=== PATIENT | female | born 1980 | race Caucasian/White ===

== ENCOUNTER 2018-06-01 12:08 | Inpatient (IN) ==
[2018-06-01] MEDS ORDERED: ZOFRAN IV ONE (12:15)
[2018-06-01] MEDS ORDERED: NS 1,000 ML IV ONE ×3 (12:15→14:08)
[2018-06-01 12:38] LABS: ALLEN TEST YES; BE -26.1 mmoll (-3.0-3.0); BLOOD TYPE ARTERIAL; HCO3-(ACT) 4.6 mmoll (20.0-26.0); METHB 1.3 % (0.0-1.5); O2(CT) 13.2 mL/dL (15.0-23.0); O2HB 95.5 % (95.0-99.0); PO2(98.6) 102 mmHg (60-100); SAMPLE BLOOD; SAO2 99.3 % (95.0-100.0); THB 9.7 g/dL (11.5-17.4)
[2018-06-01 12:39] LABS: MODALITY ROOM AIR; PCO2(98.6) 14 mmHg (35-45); pH(98.6) 6.99 (7.35-7.45)
[2018-06-01 13:20] LABS: BASO# 0.15 X1000 (0.0-0.2); BASO% 0.6 % (0.0-0.8); EOS# 0.04 X1000 (0.0-0.7); EOS% 0.2 % (0.0-10.0); HEMATOCRIT 33.9 % (37.0-47.0); HEMOGLOBIN 10.4 g/dL (12.0-16.0); IMM GRAN# 0.84 X1000 (0.0-0.04); IMM GRAN% 3.5 % (0.0-0.5); LYMPH# 2.41 X1000 (1.2-3.4); LYMPH% 10.1 % (20.5-51.1); MCH 25.2 PG (27-31); MCHC 30.7 g/dL (33-37); MCV 82.3 FL (81-99); MONO# 2.65 X1000 (0.11-0.59); MONO% 11.1 % (1.7-9.3); MPV 9.9 FL (7.4-10.4); NEUT# 17.72 X1000 (1.4-6.5); NEUT% 74.5 % (42.2-75.2); PLT 397 X1000 (130-400); RBC 4.12 XMIL (4.2-5.4); RDW 14.6 % (11.5-14.5); WBC 23.81 X1000 (4.8-10.8)
[2018-06-01 13:34] LABS: ACETONE SERUM MODERATE (NEGATIVE)
[2018-06-01] MEDS ORDERED: D50W SYRINGE IV PRN (13:34)
[2018-06-01] MEDS: NS 1,000 ML IV SCH ×5 (13:34→23:39)
[2018-06-01 13:41] LABS: BANDS 2 % (0-1); LYMPHS 18 % (21-51); MONO 9 % (1-9); SEGS 70 % (42-75)
[2018-06-01] MEDS: HUMULIN R 100 UNIT in NS 100 ML IV SCH (13:45)
--- NOTE | 2018-06-01 13:53 | Diag Imaging Result Doc PS360 ---
EXAM: CHEST-1 VIEW 06/01/2018 HISTORY: SOB TECHNIQUE: AP upright portable at 1343 COMMENT: There is a somewhat ill-defined small nodular opacity present in the lateral lower mid left lung. There are no previous studies. IMPRESSION: Left lower lobe bronchopneumonia. Advise follow-up until clear. Electronically signed by Michel Vogel 06/01/2018 1:51 PM
[2018-06-01 14:00] LABS: AGAP 26; ALB/GLOB RATIO 0.8; ALBUMIN 3.8 g/dL (3.5-5.0); ALKALINE PHOSPHATASE 213 U/L (32-104); BUN 18 mg/dL (8-22); CALCIUM 9.3 mg/dL (8.8-10.2); CHLORIDE 96 mmol/L (98-107); COSMO 281; CREATININE 0.9 mg/dL (0.5-0.9); ESTIMATED GFR > 60; GOT 60 U/L (10-30); GPT 91 U/L (10-36); MAGNESIUM 2.3 mg/dL (1.5-2.7); PHOSPHORUS 2.9 mg/dL (2.7-4.5); POTASSIUM 4.3 mmol/L (3.5-5.1); SODIUM 127 mmol/L (136-145); TCO2 5 mmol/L (25-35); TOTAL BILIRUBIN 0.27 mg/dL (0.20-1.00); TOTAL PROTEIN 8.5 g/dL (6.3-8.3)
[2018-06-01 14:01] LABS: URINE SOURCE CLEAN CATCH
[2018-06-01 14:03] LABS: GLUCOSE 539 mg/dL (70-104)
[2018-06-01] MEDS ORDERED: LEVAQUIN 750 MG in NS 150 ML IV ONE (14:07)
[2018-06-01 14:09] LABS: BILIRUBIN URINE NEGATIVE (NEGATIVE); BLOOD URINE LARGE (NEGATIVE); COLOR ORANGE; GLUCOSE URINE >1000 mg/dL (NEGATIVE); KETONE URINE >150 mg/dL (NEGATIVE); LEUKOCYTES URINE NEGATIVE (NEGATIVE); NITRITE URINE NEGATIVE (NEGATIVE); PH URINE 5.5; PROTEIN URINE 70 mg/dL (NEGATIVE); SP GRAVITY URINE 1.017; TURBIDITY URINE HAZY (CLEAR); UROBILINOGEN URINE NORMAL (NORMAL)
[2018-06-01 14:10] LABS: UR EPITHELIAL CELLS <10 /HPF (<10); URINE BACTERIA NEGATIVE /HPF; URINE RBC TNTC /HPF (<10); URINE WBC <10 /HPF (<10)
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
[2018-06-01 14:21] LABS: UR AMPHETAMINES QUAL NONE DETECTED (NONE DETECT); UR BARBITUATES QUAL NONE DETECTED (NONE DETECT); UR BENZODIAZEPIN QUAL NONE DETECTED (NONE DETECT); UR CANNABINOIDS QUAL NONE DETECTED (NONE DETECT); UR COCAINE QUAL NONE DETECTED (NONE DETECT); UR METHADONE QUAL NONE DETECTED (NONE DETECT); UR OPIATES QUAL NONE DETECTED (NONE DETECT); UR OXYCODONE QUAL NONE DETECTED (NONE DETECT); UR PCP QUAL NONE DETECTED (NONE DETECT)
--- NOTE | 2018-06-01 14:32 | EKG Report ---
Test Performed on : 06/01/2018 2:08:08 PM Test Reason : SOB Blood Pressure : / mmHG Vent. Rate : 110 BPM Atrial Rate : 110 BPM P-R Int : 184 ms QRS Dur : 100 ms QT Int : 310 ms P-R-T Axes : 068 006 048 degrees QTc Int : 419 ms Sinus tachycardia. Nonspecific T wave abnormality Abnormal ECG No previous ECGs available Unconfirmed Result
[2018-06-01 14:34] LABS: ALLEN TEST YES; BE -26.7 mmoll (-3.0-3.0); BLOOD TYPE ARTERIAL; HCO3-(ACT) 4.1 mmoll (20.0-26.0); METHB 0.7 % (0.0-1.5); O2HB 95.2 % (95.0-99.0); PO2(98.6) 86 mmHg (60-100); SAMPLE BLOOD; SAO2 99.9 % (95.0-100.0); THB 8.9 g/dL (11.5-17.4)
[2018-06-01 14:37] LABS: MODALITY ROOM AIR; PCO2(98.6) 16 mmHg (35-45); pH(98.6) 6.95 (7.35-7.45)
--- NOTE | 2018-06-01 14:44 | ED EKG INTERP ---
EKG Interpretation - EKG Time of EKG reading by physician:: 14:08 EKG Read and Signed by:: Jimmy Antunez EKG Interpretation (*Must complete 3 of following elements*): Abnormal Rate: 110 Rhythm: SINUS TACH [place]: normal QRS: normal SC Interval: normal ST Wave: non-specific ST changes Attestation - Physician/ THEODORE Attestation The physician spent face to face time with patient:: Yes Advanced Practice Provider documentation review:: Supervising physician onsite and consulted in the evaluation and care of this patient. The physician did have a face to face encounter with the patient.
--- NOTE | 2018-06-01 16:14 | Diag Imaging Result Doc PS360 ---
US ABDOMEN-COMPLETE - 06/01/2018 INDICATION: n/v, elevated lfts COMPARISON: None FINDINGS: The liver is moderately fatty. There is a moderately large stone at the gallbladder neck that measures about 2 cm. No gallbladder distention or surrounding free fluid. Common bile duct measures 5 mm. The pancreas, spleen, and both kidneys are normal. Aorta, IVC, and main portal vein are patent. IMPRESSION: 1. Moderately fatty liver. 2. Small gallstone in the gallbladder. Electronically signed by Yosi Rosas 06/01/2018 4:12 PM
[2018-06-01 16:16] LABS: ALLEN TEST YES; BE -26.3 mmoll (-3.0-3.0); BLOOD TYPE ARTERIAL; HCO3-(ACT) 4.4 mmoll (20.0-26.0); METHB 0.9 % (0.0-1.5); O2HB 93.6 % (95.0-99.0); PO2(98.6) 78 mmHg (60-100); SAMPLE BLOOD; SAO2 96.6 % (95.0-100.0); THB 9.8 g/dL (11.5-17.4)
[2018-06-01 16:18] LABS: PCO2(98.6) 16 mmHg (35-45); pH(98.6) 6.97 (7.35-7.45)
[2018-06-01 16:19] LABS: MODALITY ROOM AIR
--- NOTE | 2018-06-01 16:19 | HISTORY AND PHYSICAL ---
CHIEF COMPLAINT: Nausea, vomiting, and fever. HISTORY OF PRESENT ILLNESS: Mrs. Cedeno is a 37-year-old female with a history of apparent uncontrolled diabetes mellitus, who presents to the ER with nausea and vomiting since last . She denies any abdominal pain. No diarrhea, but does report a fever, maximum of 104.3. She has been a little more short of breath but denies any lower extremity edema, orthopnea, or chest pain. She is really unable to keep anything down. She came to the ER today for evaluation and was noted to have a white count of 23,000. Her chemistry was consistent with diabetic ketoacidosis. Blood gas confirmed the severe metabolic acidosis, consistent with diabetic ketoacidosis. Chest x-ray shows left lower lobe pneumonia. She is going to be admitted for further treatment and evaluation. PAST MEDICAL HISTORY: Diabetes mellitus type 2 diagnosed in 2017, poorly controlled. She does not check her blood sugars. She reports having lost her machine, otherwise she denies any other medical problems. SURGICAL HISTORY: C section x3. SOCIAL HISTORY: No tobacco, alcohol, or drug use. 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 She is , has three children. REVIEW OF SYSTEMS: A 14-point review of systems was obtained and found to be negative with the exception of the HPI. HOME MEDICATIONS: Metformin once daily. ALLERGIES: Penicillin, morphine, Bactrim. PHYSICAL EXAM: VITAL SIGNS: Blood pressure is 164/89, heart rate 113, respiratory rate 23 and O2 saturation is 97% on room air. Temperature not recorded. GENERAL: This is an obese and disheveled appearing 37-year-old female lying in a hospital bed in no acute distress. NEUROLOGICAL: She is oriented without focal deficits. HEENT: Normocephalic, atraumatic. Pupils are equal, round and reactive to light. Oral mucosa is dry. Trachea is midline. There is no JVD. CHEST: Essentially clear to auscultation bilaterally. CV: Tachy but regular. S1, S2 is noted. No murmurs. GI: Slightly distended but no overt pain to palpation. Bowel sounds are hypoactive. EXTREMITIES: Without edema. Pulses are 2+ bilaterally. DIAGNOSTIC DATA: Chest x-ray shows left lower lobe pneumonia. EKG shows sinus tachycardia. No acute ST or T abnormalities. WBC 23.81, hemoglobin 10.4, hematocrit 33.9, platelet count 397,000. Most recent ABG on room air - pH 6.95, CO2 16, O2 86, bicarbonate 4.1. Potassium 4.3, chloride 96, CO2 is 5, anion gap 26, BUN 18, creatinine 0.9, glucose is 539. Corrected sodium for glucose 134. Calcium 9.3. Phosphorus 2.9. Magnesium 2.3. Total bilirubin 0.27. AST 60 and ALT 91. Alkaline phosphatase 213. Protein 8.5. Albumin 3.8. Urine shows too numerous to count blood, greater than 1000 glucose. Toxicology shows moderate acetone. Drug screen is negative. ASSESSMENT AND PLAN: 1. Diabetic ketoacidosis: Likely a combination of sepsis, pneumonia, and medical noncompliance. She will be started on a diabetic ketoacidosis protocol. We will monitor her electrolytes and fluid volume balance closely and adjust as needed. We will switch to subcutaneous insulin once appropriate. 2. Sepsis: Secondary to pneumonia. She is hemodynamically stable. Her arterial blood gas lactate is within normal limits. Will continue fluid resuscitation and broad spectrum antibiotics. 3. Community acquired pneumonia: As above. Will be sure to add breathing treatments, aggressive pulmonary toilet, and oxygen if necessary. 4. Elevated liver function tests: The patient denies any history of alcohol use. No drug use and no history of hepatitis. Will check a hepatitis panel as well as acetaminophen and salicylates. Will check an abdominal ultrasound as well. 5. Anemia: Iron studies pending. Will treat accordingly. She denies melena. 6. Medical noncompliance: The patient is clearly noncompliant with medications. She does not check her blood sugar and it is unclear exactly how often she is taking metformin. We have consulted Social Work as well as nutrition. Will monitor her education daily. 7. Deep venous thrombosis prophylaxis with sequential compression devices. Further recommendations to follow. Dictated by PATRICIA Summers for Lewis Clark MD Addendum: Patient seen and examined by myself. Agree with PATRICIA note. It reflects my assessment and plan. Patient is being admitted to hospital for DKA so will start insulin drip and check BMP every four hours. Will start also broad spectrum antibiotics. Will monitor patient closely. cc: PATRICIA Summers MD [facility]
[2018-06-01 19:25] LABS: ACETAMINOPHEN < 1.2 ug/mL (10-30); IRON SATURATION 7 %; SALICYLATES < 3.00 mg/dL (3-10); TIBC 305 ug/dL; TOTAL IRON 22 ug/dL (49-151); UNBOUND IRON 283 ug/dL (112-346)
[2018-06-01 19:51] LABS: TSH 0.55 uIUmL (0.27-4.20)
[2018-06-01 19:54] LABS: FREE T4 0.66 ng/dL (0.93-1.70)
[2018-06-01 19:59] LABS: FERRITIN 225 ng/mL (13-150)
[2018-06-01] MEDS: ZYVOX 600 MG/D5W 600 MG/300 ML IVPB IV SCH (20:26)
[2018-06-01] MEDS: MAXIPIME 1 GM in NS 50 ML IV SCH (20:26)
[2018-06-01 20:57] LABS: ALLEN TEST YES; BE -24.5 mmoll (-3.0-3.0); BLOOD TYPE ARTERIAL; HCO3-(ACT) 5.7 mmoll (20.0-26.0); METHB 1.7 % (0.0-1.5); O2(CT) 11.5 mL/dL (15.0-23.0); PO2(98.6) 58 mmHg (60-100); SAMPLE BLOOD; SAO2 91.3 % (95.0-100.0); THB 9.3 g/dL (11.5-17.4)
[2018-06-01 20:58] LABS: MODALITY CANNULA
[2018-06-01 20:59] LABS: PCO2(98.6) 19 mmHg (35-45); pH(98.6) 7.01 (7.35-7.45)
[2018-06-01 21:00] LABS: O2HB 87.8 % (95.0-99.0)
[2018-06-01 22:36] LABS: AGAP 22; BUN 19 mg/dL (8-22); CALCIUM 8.3 mg/dL (8.8-10.2); CHLORIDE 108 mmol/L (98-107); COSMO 284; CREATININE 0.8 mg/dL (0.5-0.9); ESTIMATED GFR > 60; GLUCOSE 248 mg/dL (70-104); PHOSPHORUS 1.6 mg/dL (2.7-4.5); POTASSIUM 3.4 mmol/L (3.5-5.1); SODIUM 137 mmol/L (136-145); TCO2 7 mmol/L (25-35)
[2018-06-01 23:42] LABS: INR 1.16; PROTIME 15.8 Seconds (11.0-16.0); PTT 22.8 Seconds (22.3-41.8)
[2018-06-02] MEDS ORDERED: SODIUM BICARBONATE 8.4% IV PUSH ONE ×2 (00:21→11:05)
[2018-06-02 00:32] LABS: ALLEN TEST YES; BE -24.2 mmoll (-3.0-3.0); BLOOD TYPE ARTERIAL; METHB 1.1 % (0.0-1.5); O2(CT) 11.9 mL/dL (15.0-23.0); O2HB 93.9 % (95.0-99.0); PCO2(98.6) 38 mmHg (35-45); PO2(98.6) 83 mmHg (60-100); SAMPLE BLOOD; SAO2 97.3 % (95.0-100.0); THB 8.9 g/dL (11.5-17.4)
[2018-06-02 00:33] LABS: MODALITY NRB
[2018-06-02] MEDS: OFIRMEV 1000 MG/ISOTONIC SOLN 1,000 MG/100 ML BOTTLE IV PRN ×2 (01:53→11:37)
[2018-06-02 02:22] LABS: ALLEN TEST YES; BLOOD TYPE ARTERIAL; HCO3-(ACT) 10.1 mmoll (20.0-26.0); METHB 1.4 % (0.0-1.5); O2(CT) 12.8 mL/dL (15.0-23.0); O2HB 93.4 % (95.0-99.0); PCO2(98.6) 27 mmHg (35-45); PO2(98.6) 69 mmHg (60-100); SAMPLE BLOOD; SAO2 96.8 % (95.0-100.0); THB 9.7 g/dL (11.5-17.4)
[2018-06-02 02:24] LABS: MODALITY BI PAP; pH(98.6) 7.12 (7.35-7.45)
[2018-06-02] MEDS: NS 1,000 ML IV SCH ×5 (02:31→13:35)
[2018-06-02] MEDS: D5 NS 1,000 ML IV SCH ×3 (03:12→09:45)
[2018-06-02 05:23] LABS: BE -19.9 mmoll (-3.0-3.0); BLOOD TYPE ARTERIAL; HCO3-(ACT) 9.4 mmoll (20.0-26.0); METHB 1.4 % (0.0-1.5); O2(CT) 15.4 mL/dL (15.0-23.0); O2HB 96.1 % (95.0-99.0); PCO2(98.6) 28 mmHg (35-45); PO2(98.6) 111 mmHg (60-100); SAMPLE BLOOD; SAO2 99.3 % (95.0-100.0); THB 11.3 g/dL (11.5-17.4)
[2018-06-02 05:27] LABS: MODALITY BI PAP; pH(98.6) 7.09 (7.35-7.45)
[2018-06-02 05:34] LABS: BASO# 0.09 X1000 (0.0-0.2); EOS# 0.56 X1000 (0.0-0.7); HEMATOCRIT 27.6 % (37.0-47.0); HEMOGLOBIN 8.9 g/dL (12.0-16.0); IMM GRAN# 0.14 X1000 (0.0-0.04); IMM GRAN% 1.5 % (0.0-0.5); LYMPH# 1.59 X1000 (1.2-3.4); MCH 25.6 PG (27-31); MCHC 32.2 g/dL (33-37); MCV 79.5 FL (81-99); MONO# 0.74 X1000 (0.11-0.59); MONO% 7.9 % (1.7-9.3); MPV 10.1 FL (7.4-10.4); NEUT# 6.21 X1000 (1.4-6.5); NEUT% 66.6 % (42.2-75.2); PLT 209 X1000 (130-400); RBC 3.47 XMIL (4.2-5.4); RDW 14.4 % (11.5-14.5); WBC 9.33 X1000 (4.8-10.8)
--- NOTE | 2018-06-02 06:00 | Diag Imaging Result Doc PS360 ---
EXAM: CHEST-PORTABLE HISTORY: decline in patient status TECHNIQUE: Portable chest single view COMPARISON: 06/01/2017 FINDINGS: Interval development of dense bilateral infiltrates. Cardiac megaly remains. Poor inspiratory effort. No pleural effusions identified. IMPRESSION: Dense bilateral infiltrates more pronounced than on the prior study.. Electronically signed by Castillo Quiroz 06/02/2018 5:57 AM
--- NOTE | 2018-06-02 07:24 | EKG Report ---
Test Performed on : 06/02/2018 00:31:28 AM Test Reason : TACHYCARDIA Blood Pressure : / mmHG Vent. Rate : 121 BPM Atrial Rate : 121 BPM P-R Int : 190 ms QRS Dur : 094 ms QT Int : 288 ms P-R-T Axes : 053 019 -03 degrees QTc Int : 408 ms Sinus tachycardia. with occasional premature ventricular complexes. Nonspecific T wave abnormality Abnormal ECG When compared with ECG of 01-JUN-2018 14:08, (Unconfirmed) premature ventricular complexes. are now present Nonspecific T wave abnormality, worse in Inferior leads Confirmed by Zoe RANDHAWA, Nicko Villanueva ([id number]) on 06/02/2018 5:55:27 PM
[2018-06-02 07:55] LABS: BANDS 24 % (0-1); LYMPHS 14 % (21-51); MONO 6 % (1-9); NRBC 1 % (0-0); SEGS 50 % (42-75)
[2018-06-02] MEDS: ZYVOX 600 MG/D5W 600 MG/300 ML IVPB IV SCH (08:09)
[2018-06-02] MEDS: MAXIPIME 1 GM in NS 50 ML IV SCH (08:09)
[2018-06-02] MEDS ORDERED: MAGNESIUM SULFATE 2 GM/S.W.I. 2 GM/50 ML IVPB IV PRN (08:28)
[2018-06-02] MEDS ORDERED: LASIX IV ONE (08:43)
[2018-06-02 08:55] LABS: ALLEN TEST YES; BE -16.4 mmoll (-3.0-3.0); BLOOD TYPE ARTERIAL; HCO3-(ACT) 12.1 mmoll (20.0-26.0); METHB 1.3 % (0.0-1.5); O2(CT) 14.5 mL/dL (15.0-23.0); O2HB 93.2 % (95.0-99.0); PCO2(98.6) 27 mmHg (35-45); PO2(98.6) 66 mmHg (60-100); SAMPLE BLOOD; SAO2 96.5 % (95.0-100.0); SRATE 10 BPM
[2018-06-02 08:56] LABS: MODALITY BI PAP
[2018-06-02 08:57] LABS: pH(98.6) 7.19 (7.35-7.45)
--- NOTE | 2018-06-02 09:05 | PROGRESS NOTE ---
DATE: 06/02/2018 SUBJECTIVE: This patient is tachypneic, and apparently she is feeling a little bit better compared with yesterday, but she is tired. She is on the BiPAP machine at this moment. I do not have a BMP at this moment. She is still on the insulin drip, pending also magnesium and phosphorus. OBJECTIVE: Vital Signs: Temperature 97.9, pulse 119, respiratory rate on the monitor 38, blood pressure 127/70. Oxygen saturation 99 on the BiPAP machine. HEENT: Head normocephalic. No trauma. PERRLA. Neck: Supple. No JVD. Central trachea. Chest: Coarse breath sounds bilaterally. Abdomen: Soft, nontender, nondistended. No hepatosplenomegaly. Extremities: No edema. No clubbing. No cyanosis. Neurological examination: This patient is sleepy, but arousable. Oriented x3. She is following commands. LABORATORY: WBC 9.3, hemoglobin 8.9, hematocrit 27.6, platelets 209. The pH at. 5:16 a.m. was 7.09 with pCO2 27, PO2 69 and bicarbonate 10.1 pending BMP. ASSESSMENT AND PLAN: 1. Diabetic ketoacidosis. She has been started on the diabetic ketoacidosis protocol, but I am missing the lab work today. I already asked the nurse to call the laboratory. I will hold for now the fluids because her x-ray showed dense bilateral infiltrates more pronounced than the prior study done yesterday. She is hypoxemic as well with possible pneumonia. Her diabetic ketoacidosis could be a combination of sepsis, pneumonia and medical noncompliance. 2. Sepsis, likely secondary to pneumonia. She has been placed on cefepime and Zyvox. For now, we will continue with the same management. 3. Community-acquired pneumonia. I do believe she has some infiltrates at the bases. She came in with leukocytosis at 23,000; today it is better at 9.3. 4. Acute hypoxemic respiratory failure. She has dense infiltrates bilaterally. She is in the BiPAP machine, and I will request an evaluation by Pulmonary Department. I will stop the fluids for now, but I will continue with the insulin drip, and I will give her a dose of Lasix. 5. Elevated liver function tests. She denies any history of alcohol. I think we already asked for hepatitis panel. Will monitor. 6. Anemia. Continue to monitor. 7. Medical noncompliance. This patient's hemoglobin A1c is 13. So, she has not been taking care of her medications at home. I will make sure that she understands the importance of taking her medications as prescribed. 8. Hypophosphatemia. We will monitor and replace. 9. Hypokalemia. We will replace as well, but pending new lab work. This patient feels a little bit better compared with yesterday, but she seems to be remarkably sick. I have requested an evaluation by Pulmonary Department, and I will ask again Infectious Disease Department to see this patient to treat her pneumonia. CRITICAL CARE TIME: 45 minutes. cc: Ivan Lopez MD
[2018-06-02 10:04] LABS: PHOSPHORUS 0.5 mg/dL (2.7-4.5)
[2018-06-02 10:05] LABS: POTASSIUM 2.4 mmol/L (3.5-5.1)
[2018-06-02 10:06] LABS: CALCIUM 8.9 mg/dL (8.8-10.2); CREATININE 1.2 mg/dL (0.5-0.9); MAGNESIUM 1.8 mg/dL (1.5-2.7)
[2018-06-02] MEDS: POTASSIUM CHLORIDE 20 MEQ/SWI 20 MEQ/100 ML IVPB IV SCH ×4 (10:26→18:01)
[2018-06-02] MEDS: SODIUM BICARBONATE 8.4% IV PUSH ONE ×2 (10:30→11:31)
[2018-06-02] MEDS: SODIUM PHOSPHATE 30 MMOL in D5W 250 ML IV PRN ×2 (10:33→22:31)
[2018-06-02] MEDS ORDERED: ATIVAN ONE (10:52)
[2018-06-02 11:07] LABS: ALLEN TEST YES; BE -16.9 mmoll (-3.0-3.0); BLOOD TYPE ARTERIAL; HCO3-(ACT) 11.7 mmoll (20.0-26.0); METHB 1.3 % (0.0-1.5); O2(CT) 11.4 mL/dL (15.0-23.0); O2HB 92.6 % (95.0-99.0); PO2(98.6) 71 mmHg (60-100); SAMPLE BLOOD; SAO2 96.1 % (95.0-100.0); SRATE 14 BPM; THB 8.7 g/dL (11.5-17.4); TVOL 500 mL
[2018-06-02 11:08] LABS: MODALITY VENTILATOR; PCO2(98.6) 51 mmHg (35-45); pH(98.6) 7.02 (7.35-7.45)
--- NOTE | 2018-06-02 11:14 | PROGRESS NOTE ---
DATE: 06/02/2018 SUBJECTIVE: The patient seen and evaluated by me again. A code blue was called because this patient had a cardiac arrest. The code blue started at 10:35 and ended up at 10 :40. This patient now has sinus tachycardia. I will get an EKG just to corroborate these. We just received also a preliminary blood culture that showed gram-negative rods. She has been placed already on cefepime and linezolid. I will continue with that for now. Infectious Disease Department has been consulted. Like I mentioned before, the code Blue started at 10:35. No pulse activity on the monitor or physical exam. This patient's oxygen saturation also dropped really fast. Apparently, she removed her BiPAP machine a little bit before this episode. She received 2 doses of bicarbonate, epinephrin and she is currently receiving potassium through her vein. Also, we started to replace her phosphorus, which is really low. spontaneous circulation at 10:40 am, I have stopped momentarily her IV fluids because her chest x-ray showed a dense bilateral infiltrates that are more pronounced than the one done before. She has been intubated during the code. Oxygen saturation seems to be more stable, around 93%. Pulmonary department will be on board. They have they have been already consulted. cc: Ivan Lopez MD MTDD
--- NOTE | 2018-06-02 11:28 | Diag Imaging Result Doc PS360 ---
EXAM: CHEST-PORTABLE 06/02/2018 HISTORY: intubation TECHNIQUE: AP portable at 1115 COMMENT: There is an endotracheal tube with its tip approximately 3 cm above the kaitlyn. There is patchy alveolar opacity bilaterally particularly in the left upper lobe. Compared to the previous study of 06/02/2018 at 0037, there has been some slight improvement in aeration of the left lower lobe and right lower lobe. IMPRESSION: Improved pneumonia. Electronically signed by Michel Vogel 06/02/2018 11:26 AM
[2018-06-02 11:38] LABS: BASO# 0.29 X1000 (0.0-0.2); BASO% 1.5 % (0.0-0.8); EOS# 0.09 X1000 (0.0-0.7); EOS% 0.5 % (0.0-10.0); HEMATOCRIT 25.9 % (37.0-47.0); HEMOGLOBIN 8.2 g/dL (12.0-16.0); IMM GRAN# 0.59 X1000 (0.0-0.04); IMM GRAN% 3.1 % (0.0-0.5); LYMPH# 3.62 X1000 (1.2-3.4); LYMPH% 19.3 % (20.5-51.1); MCH 25.7 PG (27-31); MCHC 31.7 g/dL (33-37); MCV 81.2 FL (81-99); MONO# 1.48 X1000 (0.11-0.59); MONO% 7.9 % (1.7-9.3); MPV 9.5 FL (7.4-10.4); NEUT# 12.73 X1000 (1.4-6.5); NEUT% 67.7 % (42.2-75.2); PLT 351 X1000 (130-400); RBC 3.19 XMIL (4.2-5.4); RDW 14.6 % (11.5-14.5)
[2018-06-02 12:11] LABS: BANDS 34 % (0-1); LARGE PLATELETS 1+; LYMPHS 24 % (21-51); MONO 4 % (1-9); SEGS 36 % (42-75)
[2018-06-02 12:27] LABS: HEPATITIS PROFILE ACUTE SEE COMMENTS
[2018-06-02] MEDS: DIPRIVAN 1% 1,000 MG/100 ML BOTTLE IV SCH ×4 (12:50→22:12)
[2018-06-02] MEDS ORDERED: POTASSIUM CHLORIDE 20% LIQUID PO ONE (12:59)
[2018-06-02] MEDS ORDERED: EPINEPHRINE SYRINGE ONE (13:30)
[2018-06-02] MEDS ORDERED: SODIUM BICARBONATE 8.4% ONE (13:30)
[2018-06-02 13:42] LABS: POTASSIUM 1.7 mmol/L (3.5-5.1)
[2018-06-02 13:43] LABS: ALBUMIN 2.8 g/dL (3.5-5.0); CALCIUM 8.6 mg/dL (8.8-10.2); CREATININE 1.3 mg/dL (0.5-0.9)
--- NOTE | 2018-06-02 13:55 | Diag Imaging Result Doc PS360 ---
EXAM: CHEST-PORTABLE HISTORY: NGT placement TECHNIQUE: Chest single view COMPARISON: 11:15 AM FINDINGS: Endotracheal tube in good position. Interval placement of a nasogastric tube. This overlies the esophagus. Although there is motion on the exam, the nasogastric tube doesn't enter the stomach. No other interval change. IMPRESSION: Nasogastric tube enters the stomach. Electronically signed by Castillo Quiroz 06/02/2018 1:52 PM
--- NOTE | 2018-06-02 14:25 | INFECTIOUS DISEASE CONSULT REP ---
DATE: 06/02/2018 CONCLUSION: The patient has bilateral pneumonia and a positive blood culture for gram-negative rods. I suspect she has a pneumonia which could be due to aspiration and she has developed a bacteremia from the pneumonia. The patient also has an area in her right axilla that is reddish to pinkish color. 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 The patient had a cardiac arrest this morning and was resuscitated from it. The patient may have an immunoglobulin deficiency. The patient also has a pinkish to red rash in the right axilla. I think this could be due to an infection such as that caused by Anum. RECOMMENDATIONS: I agree with treating the patient with cefepime. I have increased the dose to 2 g IV every 12 hours and I have discontinued Zyvox. I have also ordered immunoglobulin levels. I have taken a culture from the patient's axilla. Also, I have ordered immunoglobulin levels. DISCUSSION: The patient is unable to provide a history and no family member was present. The information I have is from data in the computer and also from the history and physical that was done. The patient had nausea and vomiting and fever at home. She then came to the emergency room and there it was found she was in diabetic ketoacidosis. Her CBC shows a white count of 18,800, hemoglobin 8.2 and platelet count 351,000. Blood cultures are growing a gram- negative gerry. Chest x-ray has bilateral opacities. The patient's blood gases show a pH of 7.02, a PO2 of 71, a pCO2 of 51. Creatinine is 1.4. GFR is 42. Urinalysis showed no white cells or bacteria. Hepatitis panel is nonreactive. PAST MEDICAL HISTORY: Positive for diabetes mellitus which is poorly controlled. PAST SURGICAL HISTORY: Patient's surgical history is positive for 3 C-sections. SOCIAL HISTORY: The patient does not smoke cigarettes, drink alcoholic beverages or abuse drugs. 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 She is and has 3 children. REVIEW OF SYSTEMS: Unable to be obtained. HOME MEDICATIONS: Include metformin once a day. ALLERGIES: The patient has allergies to penicillin, morphine and Bactrim. The patient has received cefepime already intravenously and she appears to have tolerated it well. PHYSICAL EXAMINATION: Vital Signs: Temperature is 100.7, pulse is 122, respirations 22, blood pressure 105/62. General: This is an ill-appearing young female. She is intubated. Head, Eyes, Ears, Nose and Throat: The patient has an orotracheal tube in place. There is no drainage from the nose or ears. Neck: No meningismus. Lungs: Scattered rhonchi bilaterally. Cardiovascular: Heart rate is rapid and regular. Abdomen: Soft and apparently not tender. Integument: In the right axilla there is a pinkish area that has a small fistula in it. I stuck the swab in for a culture into the fistula and there was a little bit of bleeding that occurred, but stopped once a dressing was put on over it. Neurologic: Patient is obtunded. She did not respond to verbal stimuli. There was no tremor. Thank you for the consult. cc: Juan Engle MD MTDD
[2018-06-02 15:47] LABS: ALLEN TEST YES
[2018-06-02 16:18] LABS: ALLEN TEST YES; BE -11.1 mmoll (-3.0-3.0); BLOOD TYPE ARTERIAL; HCO3-(ACT) 16.3 mmoll (20.0-26.0); METHB 1.4 % (0.0-1.5); O2(CT) 18.6 mL/dL (15.0-23.0); O2HB 96.6 % (95.0-99.0); PCO2(98.6) 39 mmHg (35-45); PO2(98.6) 207 mmHg (60-100); SAMPLE BLOOD; SAO2 99.7 % (95.0-100.0); SRATE 18 BPM; THB 13.4 g/dL (11.5-17.4); TVOL 500 mL; pH(98.6) 7.22 (7.35-7.45)
[2018-06-02 16:19] LABS: MODALITY VENTILATOR
[2018-06-02 16:32] LABS: CALCIUM 8.8 mg/dL (8.8-10.2); CREATININE 1.4 mg/dL (0.5-0.9); MAGNESIUM 2.1 mg/dL (1.5-2.7); PHOSPHORUS 1.6 mg/dL (2.7-4.5); POTASSIUM 2.8 mmol/L (3.5-5.1)
[2018-06-02] MEDS: HUMULIN R 100 UNIT in NS 100 ML IV SCH (18:00)
[2018-06-02] MEDS ORDERED: MAXIPIME 2 GM in NS 50 ML IV SCH ×2 (20:00)
[2018-06-02 20:20] LABS: ALLEN TEST YES; BE -11.8 mmoll (-3.0-3.0); BLOOD TYPE ARTERIAL; HCO3-(ACT) 15.7 mmoll (20.0-26.0); METHB 1.4 % (0.0-1.5); O2(CT) 19.6 mL/dL (15.0-23.0); O2HB 96.4 % (95.0-99.0); PCO2(98.6) 37 mmHg (35-45); PO2(98.6) 167 mmHg (60-100); SAMPLE BLOOD; SAO2 99.4 % (95.0-100.0); SRATE 18 BPM; THB 14.2 g/dL (11.5-17.4); TVOL 500 mL; pH(98.6) 7.22 (7.35-7.45)
[2018-06-02 20:21] LABS: MODALITY VENTILATOR
--- NOTE | 2018-06-02 20:52 | CONSULTATION ---
DATE OF CONSULTATION: 06/02/2018 REQUESTING PROVIDER: Dr. Ivan Jones. REASON FOR CONSULTATION: Hypoxemic respiratory failure. HISTORY OF PRESENT ILLNESS: This is a 37-year-old female with a medical history of uncontrolled diabetes mellitus and morbid obesity. She presented to the ER on 06/01/2018 with nausea and vomiting for 4 days. Chest x-ray revealed left lower lobe pneumonia with lab revealed diabetic ketoacidosis and sepsis. The patient has been admitted to the ICU for further evaluation and management. At the time of my examination patient has been intubated. The nurse at the bedside reported patient's potassium was 2.4 this morning and IV potassium was initiated. After about 10 minutes of potassium infusion, patient was in code and CPR lasted about 5 mins. There is no family at bedside. PAST MEDICAL HISTORY: Diabetes mellitus type 2 diagnosed in 2017 poorly controlled and morbid obesity SURGICAL HISTORY: Per e-chart, x3. SOCIAL HISTORY: Per E-chart, No tobacco, alcohol, illicit drug use. The patient is , has 3 kids. 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 Patient's parent and siblings are . FAMILY HISTORY: Unable to be obtained. REVIEW OF SYSTEMS: Unable to be obtained. ALLERGIES: Penicillin, morphine, Bactrim. PHYSICAL EXAMINATION: Vital Signs: Temperature 97.9, blood pressure 120/61, pulse 170, respiratory rate 14, oxygen saturation 95 percent on AC mechanical ventilator with 100% FiO2, 500 tidal volume and PEEP of 8. General: Morbid obesity female; face pale; intubated. HEENT: Atraumatic, trachea midline. ET tube in place. Respiratory: Clear to auscultation bilaterally. Cardiovascular: Sinus tachycardia with regular rate and rhythm, no murmur noted. Gastrointestinal: Normoactive bowel sounds in all 4 quadrants. Soft, obese. Extremities: No pedal edema, no cyanosis, no clubbing. There is a small wound-appearing hole with surrounding erythema and foul odor under the patient's right armpit. Neurologic: Patient is sedated and unresponsive at this time. IMAGING DATA: Chest x-ray revealed dense bilateral infiltrates more pronounced than on the previous study. LAB DATA: White blood cell 9.33, hemoglobin 8.9, hematocrit 27.6, platelet 209, 000. Sodium 139, potassium 2.4, chloride 112, carbon dioxide 11, BUN 18, creatinine 1.2, glucose 208. ABG, pH 7.19, pCO2 27, PO2 66, HCO3 12.1, base excess -16.4 and oxyhemoglobin 93.2. This ABG was obtained when the patient was on BiPAP 16/6 with FiO2 60%. ASSESSMENT AND PLAN: This is a 37-year-old female with medical history of uncontrolled diabetes mellitus type 2 and morbid obesity. She has been admitted for diabetic ketoacidosis, community-acquired pneumonia and sepsis. 1. Diabetic ketoacidosis. on a diabetic ketoacidosis protocol 2. Sepsis. Agree to continue fluid resuscitation and broad spectrum antibiotics. 3. Acute hypoxemic hypercapnic respiratory failure. Continue AC and will start weaning trials when appropriate; Daily ABG, CXR, CBC and CMP; 4. Community-acquired pneumonia. Agree to continue broad spectrum antibiotics as prescribed. Dr. Engle on board. 5. Continue GI and DVT prophylaxis. 6. S/P cardiac arrest with reported asystole. Likely secondary to electrolyte and metabolic derangements. Now stable on AC. Case discussed with admitting MD and staff toxicologist and pulmonary TRACK LINER OPERATOR. Thank you for the courtesy of this consult. Dictated by PATRICIA Glynn for Jagdeep Lomax MD cc: PATRICIA Glynn MD [facility]
[2018-06-02 21:01] LABS: CALCIUM 8.8 mg/dL (8.8-10.2); MAGNESIUM 2.1 mg/dL (1.5-2.7); PHOSPHORUS 1.1 mg/dL (2.7-4.5); POTASSIUM 2.9 mmol/L (3.5-5.1)
--- NOTE | 2018-06-03 00:43 | NEPHROLOGY CONSULTATION ---
DATE: 06/02/2018 REASON FOR ADMISSION: Nausea and vomiting associated with fever. REASON FOR CONSULT: Acute kidney injury with hypokalemia. CONSULTING PHYSICIAN: Dr. Jones. HISTORY OF PRESENT ILLNESS: Ms Cdeeno is a 37-year-old white female who has a history of uncontrolled diabetes mellitus type 2. She presented to the emergency room with nausea and vomiting for 3 to 4 days. She also had complaints of abdominal pain, no diarrhea. Her temperature in the ER was 104.3. She was short of breath. In the ER it was found that her white count was 23,000. Her chemistry indicated that she was in diabetic ketoacidosis. Blood gas confirms severe metabolic acidosis consistent with her diabetic ketoacidosis. Chest x-ray did show left lower lobe pneumonia suspected to be aspiration pneumonia. Due to these findings, patient was admitted to the ICU for further workup and evaluation. The patient coded this a.m. respiratory arrest. She was given a fluid bolus resuscitation for possible sepsis. She is currently intubated. Blood pressure was low initially prior to her code now has returned to her normal baseline in the 120s over 60s. She is unresponsive. Her family had just left from her room when I had gotten there. She is not on any pressor support at this time. During this period of time she was started on normal saline protocol per DKA. She was given insulin per protocol. Her potassium yesterday on admission was 4.3, now down to 1.8 status post code. She is currently receiving potassium supplement IV. She has ordered potassium chloride liquid to be given per her NG tube after placement. She has received 2 amps of sodium bicarbonate and continues with her potassium supplement replacement IV. She has also been ordered on sodium phosphate for a phosphorus of 1. The patient is currently on Diprivan. Unable to get a review of systems except from her admission in the emergency room and H and P. It is noted that her creatinine was 1.2 on admission, now up to 1.4, hypotensive episode is over. PAST MEDICAL HISTORY: As mentioned diabetes mellitus type 2, poorly controlled. SURGICAL HISTORY: section x3. SOCIAL HISTORY: She is . She has 3 children, 2 children had just left the bedside 17- year-old daughter and a 15-year-old son. Her ex-spouse has brought these children with him to see their mother. Unable to determine whether she has alcohol, tobacco or independent drug use. HOME MEDICATIONS: Listed as metformin daily. ALLERGIES: Listed as penicillin, morphine and Bactrim. FAMILY HISTORY: Unobtainable. REVIEW OF SYSTEMS: Unobtainable. Most information obtained from chart. VITAL SIGNS: Temperature 100.7 degrees, blood pressure 129/66, heart rate 119, respirations are 29, she is currently on 100% FiO2. Last recorded saturation is 99%. LAB: Sodium 144, potassium 1.8, chloride 112, CO2 of 11, BUN 19, creatinine 1.3 , glucose 373, calcium is 8.6, phosphorus is 1. White count 18.8, hemoglobin 8.2, hematocrit 25.9 with a platelet count of 351,000. ABGs status post code pH 7.02, CO2 51, PO2 71, bicarb 11.7, lactate is now up to 4.5 from 1.3 from her admission. PHYSICAL EXAMINATION: This is a 37-year-old white female. She is currently resting quietly in bed. She is ventilator dependent. She has sedation in place.HEENT: Normocephalic, atraumatic. Conjunctiva is pale pink. She has sluggish pupils. Mucous membranes dry. Oral ET tube is in place. Neck: Supple, trachea midline. Unable to determine JVD due to dressing for ET tube. Cardiovascular: Regular rate and rhythm, she is tachycardic on the monitor. No appreciable murmur or gallop. Lungs: Clear to auscultation bilaterally. Equal excursion. Ventilatory support. Abdomen: Large, round, nontender, positive bowel sounds, hypoactive bowel sounds present. NG tube is currently being placed. Extremities: Have no edema. No clubbing or cyanosis. Neurological: As mentioned above. ASSESSMENT AND PLAN: 1. Acute kidney injury, multifactorial. The patient is in diabetic ketoacidosis. Creatinine is minimally changed to 1.3 from 1.2. Adequate urine out has been recorded of 2825. She has approximately 2 L of urine in her bag at this time. We will continue to monitor. 2. Electrolytes. Patient has a potassium of 1.8. She has received magnesium IV. She is currently receiving sodium phosphorus IV. She is receiving potassium both intravenous and p.o. per nasogastric, at this time we will order repeat labs at 1600. 3. Acidosis. The patient is in metabolic acidosis with diabetic ketoacidosis. She has received 2 amps of sodium bicarbonate. She is currently on ventilatory support. 4. Sepsis. This is more likely secondary to aspiration pneumonia. Dr. Engle has been consulted. She is to be started on cefepime. 5. Anemia. This is low but fairly stable. The iron studies have been ordered. 6. Status post cardiac arrest. Patient remains intubated. She has her own blood pressure without pressor support. Adequate urine output so far today. Will reevaluate patient's status in the a.m. Labs are currently ordered. Like to thank you for allowing us to follow with this patient. Dictated by PATRICIA Griffin for Alejandro Corona MD Face to face encounter, data reviewed, discussed with Bhavna Garcia on 06/02/18. I agree with the above assessment and plan of care. cc: PATRICIA Griffin MD [facility]
[2018-06-03 00:47] LABS: CALCIUM 8.6 mg/dL (8.8-10.2); CREATININE 2.7 mg/dL (0.5-0.9); MAGNESIUM 2.1 mg/dL (1.5-2.7); POTASSIUM 3.7 mmol/L (3.5-5.1)
[2018-06-03] MEDS: OFIRMEV 1000 MG/ISOTONIC SOLN 1,000 MG/100 ML BOTTLE IV PRN (01:13)
[2018-06-03] MEDS: DIPRIVAN 1% 1,000 MG/100 ML BOTTLE IV SCH ×11 (01:14→22:55)
--- NOTE | 2018-06-03 01:14 | GENERAL SURGERY CONSULTATION ---
DATE: 06/02/2018 HISTORY OF PRESENT ILLNESS: This is a 37-year-old female with type 1 diabetes. She has been treated for this. She has had a severe DKA exacerbation. She apparently was transferred for some pulmonary status from the floor of the unit and had a bradycardic code event earlier today. During this evaluation, she was noted to have a draining sinus from the right axilla. The details of this are unclear. Currently, she is intubated, nonresponsive, on vasopressors. MEDICAL HISTORY: Diabetes type 1, poorly controlled. SURGICAL HISTORY: C-sections. SOCIAL HISTORY: No tobacco. Occasional alcohol. Has 3 children. REVIEW OF SYSTEMS: Not obtainable. FAMILY HISTORY: Reviewed and noncontributory. PHYSICAL EXAMINATION: Temperature is 100.7 degrees, pulse has been in the 110s to 120s, systolic blood pressure currently low 100s, oxygen saturation low 90s. General: She is sedated. HEENT: There is an endotracheal tube. Cardiovascular: Sinus tachycardia. Pulmonary: Mechanically ventilated. Abdomen: Soft. Integument: Warm and dry. Lymphatic: I do not feel any cervical adenopathy. She has chronic scarring and a sinus in the right axilla, consistent with hidradenitis. I do not see any erythema or purulence. Peripheral vascular: She does have some lower extremity edema. Otherwise well perfused. LABORATORIES: White count is 18, hematocrit is 25. The pH is 7.02, CO2 of 51, O2 of 71. Creatinine is 1.3, potassium is low at 1.7, phosphorus is 1.0, magnesium is 2.0. ASSESSMENT AND PLAN: This is a very ill, 37-year-old female with diabetic ketoacidosis. She has changes consistent with hidradenitis of the right axilla. I would strongly advise against doing anything about this as it is not a source of infection currently, and we will defer antibiotics to her other systemic issues. cc: Kira De La Torre MD
[2018-06-03] MEDS: POTASSIUM CHLORIDE 20 MEQ/SWI 20 MEQ/100 ML IVPB IV PRN ×4 (01:23→21:25)
[2018-06-03] MEDS ORDERED: LEVOPHED 8 MG in D5 1/2 NS 250 ML IV SCH (01:30)
[2018-06-03 02:19] LABS: ALLEN TEST YES; BE -11.4 mmoll (-3.0-3.0); BLOOD TYPE ARTERIAL; METHB 1.4 % (0.0-1.5); O2(CT) 12.6 mL/dL (15.0-23.0); O2HB 96.2 % (95.0-99.0); PCO2(98.6) 34 mmHg (35-45); PO2(98.6) 102 mmHg (60-100); SAMPLE BLOOD; SAO2 99.8 % (95.0-100.0); SRATE 18 BPM; THB 9.2 g/dL (11.5-17.4); TVOL 500 mL; pH(98.6) 7.25 (7.35-7.45)
[2018-06-03 02:20] LABS: MODALITY VENTILATOR
[2018-06-03 02:39] LABS: HEMATOCRIT 24.6 % (37.0-47.0); HEMOGLOBIN 8.1 g/dL (12.0-16.0)
[2018-06-03] MEDS: PROTONIX IV SCH ×2 (03:52→15:10)
[2018-06-03] MEDS: SODIUM CHLORIDE 0.9% INJ SCH (03:53)
[2018-06-03 05:26] LABS: ALLEN TEST YES; BE -16.8 mmoll (-3.0-3.0); BLOOD TYPE ARTERIAL; HCO3-(ACT) 11.8 mmoll (20.0-26.0); METHB 1.3 % (0.0-1.5); O2(CT) 11.5 mL/dL (15.0-23.0); O2HB 96.5 % (95.0-99.0); PCO2(98.6) 32 mmHg (35-45); PO2(98.6) 117 mmHg (60-100); SAMPLE BLOOD; SAO2 99.5 % (95.0-100.0); SRATE 18 BPM; THB 8.3 g/dL (11.5-17.4); TVOL 500 mL
[2018-06-03 05:28] LABS: pH(98.6) 7.14 (7.35-7.45)
[2018-06-03 05:29] LABS: MODALITY VENTILATOR
[2018-06-03] MEDS ORDERED: SODIUM BICARBONATE 8.4% IV PUSH ONE ×2 (05:37→08:41)
[2018-06-03 05:48] LABS: EOS# 0.22 X1000 (0.0-0.7); HEMATOCRIT 25.8 % (37.0-47.0); HEMOGLOBIN 8.3 g/dL (12.0-16.0); LYMPH# 5.21 X1000 (1.2-3.4); LYMPH% 23.3 % (20.5-51.1); MCH 25.8 PG (27-31); MCHC 32.2 g/dL (33-37); MCV 80.1 FL (81-99); MONO% 9.4 % (1.7-9.3); MPV 9.9 FL (7.4-10.4); PLT 351 X1000 (130-400); RBC 3.22 XMIL (4.2-5.4)
[2018-06-03 06:49] LABS: ALB/GLOB RATIO 0.7; ALBUMIN 2.6 g/dL (3.5-5.0); CALCIUM 8.2 mg/dL (8.8-10.2); CREATININE 3.1 mg/dL (0.5-0.9); MAGNESIUM 2.2 mg/dL (1.5-2.7); PHOSPHORUS 3.5 mg/dL (2.7-4.5); POTASSIUM 2.6 mmol/L (3.5-5.1); TOTAL BILIRUBIN 0.25 mg/dL (0.20-1.00); TOTAL PROTEIN 6.2 g/dL (6.3-8.3)
[2018-06-03 07:25] LABS: LYMPHS 26 % (21-51); SEGS 68 % (42-75)
--- NOTE | 2018-06-03 07:32 | Diag Imaging Result Doc PS360 ---
EXAM: CHEST-1 VIEW INDICATION: SOB TECHNIQUE: One view COMPARISON: 06/02/2018 FINDINGS: Support tubes and lines are in stable positions. There are persistent bilateral diffuse infiltrates, worse on the left. The left infiltrate may be slightly less dense than previously. This may be due to differences in positioning and exposure, however. No new consolidation is identified. Cardiac silhouette is stable. IMPRESSION: Bilateral diffuse infiltrates with slight decrease in density on the left as compared to previous studies. Electronically signed by Cody Green 06/03/2018 7:29 AM
[2018-06-03] MEDS ORDERED: NS 1,000 ML IV ONE (07:33)
[2018-06-03] MEDS: 1/2 NS 1,000 ML IV SCH ×2 (07:48→18:35)
[2018-06-03] MEDS: D5 1/2 NS 1,000 ML IV SCH ×2 (07:49→18:34)
[2018-06-03] MEDS: MAXIPIME 2 GM in NS 100 ML IV SCH ×2 (07:51→19:17)
--- NOTE | 2018-06-03 08:14 | PROGRESS NOTE ---
DATE: 06/03/2018 SUBJECTIVE: The patient is on mechanical ventilation and sedated since yesterday. This patient is status cardiac arrest, with pain around 5 minutes during CPR on this patient. She is not on hypothermia protocol because of her bacteremia. She is in septic shock. She is on pressors. She is still on the insulin drip. She has acute kidney injury. She seems to be remarkably sick. OBJECTIVE: Vital Signs: Temperature 98, but as per the nurse, she had a high-grade temperature at 106 degrees, and now is 98, pulse 98, respiratory rate 30, blood pressure 132/73, oxygen saturation 100% on mechanical ventilation. HEENT: Head normocephalic. No trauma. PERRLA. Neck: Supple. No JVD. No masses. Central trachea. Chest: Coarse breath sounds bilaterally with decreased breath sounds at the bases. Some crackles, mostly on the left side. Abdomen: Soft, nontender, nondistended. No hepatosplenomegaly. Extremities: No edema. No clubbing. No cyanosis. Neurological: This patient is on mechanical ventilation and sedated. LABORATORY DATA: WBC 22.4, hemoglobin 8.3, hematocrit 25.8, platelets 351,000. Sodium 144, potassium 2.6, chloride 109, bicarbonate 10, BUN 37, creatinine 3.1, glucose 283, calcium 8.2. AST 93, ALT 60, alkaline phosphatase 145, albumin 2.6. ASSESSMENT AND PLAN: 1. Septic shock. This patient has been placed on pressors. She has bilateral pneumonia with a positive blood culture that showed gram-negative rods. Will continue with antibiotics, but I will adjust the dose because of her kidney injury. We will continue with intravenous fluids. 2. Status post cardiac arrest. Yesterday, this patient had a cardiac arrest, and she lasted around 5 minutes during the code. We regained spontaneous circulation, and since then, she has been on mechanical ventilation. She is requiring pressors as well. We did not start this patient on the hypothermia protocol because of her septicemia and septic shock. 3. Bilateral pneumonia, likely secondary to gram-negative infection. She has been placed on antibiotics. Infectious Disease Department on board. 4. Right axilla hidradenitis. Will monitor for now. 5. Acute hypoxemic respiratory failure. She has dense infiltrates bilaterally, mostly on the left side. She was placed on the bilevel positive airway pressure machine, but after the code, she has been placed on mechanical ventilation. Pulmonary Department following this patient. 6. Diabetic ketoacidosis. Will continue following the protocol. 7. Acute kidney injury. BUN and creatinine are trending up, and the urine output is going down. Nephrology Department has been consulted, and they already evaluated this patient. 8. Elevated liver function tests since admission, probably secondary to dehydration, and now shock liver. AST increased a little bit compared with admission, ALT decreased, and alkaline phosphatase is about the same. For now, I just will continue to monitor. 9. Hypophosphatemia, resolved. 10. Hypokalemia. We will replace. Will follow the diabetic ketoacidosis protocol. 11. Medical noncompliance. This patient's hemoglobin A1c is 13. It looks like she is not taking care of her medications at home. 12. Bacteremia secondary to gram-negative rods, likely the source of infection, or the lungs/pneumonia. 13. Anemia with borderline MCV 80.1. For now, will monitor and we will transfuse as needed. CRITICAL CARE TIME: 40 minutes. cc: Ivan Lopez MD
[2018-06-03 08:30] LABS: ALLEN TEST YES; BE -15.3 mmoll (-3.0-3.0); BLOOD TYPE ARTERIAL; METHB 1.4 % (0.0-1.5); O2(CT) 14.5 mL/dL (15.0-23.0); O2HB 95.5 % (95.0-99.0); PCO2(98.6) 32 mmHg (35-45); PO2(98.6) 90 mmHg (60-100); SAMPLE BLOOD; SAO2 98.8 % (95.0-100.0); SRATE 18 BPM; THB 10.7 g/dL (11.5-17.4); TVOL 500 mL
[2018-06-03 08:34] LABS: MODALITY VENTILATOR; pH(98.6) 7.18 (7.35-7.45)
[2018-06-03] MEDS ORDERED: VANCOMYCIN 1 GM/NS 1 GM/250 ML IVPB IV ONE (08:57)
[2018-06-03] MEDS ORDERED: VANCOMYCIN IV PER PHARMACY MISC SCH (09:00)
--- NOTE | 2018-06-03 09:36 | INFECTIOUS DISEASE PROGRESS NO ---
DATE: 06/03/2018 PRESENT ILLNESS: The patient has a bilateral pneumonia and a gram-negative gerry bacteremia. I believe that the patient's bacteremia originated from the patient's pneumonia. MEDICATIONS: Currently, the patient is on cefepime. OBJECTIVE: Vital Signs: Temperature is 98, pulse 98, respirations 30, blood pressure 132/73. General: This is an obese, young female. She is intubated and sedated. Neck: No meningismus. Lungs: Clear to auscultation. Cardiovascular: Heart rate is regular. Abdomen: Soft and nontender. Integument: The patient's right axilla color is fading, even more than it did yesterday. There is a small little fistulous area, but it is not draining anything at this time. Neurologic: Patient is obtunded. There is no tremor. LAB AND X-RAY: The patient's CBC shows a white count of 22,400, hemoglobin 8.1, and platelet count 351,000. Blood gases show a pH of 7.14, pO2 of 117 and a pCO2 of 32. The creatinine is 3.1. The GFR is 17. The patient's AST is 93. The patient's immunoglobulin levels are normal. The patient's blood is growing a gram-negative gerry. Chest x-ray shows improvement in the patient's bilateral infiltrates. ASSESSMENT AND PLAN: The patient has a gram-negative gerry bacteremia originated from the patient's pneumonia. My plan is to continue cefepime pending final results of the culture. COMORBIDITIES: The patient is diabetic and apparently is poorly controlled diabetic. She also is morbidly obese. cc: Juan Engle MD
[2018-06-03 09:45] LABS: CALCIUM 7.5 mg/dL (8.8-10.2); CREATININE 3.2 mg/dL (0.5-0.9); MAGNESIUM 2.1 mg/dL (1.5-2.7); PHOSPHORUS 3.4 mg/dL (2.7-4.5); POTASSIUM 2.9 mmol/L (3.5-5.1)
[2018-06-03] MEDS ORDERED: VANCOMYCIN 2,000 MG in NS 500 ML IV ONE (10:00)
[2018-06-03 13:16] LABS: CALCIUM 7.4 mg/dL (8.8-10.2); CREATININE 3.2 mg/dL (0.5-0.9); PHOSPHORUS 3.2 mg/dL (2.7-4.5); POTASSIUM 2.7 mmol/L (3.5-5.1)
[2018-06-03 13:24] LABS: ALLEN TEST YES; BE -14.2 mmoll (-3.0-3.0); BLOOD TYPE ARTERIAL; HCO3-(ACT) 13.9 mmoll (20.0-26.0); METHB 1.6 % (0.0-1.5); O2(CT) 9.6 mL/dL (15.0-23.0); O2HB 95.6 % (95.0-99.0); PCO2(98.6) 29 mmHg (35-45); PO2(98.6) 90 mmHg (60-100); SAMPLE BLOOD; SRATE 18 BPM; TVOL 500 mL; pH(98.6) 7.23 (7.35-7.45)
[2018-06-03 13:26] LABS: MODALITY VENTILATOR
[2018-06-03] MEDS: POTASSIUM CHLORIDE 20 MEQ/SWI 20 MEQ/100 ML IVPB IV SCH ×2 (13:39→15:09)
[2018-06-03 16:48] LABS: CALCIUM 7.3 mg/dL (8.8-10.2); CREATININE 3.4 mg/dL (0.5-0.9); POTASSIUM 3.1 mmol/L (3.5-5.1)
[2018-06-03] MEDS ORDERED: POTASSIUM CHLORIDE 20% LIQUID PO ONE (17:24)
[2018-06-03 17:28] LABS: ALLEN TEST YES; BE -14.2 mmoll (-3.0-3.0); BLOOD TYPE ARTERIAL; HCO3-(ACT) 13.9 mmoll (20.0-26.0); METHB 2.1 % (0.0-1.5); O2(CT) 11.7 mL/dL (15.0-23.0); O2HB 96.3 % (95.0-99.0); PCO2(98.6) 31 mmHg (35-45); PO2(98.6) 265 mmHg (60-100); SAMPLE BLOOD; SAO2 100.3 % (95.0-100.0); SRATE 18 BPM; THB 8.1 g/dL (11.5-17.4); TVOL 500 mL; pH(98.6) 7.21 (7.35-7.45)
[2018-06-03 17:29] LABS: MODALITY VENTILATOR
--- NOTE | 2018-06-03 19:54 | NEPHROLOGY PROGRESS NOTE ---
DATE: 06/03/2018 SUBJECTIVE: Unchanged. OBJECTIVE: Vital Signs: Blood pressure 154/66, heart rate 102, respirations, 35 afebrile. Intake 2.4 liters and output 2.4 liters. General: On physical exam, she is unresponsive on the ventilator, sedated. Skin: Warm and dry. HEENT and Neck: Conjunctivae are pink. The neck veins are not distended. Lungs: Equal. No crackles. Heart: Regular but tachycardic. Abdomen: Soft and nontender. Diminished bowel sounds. Extremities: Have no edema, clubbing, or cyanosis. IMPRESSION AND PLAN: Acute kidney injury secondary to cardiac arrest and shock. Her creatinine is rising daily, but she does not meet criteria for dialysis. She does have worsening anion gap acidosis that is related to diabetic ketoacidosis, and I have discussed this directly with Dr. Jones, who will manage it. She also still has hypokalemia, which is being managed by protocol. She has had intravenous sodium phosphate, as well as potassium chloride. Volume status is acceptable. No changes. cc: Alejandro Corona MD
[2018-06-03 21:13] LABS: CALCIUM 7.4 mg/dL (8.8-10.2); CREATININE 3.7 mg/dL (0.5-0.9); MAGNESIUM 1.9 mg/dL (1.5-2.7); PHOSPHORUS 3.1 mg/dL (2.7-4.5); POTASSIUM 3.5 mmol/L (3.5-5.1)
[2018-06-03 21:45] LABS: ALLEN TEST YES; BE -14.1 mmoll (-3.0-3.0); BLOOD TYPE ARTERIAL; HCO3-(ACT) 13.9 mmoll (20.0-26.0); METHB 1.5 % (0.0-1.5); MODALITY VENTILATOR; O2(CT) 9.5 mL/dL (15.0-23.0); PCO2(98.6) 27 mmHg (35-45); PO2(98.6) 73 mmHg (60-100); SAMPLE BLOOD; SAO2 97.5 % (95.0-100.0); SRATE 18 BPM; THB 7.1 g/dL (11.5-17.4); TVOL 500 mL; pH(98.6) 7.25 (7.35-7.45)
[2018-06-04] MEDS: D5 1/2 NS 1,000 ML IV SCH ×4 (00:05→23:33)
[2018-06-04] MEDS: DIPRIVAN 1% 1,000 MG/100 ML BOTTLE IV SCH ×13 (00:06→23:19)
[2018-06-04] MEDS: 1/2 NS 1,000 ML IV SCH ×4 (00:06→23:21)
[2018-06-04 01:32] LABS: ALLEN TEST YES; BE -15.2 mmoll (-3.0-3.0); BLOOD TYPE ARTERIAL; HCO3-(ACT) 13.1 mmoll (20.0-26.0); METHB 1.1 % (0.0-1.5); MODALITY VENTILATOR; O2(CT) 9.7 mL/dL (15.0-23.0); O2HB 94.9 % (95.0-99.0); PCO2(98.6) 26 mmHg (35-45); PO2(98.6) 75 mmHg (60-100); SAMPLE BLOOD; SRATE 18 BPM; THB 7.2 g/dL (11.5-17.4); TVOL 500 mL; pH(98.6) 7.23 (7.35-7.45)
[2018-06-04 01:53] LABS: CREATININE 3.8 mg/dL (0.5-0.9); MAGNESIUM 1.9 mg/dL (1.5-2.7); PHOSPHORUS 3.3 mg/dL (2.7-4.5); POTASSIUM 3.6 mmol/L (3.5-5.1)
[2018-06-04] MEDS: POTASSIUM CHLORIDE 20 MEQ/SWI 20 MEQ/100 ML IVPB IV PRN ×4 (01:59→15:38)
[2018-06-04] MEDS: SODIUM CHLORIDE 0.9% INJ SCH ×2 (02:04→13:36)
[2018-06-04] MEDS: PROTONIX IV SCH ×2 (02:04→13:36)
[2018-06-04] MEDS ORDERED: CALCIUM GLUCONATE 1 GM in NS 50 ML IV ONE (02:22)
--- NOTE | 2018-06-04 05:00 | GENERAL SURGERY PROGRESS NOTE ---
DATE: 06/03/2018 SUBJECTIVE: Remains critically ill. She is intubated. She is being treated for DKA. No significant drainage or redness from her axillas. I do not see any fevers documented since midnight. Her heart rate is down trending. Blood pressure remains in the low 100s systolic. OBJECTIVE: General: She is sedated. She is intubated. Cardiovascular: Sinus tachycardia intermittently. Pulmonary: No increased work of breathing. Bilateral axillas showed chronic scarring and sizes consistent with hidradenitis, but no fluctuance or erythema. Abdomen: Soft. LABORATORY DATA: White count is up to 22 this morning, hematocrit 24. PH is up to 7.23. Creatinine is 3.4. This is up from her baseline glucose in the low 200s. ASSESSMENT AND PLAN: This is a 37-year-old female with diabetic ketoacidosis, a respiratory code event, and bilateral hidradenitis. I do not see any signs of infection. I suspect that this is an incidental finding. We will continue local wound care. Keep the areas clean and dry. We will follow along, defer antibiotics to her other systemic issues. cc: Kira De La Torre MD
[2018-06-04 05:20] LABS: ALLEN TEST YES; BE -16.1 mmoll (-3.0-3.0); BLOOD TYPE ARTERIAL; HCO3-(ACT) 12.3 mmoll (20.0-26.0); METHB 1.6 % (0.0-1.5); O2(CT) 9.3 mL/dL (15.0-23.0); O2HB 92.5 % (95.0-99.0); PCO2(98.6) 28 mmHg (35-45); PO2(98.6) 68 mmHg (60-100); SAMPLE BLOOD; SAO2 96.4 % (95.0-100.0); SRATE 30 BPM; THB 7.1 g/dL (11.5-17.4); TVOL 500 mL
[2018-06-04 05:22] LABS: MODALITY VENTILATOR; pH(98.6) 7.19 (7.35-7.45)
--- NOTE | 2018-06-04 05:40 | CONSULTATION ---
DATE OF CONSULTATION: 06/03/2018 INDICATION FOR CONSULTATION: 1. Nausea with vomiting. 2. Hematemesis. HISTORY OF PRESENT ILLNESS: The patient is a 37-year-old white female with a history of diabetes mellitus and GERD, who presented to the emergency room on 06/01/2018 with 4 days of nausea with vomiting and fever to 104.3. [place] [address] in the emergency room. She was also in diabetic ketoacidosis. It is thought secondary to the left lower lobe pneumonia that was found on her chest x-ray. Her hospital course has been remarkable for acute respiratory failure requiring intubation after resuscitation and CAT call. She was also noted to have an elevated liver function test and anemia. Because of the hematemesis of coffee- ground colored material, we are asked to participate in her care. PAST MEDICAL HISTORY: 1. Diabetes mellitus type 2. 2. Bipolar disorder with psychotic features. 3. Left lower lobe pneumonia. PAST SURGICAL HISTORY: x3. SOCIAL HISTORY: Negative for alcohol, tobacco or recreational drug use. She is with 3 children. 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 REVIEW OF SYSTEMS: Unobtainable. MEDICATION ALLERGIES: 1. Penicillin. 2. Morphine. 3. Sulfamethoxazole. 4. Trimethoprim. HOME MEDICATIONS: 1. Howells carbonate. 2. Zyprexa. 3. Topamax. 4. Desyrel. 5. According to the computer, the patient is also supposed to be taking metformin once daily, but is not documented in EMR. PHYSICAL EXAMINATION: General: On exam, she is in no acute distress. She has a nasogastric tube in her left naris and is orally intubated. She is sedated with propofol sedation. Vital Signs: Her vital signs are remarkable for blood pressure of 132/73, pulse 98, respirations 30, and temperature of 98 degrees. She has an oxygen saturation on 40% FiO2. HEENT: Negative for jaundice. Her oropharyngeal mucosal membranes are dry. Pulmonary: Lungs are clear to auscultation with normal respiratory effort. Cardiovascular: Reveals a resting tachycardia with irregular rhythm. Abdomen: Soft and nondistended. Extremities: Negative for cyanosis, clubbing, or edema. OBJECTIVE DATA: Reveals a hemoglobin of 8.1 with hematocrit of 24.6 and a white count of 22.40. She has 351,000 platelets. Her blood gas reveals a pH of 7.21 with a pCO2 of 31, and PO2 of 265. Her arterial lactate is 1.10. Sodium is 144, potassium 3.5, chloride 111, CO2 12, BUN 42, creatinine 3.7, with a glucose of 215. Her calcium is 7.4. Total bilirubin 0.25, AST 93, ALT 60, alkaline phosphatase 145, phosphorus 3.1, magnesium 1.9, total bilirubin 6.2 and albumin 2.6. IMPRESSION: 1. Hematemesis. 2. Elevated liver function tests. RECOMMENDATIONS: 1. Given that the patient is significantly septic secondary to her pneumonia and recent cardiac arrest followed by successful resuscitation, I recommend conservative management. Her hemoglobin has been stable in the last 24 hours. There does not appear to be active bleeding at this time. In the event that she develops active bleeding, it would be reasonable to pursue endoscopic intervention at that time. 2. The patient has elevated liver function tests, which were likely due to shock liver secondary to her cardiac arrest and subsequent CPR with successful resuscitation. I recommend clinical monitoring. I anticipate that with hydration and fluids, the patient's liver function tests will improve with time and treatment of her underlying sepsis. She has a hepatitis panel which is pending. We await those results. 3. The patient is anemic. I recommend again careful clinical monitoring. If her hemoglobin drops substantially, it is reasonable to pursue endoscopic evaluation at that time. 4. Additional recommendations to follow based on her clinical course. cc: MD Ivan Bro MD
[2018-06-04 06:20] LABS: BASO# 0.17 X1000 (0.0-0.2); EOS# 0.07 X1000 (0.0-0.7); EOS% 0.4 % (0.0-10.0); HEMATOCRIT 23.6 % (37.0-47.0); HEMOGLOBIN 7.9 g/dL (12.0-16.0); IMM GRAN% 4.3 % (0.0-0.5); LYMPH# 3.21 X1000 (1.2-3.4); LYMPH% 19.6 % (20.5-51.1); MCH 26.9 PG (27-31); MCHC 33.5 g/dL (33-37); MCV 80.3 FL (81-99); MONO# 0.97 X1000 (0.11-0.59); MONO% 5.9 % (1.7-9.3); NEUT# 11.24 X1000 (1.4-6.5); NEUT% 68.8 % (42.2-75.2); PLT 288 X1000 (130-400); RBC 2.94 XMIL (4.2-5.4); RDW 15.8 % (11.5-14.5); WBC 16.36 X1000 (4.8-10.8)
[2018-06-04 06:38] LABS: BANDS 2 % (0-1); LYMPHS 8 % (21-51); SEGS 72 % (42-75)
[2018-06-04 06:42] LABS: CALCIUM 7.4 mg/dL (8.8-10.2); CREATININE 4.1 mg/dL (0.5-0.9); MAGNESIUM 1.8 mg/dL (1.5-2.7); PHOSPHORUS 3.4 mg/dL (2.7-4.5); POTASSIUM 3.6 mmol/L (3.5-5.1)
[2018-06-04 07:03] LABS: ALB/GLOB RATIO 0.6; ALBUMIN 2.4 g/dL (3.5-5.0); CALCIUM 7.7 mg/dL (8.8-10.2); CREATININE 3.7 mg/dL (0.5-0.9); POTASSIUM 3.7 mmol/L (3.5-5.1); TOTAL BILIRUBIN 0.21 mg/dL (0.20-1.00); TOTAL PROTEIN 6.3 g/dL (6.3-8.3)
[2018-06-04] MEDS: HUMULIN R 100 UNIT in NS 100 ML IV SCH (07:04)
--- NOTE | 2018-06-04 07:33 | Diag Imaging Result Doc PS360 ---
EXAM: CHEST-1 VIEW 06/04/2018 HISTORY: SOB TECHNIQUE: AP portable at 0500 COMMENT: There is patchy alveolar opacity bilaterally particularly in the left lung. The endotracheal tube remains with its tip at the thoracic inlet and the NG tube passes below the diaphragm. Compared to 06/03/2018 there has been or expansion of the left lung and the hemidiaphragm is better defined. IMPRESSION: Improved pulmonary edema versus pneumonia. Electronically signed by Michel Vogel 06/04/2018 7:30 AM
[2018-06-04] MEDS: MAXIPIME 2 GM in NS 100 ML IV SCH ×2 (07:42→20:21)
[2018-06-04] MEDS ORDERED: SODIUM BICARBONATE 8.4% IV PUSH ONE (07:50)
[2018-06-04 08:52] LABS: CALCIUM 7.3 mg/dL (8.8-10.2); MAGNESIUM 1.8 mg/dL (1.5-2.7); PHOSPHORUS 3.5 mg/dL (2.7-4.5); POTASSIUM 3.7 mmol/L (3.5-5.1)
--- NOTE | 2018-06-04 08:52 | PROGRESS NOTE ---
DATE: 06/04/2018 SUBJECTIVE: Patient is still intubated and sedated. Her pH was gradually getting better, but dropped again today in the morning. She is still getting the same treatment. Nephrology Department on board. She received fluid yesterday and the urine output is minimal. Probably this patient will need dialysis at some point if she does not recover. OBJECTIVE: Vital Signs: Temperature 97.7 degrees, pulse 96, respiratory rate 28, blood pressure 131/61, oxygen saturation 94 on mechanical ventilation. HEENT: Head normocephalic. No trauma. PERRLA. Neck: Supple. No JVD. No masses. Central trachea. Chest: Coarse breath sounds bilaterally. Decreased breath sounds at the bases with some rales. Abdomen: Soft, protuberant, and nondistended. Positive bowel sounds. Extremities: No edema. No clubbing. No cyanosis. Neurological: The patient is on mechanical ventilation and sedated. LABORATORY: WBC 16.3, hemoglobin 7.9, hematocrit 23.6, platelets 298,000. pH 7.19, bicarb 10, sodium 140, potassium 3.7, chloride 110, bicarbonate 10, BUN 46, creatinine 3.7 , glucose 252. Calcium 7.7, phosphorus 3.4, magnesium 1.8. ASSESSMENT AND PLAN: 1. Septic shock. For now, we will continue with the same management. She has bilateral pneumonia with positive blood culture that showed gram-negative rods, Klebsiella pneumonia. Infectious disease department following this patient closely. We will continue with antibiotics as well. 2. Status post cardiac arrest, 2 days ago. This patient had a cardiac arrest, and we resuscitated this patient for about 5 minutes. She regained spontaneous circulation, and since then, she has been on mechanical ventilation. She has been requiring pressors. 3. Hypothermia protocol has not being started because the patient is bacteremic and has septic shock. 4. Bacteremia. We have a positive culture that showed Klebsiella pneumoniae. Infectious Disease Department on board. 5. Bilateral pneumonia likely secondary to gram-negative infection. She has been placed on antibiotics. 6. Right axilla hidradenitis. Will monitor for now. 7. Acute hypoxemic respiratory failure. She has dense infiltrates bilaterally, mostly on the left side. At the beginning, she was placed on the BiPAP machine, but after the code, she was placed on mechanical ventilation. Pulmonary on board. 8. Diabetic ketoacidosis. We will continue following the protocol. The pH is still low even though was getting better during the day. 9. Acute kidney injury. She has a positive balance today of 4.5 L. The urine is really low. Nephrology Department on board, probably. If she does not recover, she will be dialyzed. 10. Elevated liver function tests. Those are getting better slowly. Will continue with the same management. 11. Hypophosphatemia, resolved. 12. Hypokalemia. Will continue replacing the potassium. 13. Medical noncompliance. Apparently, this patient has not been taking care of her blood sugar at home. Her hemoglobin A1c is 13. 14. Anemia with borderline MCV at 80.1. Iron is low, but ferritin is 225. For now, we will continue to monitor, and we will transfuse as needed. CRITICAL CARE TIME: 40 minutes. cc: Ivan Lopez MD MTDD
[2018-06-04 10:17] LABS: ALLEN TEST YES; BE -14.9 mmoll (-3.0-3.0); BLOOD TYPE ARTERIAL; HCO3-(ACT) 13.3 mmoll (20.0-26.0); METHB 1.4 % (0.0-1.5); O2(CT) 9.5 mL/dL (15.0-23.0); O2HB 92.1 % (95.0-99.0); PCO2(98.6) 28 mmHg (35-45); PO2(98.6) 65 mmHg (60-100); SAMPLE BLOOD; SAO2 95.4 % (95.0-100.0); SRATE 18 BPM; THB 7.3 g/dL (11.5-17.4); TVOL 500 mL; pH(98.6) 7.22 (7.35-7.45)
[2018-06-04 10:20] LABS: MODALITY VENTILATOR
[2018-06-04 13:13] LABS: ALLEN TEST YES; BE -14.3 mmoll (-3.0-3.0); BLOOD TYPE ARTERIAL; HCO3-(ACT) 13.8 mmoll (20.0-26.0); METHB 2.4 % (0.0-1.5); O2(CT) 6.1 mL/dL (15.0-23.0); O2HB 94.6 % (95.0-99.0); PCO2(98.6) 23 mmHg (35-45); PO2(98.6) 89 mmHg (60-100); SAMPLE BLOOD; SAO2 98.9 % (95.0-100.0); SRATE 18 BPM; THB 4.4 g/dL (11.5-17.4); TVOL 500 mL; pH(98.6) 7.29 (7.35-7.45)
[2018-06-04 13:14] LABS: MODALITY VENTILATOR
[2018-06-04 13:59] LABS: CALCIUM 7.9 mg/dL (8.8-10.2); CREATININE 3.9 mg/dL (0.5-0.9); MAGNESIUM 1.9 mg/dL (1.5-2.7); PHOSPHORUS 3.6 mg/dL (2.7-4.5); POTASSIUM 4.1 mmol/L (3.5-5.1)
--- NOTE | 2018-06-04 14:11 | NEPHROLOGY PROGRESS NOTE ---
DATE: 06/04/2018 TIME SEEN: 0735 hours. SUBJECTIVE: Ms. Cedeno is resting quietly in bed. She is ventilator dependent. Head of the bed is slightly elevated. She appears chronically ill. No distress. OBJECTIVE: Vital Signs: Temperature 97.7 degrees, blood pressure 150/67, heart rate 94 respirations 30. She is on 30% FiO2. Her last recorded saturation is 93%. She has had 6475 in; she has had 865 mL out per Morse catheter. LABS: Sodium 140, potassium 3.7, chloride 110, CO2 10. BUN 46, creatinine 3.7 , glucose 252, anion gap is 20, calcium 7.4, albumin is 2.4. White count 16.36, hemoglobin 7.9 , hematocrit 23.6 with a platelet count of 288. The patient's acetone level this a.m. is negative after being large yesterday. ABGs: A pH of 7.19, CO2 28, PO2 68, bicarbonate 12.3 on 30%. PHYSICAL EXAM: General: This is a 37-year-old white female resting quietly in bed ventilator dependent. Skin: Warm and dry. HEENT: Normocephalic, atraumatic. Conjunctiva is pale. She has ISIAH. Mucous membranes are dry. Neck: Supple. Trachea midline. Unable to determine JVD due to body habitus. Cardiovascular: She is regular rate and rhythm, but tachycardic. No murmur or gallop appreciated. Lungs: Diminished breath sounds bilaterally. Equal excursion. Extremities: No edema, no clubbing or cyanosis. Neurological: Patient again is sedated on ventilatory support. ASSESSMENT AND PLAN: 1. Acute kidney injury secondary to cardiac arrest in shock. Her creatinine has been slowly rising. It is at 4.3 today. BUN is fairly stable. She has good urine output. There is no indications for intervention for dialysis today. 2. Electrolytes. This is stable. 3. Acid-base balance. Patient has continued anion gap acidosis related to diabetic ketoacidosis and metabolic acidosis. The patient remains in diabetic ketoacidosis. We will continue to manage her per protocol per primary care. 4. Anemia. This remains low. Hemoglobin is 7.9. This has dropped slightly from yesterday. We will continue to monitor. Defer to the primary care team for intervention. 5. Cardiogenic shock with sepsis. The patient has pneumonia. She is on renal- dosed antibiotics. I would like to thank you for allowing us to follow with this patient. Dictated by PATRICIA Griffin for Alejandro Corona MD Face to face encounter, data reviewed, discussed with Kendra Garcia on 06/04/18. I agree with the above assessment and plan of care. cc: PATRICIA Griffin MD [facility]
[2018-06-04 18:07] LABS: CALCIUM 7.7 mg/dL (8.8-10.2); CREATININE 3.9 mg/dL (0.5-0.9); MAGNESIUM 1.9 mg/dL (1.5-2.7); PHOSPHORUS 3.7 mg/dL (2.7-4.5)
[2018-06-04 20:31] LABS: CALCIUM 7.4 mg/dL (8.8-10.2); CREATININE 4.2 mg/dL (0.5-0.9); MAGNESIUM 1.8 mg/dL (1.5-2.7); PHOSPHORUS 4.2 mg/dL (2.7-4.5); POTASSIUM 4.1 mmol/L (3.5-5.1)
[2018-06-04 21:31] LABS: ALLEN TEST YES; BE -16.6 mmoll (-3.0-3.0); BLOOD TYPE ARTERIAL; METHB 1.7 % (0.0-1.5); O2(CT) 9.8 mL/dL (15.0-23.0); O2HB 94.2 % (95.0-99.0); PCO2(98.6) 31 mmHg (35-45); PO2(98.6) 80 mmHg (60-100); SAMPLE BLOOD; SAO2 97.6 % (95.0-100.0); SRATE 18 BPM; THB 7.3 g/dL (11.5-17.4); TVOL 500 mL
[2018-06-04 21:32] LABS: MODALITY VENTILATOR
--- NOTE | 2018-06-04 21:32 | PROGRESS NOTE ---
DATE: 06/04/2018 DATE OF ROUNDS: 06/04/2018. SUBJECTIVE: Overnight, the patient's hematemesis has resolved with a Protonix drip. She remains intubated and sedated. PHYSICAL EXAMINATION: Vital Signs: Her blood pressure is 150/70, pulse 97, respiration 30 and temp of 97.0. Pulmonary: Her breath sounds are coarse. Cardiovascular: She has a resting tachycardia, with a regular rhythm. Abdomen: Soft, nondistended. Has normoactive bowel sounds. There is no rebound or guarding. OBJECTIVE DATA: Reveals a hemoglobin of 7.9, with hematocrit of 23.6 and a white count of 16.36. She has 288,000 platelets. Her arterial lactate is 1.20. Her sodium is 140, potassium 3.7, chloride 110, CO2 10, BUN 46, creatinine 3.7, with a glucose of 252. Calcium is 7.7, phosphorus 3.7, magnesium 1.9, total bilirubin 0.21, AST 57, ALT 51, alkaline phosphatase 129, total protein 6.3, albumin 2.4. RECOMMENDATION: 1. The patient's hematemesis is resolved with a Protonix drip. I would continue the Protonix drip for 72 hours and then transition to Protonix 40 mg IV q.12 hours. 2. As long she remains hemodynamically stable from a GI perspective, I recommend that we schedule an elective procedure when the patient is clinically improved and no longer intubated. 3. If she has active GI bleeding, we can perform an EGD on a more urgent basis. 4. Continue to monitor serial hemoglobin and hematocrit and transfuse as indicated. cc: MD Ivan Bro MD
[2018-06-04 21:33] LABS: pH(98.6) 7.15 (7.35-7.45)
[2018-06-04] MEDS ORDERED: SODIUM BICARBONATE 8.4% IV ONE (22:52)
[2018-06-04] MEDS: SODIUM BICARBONATE 8.4% 150 MEQ in D5W 1,000 ML IV SCH (23:33)
--- NOTE | 2018-06-05 01:04 | INFECTIOUS DISEASE PROGRESS NO ---
DATE: 06/04/2018 PRESENT ILLNESS: Ms. Cedeno has a bilateral pneumonia, and a Klebsiella pneumoniae bacteremia. She is in septic shock, and is status post cardiac arrest two days ago. MEDICATIONS: Today is day 1 of cefepime 2 g IV every 12 hours. PHYSICAL EXAMINATION: Vital Signs: Temperature is 97 degrees, pulse rate 96, respiratory rate 30, blood pressure 153/68. O2 saturation is 96% on a 40% FiO2 on the mechanical ventilator. General: This is a critically ill-appearing, obese young female. She is lying in the bed, sedated on the mechanical ventilator. HEENT: Atraumatic, normocephalic. Oral mucous membrane are pink and moist. Conjunctivae are pale. Oral ET tube is in place, as well as an NG tube to low intermittent wall suction. Abdomen: Soft, obese. Bowel sounds are hypoactive. Respiratory: Lung sounds are generally clear and diminished. She is tachypneic, breathing above the set rate on the ventilator. Cardiovascular: Heart rate and rhythm are regular. Normal sinus rhythm in the 90s on the monitor. Neurological: The patient is sedated on ventilatory support. On sedation vacation today, the nurse states she coughs frequently, and is unable to follow commands. Integumentary: There is a small pink lesion about the size of a Q- tip to the right axilla. The site has a small amount of mild pink drainage. LABORATORY AND X-RAY: Today, her white count is 16.36, hemoglobin 7.9, platelet count 288,000. This morning on a 40% FiO2 on the mechanical ventilator, her pH was 7.29, pCO2 23, PO2 89, HCO3 13.8. Her creatinine is 3.9, GFR 13. AST 57, ALT 51, alkaline phosphatase 129. Her urine culture has shown no growth on the final report. The right axillary lesion has shown no growth on the preliminary report. The preliminary sputum culture is showing normal emmanuelle. Her blood cultures have grown a Klebsiella pneumoniae. Chest x-ray today shows improved pulmonary edema versus pneumonia. ASSESSMENT AND PLAN: Ms. Cedeno has bilateral pneumonia, as well as a Klebsiella bacteremia. She has been receiving cefepime for the last 48 hours. We will recheck her blood cultures in the morning to try to get a sterile set. For now, we will continue the cefepime as ordered for the Klebsiella bacteremia and pneumonia. These plans have been discussed with and recommended by Dr. Engle. COMORBIDITIES: She is status post cardiac arrest, with diabetes mellitus, morbid obesity, and acute kidney injury. Dictated by PATRICIA Ward for Juan Engle MD This chart was documented by, PATRICIA Ward and accurately reflects the services performed, treatment plan and medical decisions as attested by the providers signature Juan Engle MD. cc: Juan Engle MD [facility]
[2018-06-05] MEDS: DIPRIVAN 1% 1,000 MG/100 ML BOTTLE IV SCH ×11 (01:15→23:34)
[2018-06-05 01:17] LABS: ALLEN TEST YES; BE -15.3 mmoll (-3.0-3.0); BLOOD TYPE ARTERIAL; METHB 1.3 % (0.0-1.5); O2(CT) 9.6 mL/dL (15.0-23.0); O2HB 93.5 % (95.0-99.0); PCO2(98.6) 34 mmHg (35-45); PO2(98.6) 72 mmHg (60-100); SAMPLE BLOOD; SAO2 96.8 % (95.0-100.0); SRATE 18 BPM; THB 7.2 g/dL (11.5-17.4); TVOL 500 mL
[2018-06-05 01:18] LABS: MODALITY VENTILATOR; pH(98.6) 7.16 (7.35-7.45)
[2018-06-05 01:39] LABS: CALCIUM 7.5 mg/dL (8.8-10.2); CREATININE 4.4 mg/dL (0.5-0.9); MAGNESIUM 1.8 mg/dL (1.5-2.7); PHOSPHORUS 4.9 mg/dL (2.7-4.5); POTASSIUM 3.9 mmol/L (3.5-5.1)
[2018-06-05] MEDS: PROTONIX IV SCH ×2 (03:17→13:21)
[2018-06-05 05:12] LABS: ALLEN TEST YES; BE -14.9 mmoll (-3.0-3.0); BLOOD TYPE ARTERIAL; HCO3-(ACT) 13.3 mmoll (20.0-26.0); METHB 1.4 % (0.0-1.5); O2HB 96.1 % (95.0-99.0); PCO2(98.6) 35 mmHg (35-45); PO2(98.6) 99 mmHg (60-100); SAMPLE BLOOD; SAO2 99.1 % (95.0-100.0); SRATE 18 BPM; THB 6.5 g/dL (11.5-17.4); TVOL 500 mL
[2018-06-05 05:14] LABS: MODALITY VENTILATOR; pH(98.6) 7.16 (7.35-7.45)
[2018-06-05 05:15] LABS: MAGNESIUM 1.9 mg/dL (1.5-2.7); PHOSPHORUS 5.8 mg/dL (2.7-4.5)
[2018-06-05 05:52] LABS: ACETONE SERUM NEGATIVE (NEGATIVE)
[2018-06-05] MEDS ORDERED: SODIUM BICARBONATE 8.4% IV ONE (06:33)
[2018-06-05 06:41] LABS: AGAP 21; ALB/GLOB RATIO 0.6; ALBUMIN 2.1 g/dL (3.5-5.0); ALKALINE PHOSPHATASE 147 U/L (32-104); BUN 46 mg/dL (8-22); CALCIUM 7.4 mg/dL (8.8-10.2); CHLORIDE 108 mmol/L (98-107); COSMO 297; CREATININE 4.3 mg/dL (0.5-0.9); ESTIMATED GFR 11; GLUCOSE 200 mg/dL (70-104); GOT 56 U/L (10-30); GPT 42 U/L (10-36); POTASSIUM 4.2 mmol/L (3.5-5.1); SODIUM 140 mmol/L (136-145); TCO2 11 mmol/L (25-35); TOTAL BILIRUBIN 0.21 mg/dL (0.20-1.00); TOTAL PROTEIN 5.7 g/dL (6.3-8.3)
--- NOTE | 2018-06-05 07:46 | Diag Imaging Result Doc PS360 ---
EXAM: CHEST-1 VIEW INDICATION: SOB TECHNIQUE: One view COMPARISON: 06/04/2018 FINDINGS: Support tubes and lines are in stable positions. The patient is rotated toward the right. Bilateral patchy infiltrates persist. There appears to be overall slight improvement on the right but worsening on the left. This may be due to positioning, however. Cardiac silhouette is stable. IMPRESSION: Mixed changes as described above. Electronically signed by Cody Green 06/05/2018 7:44 AM
--- NOTE | 2018-06-05 07:50 | PROGRESS NOTE ---
DATE: 06/05/2018 SUBJECTIVE: This patient is still intubated and sedated. pH is still low. She has been placed on bicarbonate drip. It looks like she had around 600 mL of urine in the past 12 hours. Positive acetone level. OBJECTIVE: Vital Signs: Temperature 97, pulse 95, respiratory rate 24. Blood pressure 153/66, oxygen saturation 93% on mechanical ventilation. HEENT: Head normocephalic. No trauma. PERRLA. Neck supple. No JVD. No masses. Central trachea. Chest: Coarse breath sounds bilaterally. Decreased breath sounds at the bases with some rales. Abdomen is soft, protuberant, nondistended. Positive bowel sounds. Extremities: No edema. No clubbing. No cyanosis. Neurologic: The patient is on mechanical ventilation and sedated. LABORATORY: Pending CBC. pH 7.16, lactate level is normal. Sodium 140, potassium 4.2, chloride 108, bicarbonate 11. BUN 46, creatinine 4.3, glucose 200. Calcium 7.4. AST 56. ALT 42. Alkaline phosphatase 147. Albumin 2.1. ASSESSMENT AND PLAN: 1. Septic shock. She is no longer on pressors. She has bilateral pneumonia and a positive blood culture that showed Klebsiella pneumonia, extended spectrum beta-lactamase negative, so she is bacteremic. We will continue with antibiotics. We will continue with management. Infectious Disease Department on board. 2. Status post cardiac arrest 3 days ago that lasted about 5 minutes. She regained spontaneous circulation and, since then, she has been on mechanical ventilation. She required pressors at the beginning but now she is off pressors. The hypothermia protocol was not started because the patient is bacteremic and septic. 3. Bacteremia. Positive culture that showed Klebsiella pneumonia. Infectious Disease Department on board. Continue with antibiotics. 4. Bilateral pneumonia likely secondary to gram-negative infection. Continue with antibiotics. 5. Right axilla hidradenitis. We will monitor for now. Surgery already evaluated this patient. 6. Gastrointestinal bleed. Her hemoglobin has been stable pending CBC today. Will monitor for now. Continue with Protonix. 7. Acute hypoxemic respiratory failure. She has dense infiltrates bilaterally, mostly on the left side and, for me, that looks about the same in the x-ray done today. 8. Diabetic ketoacidosis. Continue with the diabetic ketoacidosis protocol. Her pH is still low, and she has been placed on bicarbonate drip now. 9. Acute kidney injury. We have a positive balance of 7.8 L, and it looks like she voided around 606 mL in the past 12 hours. Hopefully, the kidney function will recover. Creatinine has been about the same since last night. 10. Hypophosphatemia. We will continue to monitor but basically resolved. 11. Hypokalemia, stable. 12. Medical noncompliance. Apparently, this patient has not been taking care of her blood sugar at home. Her hemoglobin A1c is 13. 13. Anemia with a borderline MCV at 80.1. Iron level is low but ferritin is 225. For now, we will monitor and we will transfuse as needed. CRITICAL CARE TIME: 40 minutes. cc: Ivan Lopez MD
[2018-06-05] MEDS: D5 1/2 NS 1,000 ML IV SCH (08:06)
[2018-06-05] MEDS: MAXIPIME 2 GM in NS 100 ML IV SCH (08:19)
[2018-06-05] MEDS: 1/2 NS 1,000 ML IV SCH (08:24)
[2018-06-05 08:59] LABS: BASO# 0.11 X1000 (0.0-0.2); BASO% 0.7 % (0.0-0.8); EOS# 0.09 X1000 (0.0-0.7); EOS% 0.6 % (0.0-10.0); HEMATOCRIT 23.5 % (37.0-47.0); HEMOGLOBIN 8.1 g/dL (12.0-16.0); IMM GRAN# 0.94 X1000 (0.0-0.04); IMM GRAN% 6.3 % (0.0-0.5); LYMPH# 2.31 X1000 (1.2-3.4); LYMPH% 15.6 % (20.5-51.1); MCH 27.4 PG (27-31); MCHC 34.5 g/dL (33-37); MCV 79.4 FL (81-99); MONO# 0.76 X1000 (0.11-0.59); MONO% 5.1 % (1.7-9.3); MPV 9.9 FL (7.4-10.4); NEUT# 10.61 X1000 (1.4-6.5); NEUT% 71.7 % (42.2-75.2); PLT 362 X1000 (130-400); RBC 2.96 XMIL (4.2-5.4); WBC 14.82 X1000 (4.8-10.8)
[2018-06-05 09:04] LABS: BANDS 6 % (0-1); LYMPHS 6 % (21-51); MONO 2 % (1-9); NRBC 1 % (0-0); SEGS 82 % (42-75)
[2018-06-05 09:13] LABS: ALLEN TEST YES; BE -14.2 mmoll (-3.0-3.0); BLOOD TYPE ARTERIAL; HCO3-(ACT) 13.8 mmoll (20.0-26.0); METHB 1.5 % (0.0-1.5); O2(CT) 11.2 mL/dL (15.0-23.0); O2HB 90.9 % (95.0-99.0); PCO2(98.6) 35 mmHg (35-45); PO2(98.6) 65 mmHg (60-100); SAMPLE BLOOD; SAO2 94.5 % (95.0-100.0); SRATE 18 BPM; THB 8.7 g/dL (11.5-17.4); TVOL 500 mL
[2018-06-05 09:15] LABS: MODALITY VENTILATOR; pH(98.6) 7.18 (7.35-7.45)
[2018-06-05 09:17] LABS: CALCIUM 7.4 mg/dL (8.8-10.2); CREATININE 4.3 mg/dL (0.5-0.9); MAGNESIUM 1.8 mg/dL (1.5-2.7); PHOSPHORUS 5.8 mg/dL (2.7-4.5); POTASSIUM 3.9 mmol/L (3.5-5.1)
--- NOTE | 2018-06-05 09:42 | INFECTIOUS DISEASE PROGRESS NO ---
DATE: 06/05/2018 SUBJECTIVE: Patient has a Klebsiella bacteremia. The patient also has a bilateral pneumonia, and I assume that it is due to Klebsiella as well. MEDICATIONS: This is day 2 on cefepime. OBJECTIVE: Vital Signs: Temperature is 97.5 degrees, pulse 97, respirations 24, blood pressure 141/61. General: This is an ill-appearing, obese, young female. She is intubated. She does not seem to be in any acute distress. Head/eyes/ears/nose/throat: She has no drainage from the nose or the ears. The patient did not respond to verbal stimuli. Neck: No meningismus. Lungs: Clear to auscultation. Cardiovascular: Heart rate is regular. Abdomen: Soft and nontender. Neurologic: The patient is obtunded. There is no tremor. Integument: No rashes. The IV sites are not erythematous. LAB AND X-RAY: Chest x-ray shows bilateral infiltrates. CK is 68. Immunoglobulin levels are normal. Hepatitis panel is nonreactive. Repeat blood cultures are pending. ASSESSMENT AND PLAN: The patient has a pneumonia, which I think is most likely due to Klebsiella and given the fact that the patient has a Klebsiella bacteremia. I have switched the patient from cefepime to Rocephin. COMORBIDITIES: The patient had a cardiac arrest, and she also is a diabetic, and she has morbid obesity, and acute kidney injury. cc: Juan Engle MD
[2018-06-05] MEDS ORDERED: VANCOMYCIN 1,750 MG in NS 250 ML IV SCH (10:00)
--- NOTE | 2018-06-05 10:59 | NEPHROLOGY PROGRESS NOTE ---
DATE: 06/05/2018 SUBJECTIVE: Patient currently mechanically ventilated. No sedation on board. OBJECTIVE: Vital Signs: Temperature 99.4, pulse 116, respiratory rate 20, blood pressure 111/66. Intake 732 mL. Output 1.5 L. PHYSICAL EXAMINATION: General: This is a young adult female, currently mechanically ventilated. Her eyes are open but she does not make any purposeful movement. Does not track. No response. HEENT: Normocephalic, atraumatic. She is orally intubated. Neck is supple without JVD. Cardiovascular: Regular rhythm with a tachy rate. Pulmonary: She continues with rhonchi bilaterally. Remains mechanically ventilated. Abdomen is soft with hypoactive bowel sounds. : Not inspected. Extremities: No clubbing, cyanosis. Integumentary: Skin is warm and dry. LABORATORY DATA: WBC of 13.3, hemoglobin 9. Sodium 134, potassium 4.3, CO2 21 , creatinine 4.3. ASSESSMENT AND PLAN: 1. Chronic kidney disease, stage 5D. We dialyzed yesterday. We were able to remove a liter and a half of fluid. She has had no significant fluid intake overnight. Her renal function and other labs are fairly stable. We will run her on sustained low-efficiency dialysis on Friday. 2. Electrolytes, acid-base balance, anemia. See above for plan. 3. Pneumonia; continues to require ventilatory support. 4. Status post cardiac arrest with likely anoxic brain injury, followed by Primary and Neurology. Dictated by PATRICIA Kohler for Alejandro Corona MD Data reviewed, discussed with Greyson Hung on 06/05/28. I agree with the above assessment and plan of care. cc: Alejandro Corona MD [facility]
--- NOTE | 2018-06-05 11:11 | NEPHROLOGY PROGRESS NOTE ---
DATE: 06/05/2018 SUBJECTIVE: The patient remains mechanically ventilated, sedated. OBJECTIVE: Vital Signs: Temperature 97.5 degrees, pulse 97, respiratory rate 24, blood pressure 141/61. Intake 4.4 L, output 1.1 L. General: This is a middle-aged female, resting in bed, mechanically ventilated. HEENT: Normocephalic, atraumatic. Conjunctivae are pale. Oral mucosa dry. Orally intubated. Neck: Thick. Supple. Unable to determine JVD. Cardiovascular: Regular rate and rhythm. Pulmonary: Rhonchi bilaterally. Decreased breath sounds. Mechanically ventilated. Abdomen: Obese. Hypoactive bowel sounds. : Morse catheter. Moderate urine. Extremities: 1+ edema. No clubbing or cyanosis. Integumentary: Skin is warm and dry. LAB DATA: Sodium 140, potassium 4.2, CO2 11, BUN 46, creatinine 4.3. ASSESSMENT AND PLAN: 1. Acute kidney injury secondary to cardiac arrest and shock. Her renal function really is unchanged although her acidosis is worsening. Her fluid volume, she is now approximately 8 L positive. We will plan to have Surgery place dialysis access today, and we need to initiate SLED thereafter. Once access is placed we will dialyze on a 4 K bath, 3 to 4 L fluid volume removal for an 8 hour treatment. 2. Bacteremia. She is followed by primary and Infectious Disease. She is on appropriately dosed antibiotics. We will make no changes. Dictated by PATRICIA Kohler for Alejandro Corona MD Data reviewed, discussed with Greyson Hung on 06/05/28. I agree with the above assessment and plan of care. cc: Aleajndro Corona MD [facility]
[2018-06-05 12:44] LABS: CALCIUM 7.4 mg/dL (8.8-10.2); CREATININE 4.2 mg/dL (0.5-0.9); MAGNESIUM 1.8 mg/dL (1.5-2.7); PHOSPHORUS 6.6 mg/dL (2.7-4.5); POTASSIUM 3.8 mmol/L (3.5-5.1)
[2018-06-05] MEDS: SODIUM CHLORIDE 0.9% INJ SCH (13:21)
[2018-06-05 13:54] LABS: ALLEN TEST YES; BE -14.3 mmoll (-3.0-3.0); BLOOD TYPE ARTERIAL; HCO3-(ACT) 13.8 mmoll (20.0-26.0); METHB 1.5 % (0.0-1.5); O2(CT) 11.4 mL/dL (15.0-23.0); O2HB 96.8 % (95.0-99.0); PCO2(98.6) 32 mmHg (35-45); PO2(98.6) 154 mmHg (60-100); SAMPLE BLOOD; SAO2 99.7 % (95.0-100.0); SRATE 18 BPM; THB 8.1 g/dL (11.5-17.4); TVOL 700 mL
[2018-06-05 13:56] LABS: MODALITY VENTILATOR
[2018-06-05] MEDS: SODIUM BICARBONATE 8.4% 150 MEQ in D5W 1,000 ML IV SCH (15:02)
--- NOTE | 2018-06-05 15:43 | PULMONOLOGY PROGRESS NOTE ---
DATE: 06/05/2018 SUBJECTIVE: The patient does not respond to voice or painful stimuli. OBJECTIVE: Vital Signs: Patient has a head roll with each respiratory effort. Blood pressure 122/66, heart rate 95, respiratory rate 22, oxygen saturation 96%. HEENT: Pupils are equal, but sluggish. There may be a slight dysconjugate gaze. Oropharynx is dry. Neck: Supple. Chest: Reveals coarse rhonchi bilaterally. Cardiac exam: Regular rate. Regular rhythm. Abdomen: Obese and soft with excellent bowel sounds. Extremities: Reveal 1+ peripheral edema. LABORATORIES/X-RAYS: Chest x-ray reveals patchy bilateral infiltrates. Arterial blood gas reveals pH of 7.23 pCO2 of 26, PO2 of 75. White blood count 14.82, hemoglobin 8.1, platelet count 362,000. Sodium 141, potassium 3.8, chloride 106, bicarbonate 13. BUN 52, creatinine 4.2. IMPRESSION: A 37 year old with poorly-controlled diabetes, who presented with bacterial pneumonia, who has sustained a cardiopulmonary arrest. The patient has acute hypoxemic respiratory failure, acute renal failure, and a neurologic examination consistent with anoxic encephalopathy. She currently is receiving sodium bicarbonate, but no nutrition support. RECOMMENDATION: 1. Initiate NG feeding unless contraindicated. 2. Initiate DVT prophylaxis unless other team members indicate contraindication. 3. Plans for hemodialysis noted. 4. Consider CT scan of the brain this weekend if mental status does improve. 5. Overall prognosis appears to be guarded. cc: John Madison MD
--- NOTE | 2018-06-05 16:07 | GENERAL SURGERY PROGRESS NOTE ---
DATE: 06/05/2018 SUBJECTIVE: She remains critically ill. She is on the ventilator. She has worsening renal dysfunction, electrolyte abnormalities. Dr. Corona plans to start continuous dialysis at the bedside. OBJECTIVE: Vital Signs: On exam, she is afebrile. Heart rate in the 90s. Blood pressure 126/68. Oxygen saturation is in the high 90s. She is on a ventilator. General: She is sedated, not really responsive. Occasionally moves spontaneously. Cardiovascular: Normal rate. Pulmonary: Endotracheal tube in place with equal chest rise. Abdomen: Obese. It is distended and soft. Right groin is without signs of infection. LABS: White count 14, hematocrit 23, creatinine is 4.3, potassium 4.2. ASSESSMENT/PLAN: A 37-year-old female status post code event related to respiratory failure and bradycardia. Dr. Corona plans to start her on dialysis. Vas-Cath and dialysis has been discussed with the ex- and 17-year-old daughter, both of which understand and consent. We also have consent from Dr. Jones and Dr. Corona to start this. We will place a Vas-Cath operative note to follow. cc: Kira De La Torre MD
--- NOTE | 2018-06-05 16:14 | OPERATIVE NOTE ---
PROCEDURE DATE: 06/05/2018 PREOP DIAGNOSIS: 1. Diabetic ketoacidosis. 2. Acute renal failure. POSTOP: 1. Diabetic ketoacidosis. 2. Acute renal failure. PROCEDURE PERFORMED: Right femoral Vas-Cath. ESTIMATED BLOOD LOSS: Less than 5 mL. ANESTHESIA: ICU sedation protocol. INDICATION: 37-year-old female admitted with DKA. She has had a code event related to this and now has worsening renal dysfunction, needs dialysis. FINDINGS: Normal vascular anatomy in the right groin. OPERATIVE NOTE: Risks, benefits, alternatives discussed with the and daughter and they both consented to the procedure. Her right groin prepped chlorhexidine solution draped usual fashion. After time-out, the femoral pulse was palpated and the femoral vein was accessed on the first pass. Dark nonpulsatile venous blood was noted on return, the wire threaded easily. Skin shraddha was made and tract was dilated. Triple-lumen Trialysis catheter was advanced. All ports withdrew blood and flushed without resistance, secured and a dressing was applied as well as sterile caps. She tolerated without any issues. cc: Kira De La Torre MD
[2018-06-05 16:41] LABS: CALCIUM 7.3 mg/dL (8.8-10.2); CREATININE 4.1 mg/dL (0.5-0.9); MAGNESIUM 1.7 mg/dL (1.5-2.7); PHOSPHORUS 5.9 mg/dL (2.7-4.5); POTASSIUM 3.5 mmol/L (3.5-5.1)
[2018-06-05 17:40] LABS: ALLEN TEST YES; BE -4.4 mmoll (-3.0-3.0); BLOOD TYPE ARTERIAL; HCO3-(ACT) 21.5 mmoll (20.0-26.0); METHB 1.4 % (0.0-1.5); O2(CT) 11.2 mL/dL (15.0-23.0); O2HB 96.6 % (95.0-99.0); PCO2(98.6) 32 mmHg (35-45); PO2(98.6) 158 mmHg (60-100); SAMPLE BLOOD; SAO2 99.6 % (95.0-100.0); SRATE 18 BPM; TVOL 700 mL
[2018-06-05 17:42] LABS: MODALITY VENTILATOR
[2018-06-05] MEDS: LOVENOX SUBQ SCH (18:00)
[2018-06-05] MEDS ORDERED: TIGHT: 0.2 ML/HR FOR DIALYSIS MISC PRN (18:32)
[2018-06-05] MEDS ORDERED: NS 2,000 ML MISC PRN (18:32)
[2018-06-05 20:43] LABS: CALCIUM 7.3 mg/dL (8.8-10.2); CREATININE 3.2 mg/dL (0.5-0.9); MAGNESIUM 1.6 mg/dL (1.5-2.7); PHOSPHORUS 4.5 mg/dL (2.7-4.5); POTASSIUM 3.1 mmol/L (3.5-5.1)
[2018-06-05 20:47] LABS: ALLEN TEST NO; BE -6.7 mmoll (-3.0-3.0); BLOOD TYPE ARTERIAL; HCO3-(ACT) 19.7 mmoll (20.0-26.0); METHB 1.2 % (0.0-1.5); O2HB 97.4 % (95.0-99.0); PCO2(98.6) 32 mmHg (35-45); PO2(98.6) 175 mmHg (60-100); SAMPLE BLOOD; SAO2 100.7 % (95.0-100.0); SRATE 18 BPM; TVOL 700 mL; pH(98.6) 7.36 (7.35-7.45)
[2018-06-05 20:48] LABS: MODALITY VENTILATOR
[2018-06-05] MEDS: ROCEPHIN 2 GM in NS 50 ML IV SCH (20:49)
[2018-06-05] MEDS: HUMULIN R 100 UNIT in NS 100 ML IV SCH (23:32)
[2018-06-06 01:28] LABS: CALCIUM 7.4 mg/dL (8.8-10.2); CREATININE 3.2 mg/dL (0.5-0.9); MAGNESIUM 1.6 mg/dL (1.5-2.7); PHOSPHORUS 4.9 mg/dL (2.7-4.5); POTASSIUM 3.2 mmol/L (3.5-5.1)
[2018-06-06 01:37] LABS: ALLEN TEST NO; BE -6.8 mmoll (-3.0-3.0); BLOOD TYPE ARTERIAL; HCO3-(ACT) 19.6 mmoll (20.0-26.0); METHB 1.4 % (0.0-1.5); MODALITY VENTILATOR; O2(CT) 11.7 mL/dL (15.0-23.0); O2HB 97.1 % (95.0-99.0); PCO2(98.6) 34 mmHg (35-45); PO2(98.6) 197 mmHg (60-100); SAMPLE BLOOD; SAO2 100.3 % (95.0-100.0); SRATE 18 BPM; THB 8.2 g/dL (11.5-17.4); TVOL 700 mL; pH(98.6) 7.34 (7.35-7.45)
[2018-06-06] MEDS: PROTONIX IV SCH ×2 (01:44→13:59)
[2018-06-06] MEDS: DIPRIVAN 1% 1,000 MG/100 ML BOTTLE IV SCH ×10 (01:45→23:22)
[2018-06-06] MEDS: 1/2 NS 1,000 ML IV SCH ×2 (04:34→20:16)
[2018-06-06] MEDS: SODIUM BICARBONATE 8.4% 150 MEQ in D5W 1,000 ML IV SCH ×2 (04:34→06:56)
[2018-06-06] MEDS: D5 1/2 NS 1,000 ML IV SCH (04:40)
[2018-06-06 05:10] LABS: ALLEN TEST YES; BE -6.8 mmoll (-3.0-3.0); BLOOD TYPE ARTERIAL; HCO3-(ACT) 19.7 mmoll (20.0-26.0); METHB 1.4 % (0.0-1.5); O2(CT) 10.2 mL/dL (15.0-23.0); PCO2(98.6) 34 mmHg (35-45); PO2(98.6) 156 mmHg (60-100); SAMPLE BLOOD; SAO2 99.9 % (95.0-100.0); SRATE 18 BPM; THB 7.2 g/dL (11.5-17.4); TVOL 700 mL; pH(98.6) 7.34 (7.35-7.45)
[2018-06-06 05:18] LABS: MODALITY VENTILATOR
[2018-06-06 06:17] LABS: BASO# 0.16 X1000 (0.0-0.2); BASO% 0.9 % (0.0-0.8); EOS# 0.19 X1000 (0.0-0.7); HEMATOCRIT 21.7 % (37.0-47.0); HEMOGLOBIN 7.9 g/dL (12.0-16.0); IMM GRAN# 1.26 X1000 (0.0-0.04); IMM GRAN% 6.7 % (0.0-0.5); LYMPH# 2.82 X1000 (1.2-3.4); MCH 28.4 PG (27-31); MCHC 36.4 g/dL (33-37); MCV 78.1 FL (81-99); MONO# 0.91 X1000 (0.11-0.59); MONO% 4.9 % (1.7-9.3); MPV 10.3 FL (7.4-10.4); NEUT# 13.42 X1000 (1.4-6.5); NEUT% 71.5 % (42.2-75.2); PLT 389 X1000 (130-400); RBC 2.78 XMIL (4.2-5.4); RDW 15.6 % (11.5-14.5); WBC 18.76 X1000 (4.8-10.8)
[2018-06-06 06:36] LABS: CALCIUM 7.3 mg/dL (8.8-10.2); CREATININE 3.4 mg/dL (0.5-0.9); MAGNESIUM 2.3 mg/dL (1.5-2.7); POTASSIUM 3.2 mmol/L (3.5-5.1)
--- NOTE | 2018-06-06 07:22 | Diag Imaging Result Doc PS360 ---
EXAM: CHEST-1 VIEW HISTORY: SOB TECHNIQUE: Chest single view COMPARISON: 06/05/2018 FINDINGS: There are dense bilateral nodular infiltrates. Heart remains mildly enlarged. No pleural effusions identified. No change in the endotracheal tube, or nasogastric tube. IMPRESSION: No interval improvement. Electronically signed by Castillo Quiroz 06/06/2018 7:19 AM
[2018-06-06] MEDS ORDERED: DILANTIN IV ONE (07:27)
[2018-06-06] MEDS ORDERED: DILANTIN 1,000 MG in NS 100 ML IV ONE (08:00)
[2018-06-06] MEDS ORDERED: NS 2,000 ML MISC PRN (08:12)
[2018-06-06] MEDS: ROCEPHIN 2 GM in NS 50 ML IV SCH ×2 (08:56→20:16)
[2018-06-06] MEDS: BASAGLAR SUBQ SCH (08:57)
--- NOTE | 2018-06-06 09:17 | PROGRESS NOTE ---
DATE: 06/06/2018 SUBJECTIVE: This patient is still on mechanical ventilation and sedated. We started dialysis yesterday and 1.5 L of fluid has been removed. Her urine output, though, still low. This patient is still remarkably sick. Her acetone level is negative, so I will stop the insulin drip, and I will start this patient on insulin Lantus and sliding scale insulin I will check the laboratory every 8 hours as well. OBJECTIVE: Vital Signs: Temperature 98.3 degrees, pulse 88, respiratory rate 18, blood pressure 108/60, oxygen saturation 100% on mechanical ventilation. HEENT: Head normocephalic. No trauma. PERRLA. Neck: Supple. No JVD. No masses. Central trachea. Chest: Coarse breath sounds bilaterally. Decreased breath sounds at the bases with some rales. Abdomen: Soft, protuberant, mildly distended. Positive bowel sounds. Extremities: No edema. No clubbing. No cyanosis. Neurological examination: The patient is on mechanical ventilation and sedated. LABORATORY: WBC 18.7, hemoglobin 7.9, hematocrit 21.7, platelets 389. Sodium 139, potassium 3.2, chloride 100, bicarbonate 17. BUN 42, creatinine 3.4, glucose 214, calcium 7.3, albumin 2.3. ASSESSMENT AND PLAN: 1. Septic shock. She has bilateral pneumonia and positive blood culture that showed Klebsiella pneumonia. Extended spectrum beta lactamase negative. She is bacteremic. We will continue antibiotics. Infectious Disease Department on board. No pressors. 2. Status post cardiac arrest 3 days ago. This episode lasted about 5 minutes. She received bicarbonate and epinephrine. She regained spontaneous circulation, and since then she has been on mechanical ventilation. She required pressors at the beginning, but now she is off pressors. The hypothermia protocol was not started because this patient is bacteremic and septic. 3. Bacteremia. We have a positive blood culture that showed Klebsiella pneumonia. We will repeat the blood culture yesterday and so far has been negative. 4. Bilateral pneumonia, continue antibiotics. 5. Right axilla hidradenitis. Will monitor for now. Surgery Department already evaluated this patient. We cultured this secretion and it is negative. 6. Gastrointestinal bleed. Her hemoglobin has been dropping a little bit, but this has been stable for the past 3 days. Will monitor for now. 7. Acute kidney injury, so far with no recovery. She is getting dialysis; yesterday was the first day. We removed around 1.5 liters of fluid. 8. Hypophosphatemia resolved. 9. Hypokalemia, stable, slightly decreased, but since she is not on diabetic ketoacidosis and she has end-stage renal disease, I will hold any kind of potassium treatment at this moment. 10. Medical noncompliance. Aware. Hemoglobin A1c was 13 upon admission. 11. Anemia with borderline MCV at 80.1. Iron level is low, but ferritin is 225. For now, we will monitor and transfuse as needed. 12. Diabetic ketoacidosis, resolved. I have placed this patient on 40 of Lantus and sliding scale insulin. We will monitor. She is still on bicarbonate drip now, which probably will be stopped in the near future. cc: Ivan Lopez MD
[2018-06-06] MEDS ORDERED: [UNRECOGNIZED DRUG - OTHER] MISC ONE (09:30)
[2018-06-06] MEDS: HUMULIN R SUBQ SCH ×3 (11:01→20:16)
--- NOTE | 2018-06-06 13:55 | NEPHROLOGY PROGRESS NOTE ---
DATE: 06/06/2018 SUBJECTIVE: Patient remains sedated and mechanically ventilated. OBJECTIVE: Vital Signs: Temperature 98.4, pulse 99, respiratory rate 23, blood pressure 114/61. Intake 4.2 L. Output 2.0 L. General: A middle-aged female, resting in bed. Mechanically ventilated and sedated. Remains on pressor support. HEENT: Normocephalic, atraumatic. ISIAH. Oral mucosa dry. Neck: Supple, thick. Unable to discern JVD. Cardiovascular: Regular rate and rhythm. Pulmonary: She has rhonchi bilaterally. Abdomen: Soft, obese. Positive bowel sounds. : Not inspected. Extremities: Positive 1 to 2+ edema. Integumentary: Skin is warm and dry. LAB DATA: WBC of 18.7, hemoglobin 7.9. Sodium 139, potassium 3.2. CO2 of 17, BUN 42, creatinine 3.7. ASSESSMENT AND PLAN: 1. Acute kidney injury secondary to cardiac arrest and shock. Renal function unchanged with continued acidosis. We initiated a dialysis access last night. We were unable to SLED her yesterday secondary to time constraints, but was able to dialyze her for a short treatment. We will plan to SLED her today with a goal of 4 L removal as tolerated. 2. Bacteremia, followed by primary. 3. Hypotension. Continue pressor support as needed. Dictated by PATRICIA Kohler for Alejandro Corona MD cc: Alejandro Corona MD
[2018-06-06] MEDS: SODIUM CHLORIDE 0.9% INJ SCH (13:59)
[2018-06-06 14:49] LABS: CALCIUM 7.4 mg/dL (8.8-10.2); CREATININE 1.9 mg/dL (0.5-0.9); MAGNESIUM 1.7 mg/dL (1.5-2.7); PHOSPHORUS 2.3 mg/dL (2.7-4.5); POTASSIUM 3.4 mmol/L (3.5-5.1)
--- NOTE | 2018-06-06 14:54 | PULMONOLOGY PROGRESS NOTE ---
DATE: 06/06/2018 INTERIM HISTORY: Sedation vacation was performed earlier this morning. No purposeful movement. The patient did bite on the endotracheal tube. She is currently being initiated on hemodialysis. OBJECTIVE: The patient has been afebrile for the last 24 hours. Blood pressure 89/59, heart rate 103, respiratory rate 24, oxygen saturation 94%. HEENT: Mild dysconjugate gaze. Pupils are equal and reactive. Oropharynx is dry but clear. Neck is supple. Chest reveals occasional rhonchi bilaterally. Cardiac Exam: S1-S2. Abdomen is obese and soft with positive bowel sounds. Extremities reveal trace edema. LABORATORIES: Chest x-ray reveals bilateral pulmonary infiltrates without change. White blood count 18.8, hemoglobin 7.9, platelet count 389,000. Sodium 139, potassium 3.2, chloride 100, bicarbonate 17. BUN 42, creatinine 3.4. Arterial blood gas: pH 7.34, pCO2 of 34, PO2 of 156. IMPRESSION: A 37-year-old with 1. Poorly controlled diabetes mellitus. 2. Bacterial pneumonia. 3. Cardiopulmonary arrest with acute hypoxemic respiratory failure. 4. Acute renal failure. 5. Anoxic encephalopathy. She appears to be tolerating her tube feeds. RECOMMENDATIONS: 1. Continue tube feeds as tolerated. 2. Continue DVT prophylaxis. 3. Continue hemodialysis. 4. Consider CT scan tomorrow if her mental status remains poor. 5. Significant anoxic encephalopathy is suspected. Prognosis appears to be very guarded. cc: John Madison MD
[2018-06-06 17:52] LABS: ALLEN TEST YES; BLOOD TYPE ARTERIAL; SAMPLE BLOOD
[2018-06-06 17:53] LABS: BE 7.6 mmoll (-3.0-3.0); HCO3-(ACT) 30.9 mmoll (20.0-26.0); METHB 1.9 % (0.0-1.5); O2(CT) 10.3 mL/dL (15.0-23.0); O2HB 95.9 % (95.0-99.0); PCO2(98.6) 33 mmHg (35-45); PO2(98.6) 124 mmHg (60-100); SAO2 99.9 % (95.0-100.0); SRATE 18 BPM; THB 7.4 g/dL (11.5-17.4); TVOL 700 mL; pH(98.6) 7.57 (7.35-7.45)
[2018-06-06 17:54] LABS: MODALITY VENTILATOR
[2018-06-06] MEDS: LOVENOX SUBQ SCH (18:06)
[2018-06-06 22:01] LABS: CALCIUM 7.6 mg/dL (8.8-10.2); CREATININE 1.4 mg/dL (0.5-0.9); MAGNESIUM 1.8 mg/dL (1.5-2.7); PHOSPHORUS 2.1 mg/dL (2.7-4.5); POTASSIUM 3.4 mmol/L (3.5-5.1)
[2018-06-07] MEDS: DIPRIVAN 1% 1,000 MG/100 ML BOTTLE IV SCH ×8 (01:32→23:59)
[2018-06-07] MEDS: PROTONIX IV SCH ×2 (01:37→13:21)
[2018-06-07 04:32] LABS: ALLEN TEST YES; BE 2.4 mmoll (-3.0-3.0); BLOOD TYPE ARTERIAL; HCO3-(ACT) 26.8 mmoll (20.0-26.0); O2HB 96.2 % (95.0-99.0); PCO2(98.6) 31 mmHg (35-45); PO2(98.6) 163 mmHg (60-100); SAMPLE BLOOD; SAO2 99.6 % (95.0-100.0); SRATE 18 BPM; THB 7.1 g/dL (11.5-17.4); TVOL 700 mL; pH(98.6) 7.52 (7.35-7.45)
[2018-06-07 04:33] LABS: MODALITY VENTILATOR
[2018-06-07] MEDS: HUMULIN R SUBQ SCH ×4 (06:10→21:09)
--- NOTE | 2018-06-07 07:33 | Diag Imaging Result Doc PS360 ---
EXAM: CHEST-1 VIEW - 06/07/2018 HISTORY: SOB TECHNIQUE: Portable chest COMPARISON: 06/06/2018 FINDINGS: Endotracheal tube and nasogastric tube remain in place. Heart size is within normal limits. Inspiration is mildly shallow. There are bilateral infiltrates with nodularity, most prominent on the left, which appear overall similar to the prior exam. There is no substantial pleural effusion or pneumothorax identified. IMPRESSION: Mildly shallow inspiration. Bilateral infiltrates with nodularity, most prominent on the left, similar to prior. Electronically signed by Masoud Solano 06/07/2018 7:31 AM
[2018-06-07] MEDS: BASAGLAR SUBQ SCH (08:16)
[2018-06-07] MEDS: 1/2 NS 1,000 ML IV SCH ×2 (08:17→13:21)
[2018-06-07] MEDS: ROCEPHIN 2 GM in NS 50 ML IV SCH ×2 (08:17→21:00)
--- NOTE | 2018-06-07 08:28 | PROGRESS NOTE ---
DATE: 06/07/2018 SUBJECTIVE: This patient is still on mechanical ventilation and sedated. As per the nurse, every time this patient has a sedation vacation, she became agitated, biting the tube, and grimacing. She was not following commands. Pending lab work at this moment. OBJECTIVE: Vital Signs: Temperature 99 degrees, pulse 95, respiratory rate 18, blood pressure 107/75, oxygen saturation 99 on mechanical ventilation. HEENT: Head normocephalic, no trauma. PERRLA. Neck: Supple. No JVD. No masses. Central trachea. Chest: Coarse breath sounds bilaterally. Decreased breath sounds at the bases with some rales. Abdomen: Soft, protuberant, mildly distended. Positive bowel sounds. Extremities: 1+ pedal edema. No clubbing. No cyanosis. Neurological: The patient is on mechanical ventilation and sedated. DIAGNOSTIC DATA: Pending lab work at this. ASSESSMENT AND PLAN: 1. Septic shock. This patient has bilateral pneumonia and also bacteremia. Blood culture showed Klebsiella pneumonia. Infectious Disease department on board at this moment. She is not on pressors. 2. Status post cardiac arrest 4 days ago. This patient lasted about 5 minutes to recover again her spontaneous circulation. Since then, she has been on mechanical ventilation. At the beginning, she required pressors, but now she is off pressors. Hypothermia protocol was not started because this patient is bacteremic and septic. We will monitor this patient closely. 3. Bacteremia, as above. Continue with the same management. Infectious Disease department on board. 4. Bilateral pneumonia. Continue with antibiotics. 5. Right axilla hidradenitis. We will monitor for now. Surgery department on board. Culture from that area has been negative. 6. Diabetic ketoacidosis (DKA), resolved. Continue with the same management. Seems to be stable. 7. Gastrointestinal (GI) bleed. Her hemoglobin has been dropping a little but has been stable for the past days. Pending lab work today, though. 8. Acute kidney injury. This patient has been on dialysis. The urine output still low. Nephrology on board. We will follow their recommendations. 9. Hypophosphatemia, resolved. 10. Hypokalemia, stable. Pending lab work today. 11. Medical noncompliance. Aware. Hemoglobin A1c 13 upon admission. 12. Anemia with borderline low MCV, iron level is low, but ferritin is 225. For now, we will monitor and transfuse as needed. CRITICAL CARE TIME: 35 minutes. cc: Ivan Lopez MD
--- NOTE | 2018-06-07 11:18 | NEPHROLOGY PROGRESS NOTE ---
DATE: 06/07/2018 SUBJECTIVE: The patient remains on mechanical ventilation. She is sedated. OBJECTIVE: Vital Signs: Temperature 99 degrees, pulse 98, respiratory rate 18, blood pressure 106/48. General: This is a middle-aged female, currently sedated, mechanically ventilated. HEENT: Normocephalic, atraumatic. Oral mucosa dry. Orally intubated. Neck: Thick, supple, unable to discern JVD. Cardiovascular: Regular rate and rhythm. No murmur is appreciated. Pulmonary: She has wheezes bilaterally, left greater than right. Abdomen: Soft, obese, hypoactive bowel sounds. : Morse catheter. Extremities: 1 to 2+ edema. No clubbing, cyanosis. Integumentary: Skin is warm and dry. INPUT AND OUTPUT: Intake 4 L output 2.6 L. 2.5 of this was ultrafiltrate on dialysis yesterday. LABORATORY DATA: Pending. ASSESSMENT AND PLAN: 1. Acute kidney injury secondary to cardiac arrest and shock. We ran the patient on SLED for her dialysis yesterday. We were able to remove 2.5 L. We will plan to dialyze her again on Friday. We will anticipate that she will run again on SLED secondary to her fluid volume status. 2. Bacteremia, followed by primary. No changes needed to her antibiotics. Infectious Disease following. 3. Electrolytes, acid-base balance, anemia. It has been noted that her hemoglobin has been dropping previously. It had been stable. There had been some issue with gastrointestinal bleed prior. Dictated by PATRICIA Kolher for Alejandro Corona MD cc: Alejandro Corona MD
[2018-06-07 11:29] LABS: CALCIUM 7.1 mg/dL (8.8-10.2); CREATININE 2.3 mg/dL (0.5-0.9); MAGNESIUM 2.1 mg/dL (1.5-2.7); POTASSIUM 3.6 mmol/L (3.5-5.1)
[2018-06-07 11:44] LABS: BASO# 0.02 X1000 (0.0-0.2); BASO% 0.1 % (0.0-0.8); EOS% 1.2 % (0.0-10.0); HEMATOCRIT 20.9 % (37.0-47.0); LYMPH# 2.55 X1000 (1.2-3.4); LYMPH% 15.3 % (20.5-51.1); MCH 26.8 PG (27-31); MCHC 33.5 g/dL (33-37); MCV 80.1 FL (81-99); MONO# 1.06 X1000 (0.11-0.59); MONO% 6.4 % (1.7-9.3); MPV 9.8 FL (7.4-10.4); NEUT# 12.81 X1000 (1.4-6.5); PLT 390 X1000 (130-400); RBC 2.61 XMIL (4.2-5.4); RDW 15.9 % (11.5-14.5); WBC 16.64 X1000 (4.8-10.8)
[2018-06-07 12:10] LABS: ANISOCYTOSIS 1+; BANDS 24 % (0-1); EOS 4 % (1-10); HYPOCHROM OCCASIONAL; LYMPHS 14 % (21-51); MONO 6 % (1-9); SEGS 46 % (42-75)
[2018-06-07 12:11] LABS: POIKILOCYTOSIS OCCASIONAL
[2018-06-07] MEDS: SODIUM CHLORIDE 0.9% INJ SCH (13:21)
[2018-06-07 15:15] LABS: CALCIUM 7.1 mg/dL (8.8-10.2); CREATININE 2.6 mg/dL (0.5-0.9); MAGNESIUM 2.1 mg/dL (1.5-2.7); PHOSPHORUS 5.6 mg/dL (2.7-4.5); POTASSIUM 3.4 mmol/L (3.5-5.1)
[2018-06-07] MEDS: CARAFATE LIQUID GT SCH ×2 (17:03→21:08)
[2018-06-07] MEDS: LOVENOX SUBQ SCH (17:03)
--- NOTE | 2018-06-07 18:01 | PROGRESS NOTE ---
DATE: 06/07/2018 SUBJECTIVE: The patient is currently tolerating her tube feedings. There has been no recurrent bleeding. PHYSICAL EXAM: Her blood pressure is 130/73, pulse 74, respirations 24, temperature of 99.3 degrees. The remainder of her exam was deferred. OBJECTIVE DATA: Reveals a pH of 7.0 with hematocrit of 20.9 and a white count of 16.64. She has 390,000 platelets. Sodium is 136, potassium 3.4, chloride 94, CO2 21, BUN 25, creatinine 2.6, glucose 162. Calcium 7.1, phosphorus 5.6 and magnesium 2.1. RECOMMENDATION: 1. Continue Nepro tube feedings. 2. Consider an EGD once the patient has improved clinically with regard to her respiratory status. 3. Continue Protonix 40 mg IV q.12 hours. 4. I will add Carafate suspension via nasogastric tube. 5. Monitor serial hemoglobin and hematocrit and transfuse as clinically indicated. cc: Ivan Lopez MD
[2018-06-07 18:12] LABS: ALLEN TEST YES; BE -1.9 mmoll (-3.0-3.0); BLOOD TYPE ARTERIAL; HCO3-(ACT) 23.5 mmoll (20.0-26.0); MODALITY VENTILATOR; O2(CT) 8.1 mL/dL (15.0-23.0); O2HB 97.4 % (95.0-99.0); PCO2(98.6) 24 mmHg (35-45); PO2(98.6) 130 mmHg (60-100); SAMPLE BLOOD; SAO2 100.1 % (95.0-100.0); SRATE 14 BPM; THB 5.7 g/dL (11.5-17.4); TVOL 500 mL; pH(98.6) 7.54 (7.35-7.45)
--- NOTE | 2018-06-07 18:53 | PULMONOLOGY PROGRESS NOTE ---
DATE: 06/07/2018 SUBJECTIVE: The patient remains on mechanical ventilator. She is poorly responsive to painful stimuli. She is on Diprivan due to biting of the endotracheal tube. OBJECTIVE: Vital Signs: The patient has been afebrile for the last 24 hours. Blood pressure 120/55, heart rate 99, respiratory rate 27. Oxygen saturation 99%. HEENT: Pupils are equal and reactive. Oropharynx is clear. Neck: Supple. Chest: Reveals occasional rhonchi bilaterally. Cardiac: S1, S2. Abdomen: Obese and soft, with positive bowel sounds. Extremities: Reveal trace to 1+ peripheral edema. LABORATORIES: Chest x-ray reveals bilateral infiltrates with shallow inspiration. No change. White blood count 16.6, hemoglobin 7.0, platelet count 390,000. Sodium 137, potassium 3.6, chloride 96, bicarbonate 18, BUN 25, creatinine 2.3. Arterial blood gas reveals a pH of 7.52, pCO2 of 31, PO2 of 163. The patient is over breathing the ventilator. Blood cultures have revealed Klebsiella pneumonia. IMPRESSION: 1. A 37-year-old with poorly controlled diabetes mellitus. 2. Bacterial pneumonia. 3. Acute renal failure. 4. Anoxic encephalopathy. 5. Status post cardiopulmonary arrest. 6. Acute hypoxemic respiratory failure. She has had little microsoft exchange architect the last 24 hours. RECOMMENDATIONS: 1. Continue ventilatory support. If mental status does not improve, then end of life discussions and tracheostomy discussions will need to be held with the patient's family. 2. Continue tube feeds. 3. Continue DVT prophylaxis. 4. Continue hemodialysis. 5. Consider CT scan of the brain. 6. Overall prognosis appears to be poor. cc: John Madison MD
[2018-06-07 22:18] LABS: CALCIUM 7.3 mg/dL (8.8-10.2); CREATININE 2.9 mg/dL (0.5-0.9); MAGNESIUM 2.2 mg/dL (1.5-2.7); PHOSPHORUS 6.3 mg/dL (2.7-4.5); POTASSIUM 3.4 mmol/L (3.5-5.1)
[2018-06-08] MEDS: DIPRIVAN 1% 1,000 MG/100 ML BOTTLE IV SCH ×10 (02:29→23:47)
[2018-06-08] MEDS: PROTONIX IV SCH ×2 (02:30→14:42)
[2018-06-08] MEDS: CARAFATE LIQUID GT SCH ×4 (02:30→19:56)
[2018-06-08 04:41] LABS: ALLEN TEST YES; BLOOD TYPE ARTERIAL; HCO3-(ACT) 20.3 mmoll (20.0-26.0); METHB 1.2 % (0.0-1.5); O2(CT) 12.9 mL/dL (15.0-23.0); O2HB 96.5 % (95.0-99.0); PCO2(98.6) 28 mmHg (35-45); PO2(98.6) 130 mmHg (60-100); SAMPLE BLOOD; SAO2 99.4 % (95.0-100.0); SRATE 14 BPM; THB 9.3 g/dL (11.5-17.4); TVOL 650 mL; pH(98.6) 7.41 (7.35-7.45)
[2018-06-08 04:43] LABS: MODALITY VENTILATOR
[2018-06-08 04:57] LABS: BASO# 0.09 X1000 (0.0-0.2); BASO% 0.6 % (0.0-0.8); EOS# 0.29 X1000 (0.0-0.7); EOS% 2.1 % (0.0-10.0); HEMATOCRIT 22.3 % (37.0-47.0); HEMOGLOBIN 7.3 g/dL (12.0-16.0); IMM GRAN# 1.77 X1000 (0.0-0.04); IMM GRAN% 12.6 % (0.0-0.5); LYMPH# 2.36 X1000 (1.2-3.4); LYMPH% 16.8 % (20.5-51.1); MCH 26.1 PG (27-31); MCHC 32.7 g/dL (33-37); MCV 79.6 FL (81-99); MONO# 1.07 X1000 (0.11-0.59); MONO% 7.6 % (1.7-9.3); MPV 9.5 FL (7.4-10.4); NEUT# 8.47 X1000 (1.4-6.5); NEUT% 60.3 % (42.2-75.2); PLT 397 X1000 (130-400); WBC 14.05 X1000 (4.8-10.8)
[2018-06-08] MEDS: 1/2 NS 1,000 ML IV SCH ×2 (05:06)
[2018-06-08 05:30] LABS: MAGNESIUM 2.4 mg/dL (1.5-2.7); PHOSPHORUS 7.3 mg/dL (2.7-4.5); POTASSIUM 3.4 mmol/L (3.5-5.1)
[2018-06-08] MEDS: HUMULIN R SUBQ SCH ×4 (06:05→20:07)
--- NOTE | 2018-06-08 06:38 | Diag Imaging Result Doc PS360 ---
EXAM: CHEST-1 VIEW HISTORY: SOB TECHNIQUE: Portable chest single view COMPARISON: 06/07/2018 FINDINGS: No change in the endotracheal tube or nasogastric tube. There are dense infiltrates in the mid and lower left lung with smaller infiltrates throughout the lungs. There is also small left pleural effusion. The appearance is similar to the prior study. IMPRESSION: No interval improvement. Electronically signed by Castillo Quiroz 06/08/2018 6:36 AM
[2018-06-08] MEDS ORDERED: NS 2,000 ML MISC PRN (07:10)
[2018-06-08 07:45] LABS: BANDS 6 % (0-1); LYMPHS 26 % (21-51); MONO 6 % (1-9); SEGS 60 % (42-75)
[2018-06-08] MEDS ORDERED: 1/2 NS 1,000 ML IV SCH (07:45)
[2018-06-08] MEDS: ROCEPHIN 2 GM in NS 50 ML IV SCH ×2 (07:47→19:56)
--- NOTE | 2018-06-08 08:23 | PROGRESS NOTE ---
DATE: 06/08/2018 SUBJECTIVE: This patient is still on mechanical ventilation and sedated. She will get dialysis today. Her hemoglobin dropped to 7 yesterday, and she was transfused with 1 unit. Today, the hemoglobin is 7.3, which is still low. I will ask for 2 more units and hopefully, we can give her the PRBCs during dialysis. OBJECTIVE: Vital Signs: Temperature 99, pulse 94, respiratory rate 23, blood pressure 120/67, oxygen saturation 98% on mechanical ventilation. HEENT: Head normocephalic. No trauma. PERRLA. Neck: Supple. No JVD. No masses. Central trachea. Chest: Coarse breath sounds at the bases. Otherwise, clear to auscultation. No wheezing. Abdomen: Soft, protuberant. Positive bowel sounds. Mildly distended. Extremities: 1+ pedal edema. No clubbing. No cyanosis. Neurological: The patient is on mechanical ventilation and sedated. LABORATORY: WBC 14, hemoglobin 7.3, hematocrit 22.3, platelet 397. Sodium 137, potassium 3.4, chloride 95, bicarbonate 16, BUN 36, creatinine 3. Glucose 123, calcium 8, magnesium 2.4, albumin 2.2. ASSESSMENT AND PLAN: 1. Septic shock. This patient has bilateral pneumonia and also bacteremia. Blood culture showed Klebsiella pneumoniae. Infectious Disease Department following this patient closely. At this moment, she is not on pressors, and she is tolerating the dialysis. 2. Bacteremia with a positive culture that showed Klebsiella pneumoniae. We will continue with antibiotics per Infectious Disease Department. 3. Bilateral pneumonia. Continue with antibiotics. 4. This patient had a cardiac arrest 7 days ago, with recovering spontaneous circulation 5 minutes after started the code. Since then, she has been on mechanical ventilation. Apparently, when we do a sedation vacation, this patient becomes agitated. She started beating the tube and grimacing. She is not following commands. I will ask for neurology department to evaluate this patient to see what they recommend to rule out possible anoxic brain injury. I have consulted Neurology Department to rule out Anoxic brain injury. Probably, we will need to do some brain images, but I will wait for recommendations. 5. Diabetic ketoacidosis, resolved. Continue with the same management. Blood sugar seems to be stable. 6. Gastrointestinal bleed. Her hemoglobin dropped yesterday to 7, and she was transfused with 1 unit of packed red blood cell. Today, the hemoglobin is 7.2, so I will give her 2 more units during dialysis. 7. Acute kidney injury without recovery so far. This patient has been on dialysis. The urine output is still low. Nephrology on board. She is due for dialysis today. 8. Hypophosphatemia, resolved. 9. Hypokalemia, stable. Potassium is 3.4 today. 10. Medical noncompliance, aware. Hemoglobin A1c 13 upon admission. 11. Anemia with borderline low mean corpuscular volume. Iron level is low, but ferritin is 225. For now, we will monitor and transfuse as needed like today. It looks like the prognosis is poor. I will ask Neurology Department to evaluate this patient to rule out anoxic brain injury. Probably, we will need to get some images of the brain but I will wait for Neurology to see the patient first. After their evaluation, I will try to talk to the family. CRITICAL CARE TIME: 35 minutes. cc: Ivan Lopez MD
[2018-06-08 09:33] LABS: HEPATITIS PROFILE ACUTE SEE COMMENTS
--- NOTE | 2018-06-08 10:12 | INFECTIOUS DISEASE PROGRESS NO ---
DATE: 06/08/2018 PRESENT ILLNESS: The patient has a Klebsiella bacteremia, which I think is secondary to a bilateral Klebsiella pneumonia. MEDICATIONS: The patient is on the third day of Rocephin. PHYSICAL EXAMINATION: Vital Signs: Temperature 98.6 degrees, pulse 105, respirations 26, blood pressure 156/83. General: This is an obese, young female. She is intubated and in renal failure, and is on hemodialysis. Head, Eyes, Ears, Nose, Throat: There is no drainage from the nose or ears. She did not respond to verbal stimuli. Neck: No stiffness. Lungs: Clear to auscultation. Cardiovascular: Heart rate is regular. Abdomen: Soft and nontender. In the right groin, the patient has a dialysis catheter in place. The site is not erythematous or draining. LAB AND X-RAY: The patient's CBC shows a white count of 14,050, hemoglobin 7.3 , and platelet count 397,000. Blood gases show a pH of 7.41, a PO2 of 130, and a pCO2 of 28. Hepatitis panel is nonreactive. Repeat blood cultures are sterile. Urine culture sterile. Sputum grew normal emmanuelle. Chest x-ray shows bilateral infiltrates. ASSESSMENT AND PLAN: The patient has klebsiella bacteremia secondary to klebsiella pneumonia. I will continue Rocephin treatment for atleast 2 weeks. COMORBIDITIES: The patient had a cardiac arrest. She has morbid obesity, acute kidney injury, and she is also diabetic. cc: Juan Engle MD MTDD
[2018-06-08] MEDS: BASAGLAR SUBQ SCH (11:01)
[2018-06-08] MEDS ORDERED: INSULIN PEN NEEDLES ONE (11:04)
--- NOTE | 2018-06-08 12:32 | NEPHROLOGY PROGRESS NOTE ---
DATE: 06/08/2018 TIME SEEN: 0725. SUBJECTIVE: Ms. Cedeno is resting quietly, ventilatory support. She remains on sedation. OBJECTIVE: Vital Signs: Temperature 99, blood pressure 144/78, heart rate 96, respirations 26. She is on 40% FIO2. Her last recorded saturation is 93%. She has had 3796 in, 235 out to Morse catheter. Patient remains 15 L positive. Labs: Sodium 137, potassium 3.4, chloride 95, CO2 16, BUN 36, creatinine 3, glucose 123, anion gap of 26, calcium is 8, phosphorus 7.3 , magnesium 2.4. Patient had an albumin ordered this a.m. of 2.2. White count 14.05, hemoglobin 7.3, hematocrit 22.3 with a platelet count of 397,000. ABGs: pH 7.41, CO2 28, pO2 130, bicarb 20.3 on 40%. General: This is a 37-year-old white female resting quietly in bed. She is ventilator dependent with sedation. She remains on pressor support. HEENT: Normocephalic, atraumatic. Mucous membranes are dry. She has oral ET tube in place. Neck: Supple. Trachea midline. Unable to discern JVD. Cardiovascular: Regular rate and rhythm. Unable to appreciate any murmur or gallop. Lungs: Have coarse breath sounds bilateral. Abdomen: Soft, nontender , positive bowel sounds, hypoactive noted secondary to body habitus. Genitourinary: Not inspected. She has minimal urine out with assistance needed from dialysis. Extremities: She has 2 + lower extremity edema. Skin: Warm and dry. No rashes or lesions on the anterior surface. Posterior not inspected. ASSESSMENT AND PLAN: 1. Acute kidney injury secondary to cardiac arrest and shock. Patient continues in fluid volume overload. We will plan for sustained low efficiency dialysis today. We will place her on 8 hours, 4 K bath, 27 bicarb. We will attempt to pull 6 L for ultrafiltration as tolerated. 2. Electrolytes and acid-base balance. Patient remains acidotic with correction on dialysis. 3. Anemia. This remains low. We will plan for transfusion of 2 units of packed red blood cells, per request of Dr. Jones, while on dialysis. 4. Bacteremia. Primary care is following. 5. Hypotension. Patient remains on pressor support. I would to thank you for allowing us to follow with this patient. Dictated by Lorrie M. Garcia, PERSONALIZED LIVING ASSISTANT for Alejandro Corona MD Face to face encounter, data reviewed, discussed with Kendra Garcia on 06/08/18. I agree with the above assessment and plan of care. cc: PATRICIA Griffin MD [facility]
[2018-06-08] MEDS: OFIRMEV 1000 MG/ISOTONIC SOLN 1,000 MG/100 ML BOTTLE IV PRN (14:42)
--- NOTE | 2018-06-08 16:14 | CONSULTATION ---
DATE OF CONSULTATION: 06/08/2018 REASON FOR CONSULTATION: Question of anoxic injury. HISTORY OF PRESENT ILLNESS: This is a 37-year-old female with uncontrolled diabetes and morbid obesity. She was admitted on 06/01/2018 with complaints of 4-day history of nausea and vomiting as well as fever as high as 104.3. She was admitted and diagnosed with diabetic ketoacidosis and pneumonia as well as sepsis from Klebsiella. On 06/02/2018, she had a cardiac arresting lasting 5 minutes. She was intubated and sedated. Some of the blood pressures this hospitalization have ranged 90s systolic over 30s to 60s diastolic, less often 80s and rare 70s systolic. These have been intermittent but more sustained on 06/06/2018. She sustained acute kidney injury and has been receiving sustained low efficiency dialysis. Apparently during sedation holdings, she has not been able to wake up enough to follow commands, but nurse reports she does wake up and gets agitated, using her extremities at least against gravity and going for her ETT. Also noted on the labs are elevated AST and ALT in the 50s. PAST MEDICAL HISTORY: Uncontrolled diabetes. Her A1c was 13. Morbid obesity, noncompliance, 3 sections. FAMILY HISTORY: Unobtainable due to the patient being intubated and sedated. SOCIAL HISTORY: No tobacco, alcohol or drugs. She is . 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 ALLERGIES: Listed to penicillin, morphine, Bactrim. HOME MEDICATIONS: Apparently metformin, though she was not compliant with this and was not checking her blood sugars. REVIEW OF SYSTEMS: Unobtainable due to the patient being intubated and sedated. PHYSICAL EXAMINATION: Vital signs: Temperature is 100.4, blood pressure current 94/58, pulse 110s to 120s. She is breathing over the vent. Sedation was held for approximately for 5 minutes for the examination. Ms. Cedeno is supine in bed, intubated on mechanical ventilation. She grimaces to sternal rub. Does not follow commands. Does not open eyes and regard. Pupils are equal, 3 mm both eyes and sluggish bilaterally. Gaze is conjugate and forward. There is horizontal eye movement with passive head turning. No consistent blink to threat. Face symmetric appearing with equal grimace. Withdraws right upper extremity to noxious stimuli. Less withdraw of the left upper extremity to noxious stimuli. Later I did see her spontaneously lift her right upper extremity against gravity. Again, nurse notes that she does become more agitated, moving her extremities when sedation is held for about 20 minutes. She grimaces and slightly flexes the knees/hips to noxious lower extremity stimuli bilaterally. Tone is symmetric. No clonus. Plantar response is silent. DIAGNOSTIC DATA: There is no cranial imaging for review. White count is 14, hemoglobin 7.3, hematocrit 22.3. Normal sodium. BUN is 36, creatinine 3, blood sugar is 130s to 170s recently. Calcium 8, phosphorus 7.3, normal magnesium. AST is 56, ALT is 42, alkaline phosphatase 147. Hepatitis panel was nonreactive. Blood cultures with Klebsiella. ASSESSMENT AND PLAN: 1. Global encephalopathy consistent with pharmacologic sedation. Likely multifactorial with additional contributions from sepsis and ISAEL. Cannot rule out underlying cerebral insult. Reports of purposeful or semipurposeful activity during relatively brief sedation breaks is reassuring. 2. Status post in-hospital cardiac arrest on 06/02/2018, duration of 5 minutes. 3. Poorly controlled diabetes with A1c of 13. 4. Hypoxemic respiratory failure on mechanical ventilation and sedation. 5. Acute renal failure, receiving SLED. 6. Klebsiella pneumonia with sepsis. PLAN: Recommend obtaining noncontrasted CT of the head once able. I have ordered this. She is currently on sustained low efficiency dialysis at my time at the bedside. Continue treating her underlying active medical conditions and monitoring for signs of improvement. I would limit sedation as much as possible, as lingering sedation is likely a large contributing factor to her examination. If she does not improve, I would order a routine EEG. Her sedation would need to be held for that study. cc: Michelle Ledesma MD [facility]
[2018-06-08 16:45] LABS: HEMATOCRIT 33.4 % (37.0-47.0); HEMOGLOBIN 10.5 g/dL (12.0-16.0)
[2018-06-08] MEDS: TYLENOL PO PRN (19:56)
[2018-06-09] MEDS: SODIUM CHLORIDE 0.9% INJ SCH (01:13)
[2018-06-09] MEDS: CARAFATE LIQUID GT SCH ×4 (01:13→20:10)
[2018-06-09] MEDS: TYLENOL PO PRN (01:13)
[2018-06-09] MEDS: PROTONIX IV SCH ×2 (01:13→13:20)
[2018-06-09] MEDS: DIPRIVAN 1% 1,000 MG/100 ML BOTTLE IV SCH ×11 (01:21→21:58)
[2018-06-09] MEDS: 1/2 NS 1,000 ML IV SCH ×2 (03:59→22:00)
[2018-06-09 04:47] LABS: ALLEN TEST YES; BE -16.3 mmoll (-3.0-3.0); BLOOD TYPE ARTERIAL; HCO3-(ACT) 12.2 mmoll (20.0-26.0); METHB 1.2 % (0.0-1.5); O2(CT) 12.8 mL/dL (15.0-23.0); O2HB 96.8 % (95.0-99.0); PCO2(98.6) 21 mmHg (35-45); PO2(98.6) 165 mmHg (60-100); SAMPLE BLOOD; SAO2 99.5 % (95.0-100.0); SRATE 14 BPM; THB 9.1 g/dL (11.5-17.4); TVOL 650 mL; pH(98.6) 7.25 (7.35-7.45)
[2018-06-09 04:48] LABS: MODALITY VENTILATOR
[2018-06-09 05:22] LABS: BASO# 0.29 X1000 (0.0-0.2); BASO% 1.4 % (0.0-0.8); EOS% 0.5 % (0.0-10.0); HEMATOCRIT 30.2 % (37.0-47.0); HEMOGLOBIN 9.3 g/dL (12.0-16.0); IMM GRAN# 1.92 X1000 (0.0-0.04); IMM GRAN% 9.4 % (0.0-0.5); LYMPH# 2.59 X1000 (1.2-3.4); LYMPH% 12.6 % (20.5-51.1); MCH 26.6 PG (27-31); MCHC 30.8 g/dL (33-37); MCV 86.5 FL (81-99); MONO# 1.94 X1000 (0.11-0.59); MONO% 9.5 % (1.7-9.3); MPV 9.8 FL (7.4-10.4); NEUT# 13.68 X1000 (1.4-6.5); NEUT% 66.6 % (42.2-75.2); PLT 408 X1000 (130-400); RBC 3.49 XMIL (4.2-5.4); RDW 17.2 % (11.5-14.5); WBC 20.52 X1000 (4.8-10.8)
[2018-06-09 05:44] LABS: LYMPHS 10 % (21-51); MONO 4 % (1-9); SEGS 78 % (42-75)
[2018-06-09 05:53] LABS: ALB/GLOB RATIO 0.6; ALBUMIN 2.4 g/dL (3.5-5.0); CALCIUM 8.8 mg/dL (8.8-10.2); CREATININE 2.5 mg/dL (0.5-0.9); POTASSIUM 4.8 mmol/L (3.5-5.1); PREALBUMIN 24.8 mg/dL (20-40); TOTAL BILIRUBIN 0.22 mg/dL (0.20-1.00); TOTAL PROTEIN 6.7 g/dL (6.3-8.3)
[2018-06-09] MEDS: HUMULIN R SUBQ SCH (06:18)
--- NOTE | 2018-06-09 06:41 | Diag Imaging Result Doc PS360 ---
CHEST-1 VIEW - 06/09/2018 INDICATION: SOB COMPARISON: 06/08/2018 FINDINGS: Support tubes are stable. There has been improvement in the hazy infiltrates bilaterally, left greater than right. Grossly stable cardiomegaly. No large pleural effusion. IMPRESSION: Improvement in the hazy alveolar infiltrates bilaterally. Electronically signed by Yosi Rosas 06/09/2018 6:39 AM
[2018-06-09] MEDS: BASAGLAR SUBQ SCH (08:22)
[2018-06-09] MEDS: ROCEPHIN 2 GM in NS 50 ML IV SCH (08:22)
--- NOTE | 2018-06-09 09:08 | Diag Imaging Result Doc PS360 ---
EXAM: CT HEAD W/O CONTRAST INDICATION: encephalopathy. s/p cardiac arrest TECHNIQUE: This exam was performed using automated exposure control, adjustment of mA or kV according to patient size, and/or use of iterative reconstruction technique. COMPARISON: None. FINDINGS: There is no definite acute infarct given the limited sensitivity of CT versus MRI. There is no discrete intracranial mass, mass effect, or intracranial hemorrhage. There is a right mastoid air cell effusion and right middle ear effusion. There is a small right maxillary sinus mucus retention cyst. Surrounding soft tissues and bony structures are essentially unremarkable, otherwise. IMPRESSION: No evidence of acute intracranial pathology. Electronically signed by Cody Green 06/09/2018 9:06 AM
--- NOTE | 2018-06-09 10:36 | PROGRESS NOTE ---
DATE: 06/09/2018 SUBJECTIVE: Ms. Cedeno was admitted on 06/01/2018. No primary care physician. She came in with nausea and vomiting. A 37-year-old female with history of apparent uncontrolled diabetes. She presented to the emergency room with nausea and vomiting since the previous . She denied any abdominal pain. No diarrhea but did report maximum temperature of 104 degrees, and she had been a little short of breath. In the emergency room, her white count was 23,000. Her chemistry is consistent with diabetic ketoacidosis, suspect possible infection with pneumonia and sepsis. Medical noncompliance put on diabetic ketoacidosis protocol. Sepsis secondary to pneumonia. Community-acquired pneumonia. Elevated liver function tests. The patient has a history of alcohol use. History of drug use. No history of hepatitis. Hepatitis panel will be checked and, of course, his acetaminophen level and salicylate and then some underlying anemia. Infectious Disease was asked to see her at 1:22. The patient had bilateral pneumonia, positive blood cultures for gram-negative rods. Suspect pneumonia due to aspiration developed bacteremia from pneumonia. She has an area in the right axilla that was reddish and pinkish color which thought could be an infection or maybe could be Candidiasis. The patient had a cardiac arrest on the morning of 06/02/2018 resuscitated from it. 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 Nephrology was involved. Acute kidney injury. Follow up in multifactorial diabetic ketoacidosis. Create creatinine changed from 1.3 to 1.2. Creatinine was minimally changed, but I think baseline was 1.2. She had 1.3. Electrolytes: Potassium was 1.8. Received some phosphorus, magnesium, and potassium, I believe, and has underlying acidosis. She received 2 amps of bicarb. It was felt that she had possible sepsis. She is intubated this morning and under sedation. OBJECTIVE: Vital Signs: Temperature 98.1, pulse 96, respirations 24, blood pressure 101/81. Eyes: Pupils are equal and round. Lungs are clear anterolateral. Cardiovascular regular rate without murmur or S3. Abdomen is soft. Skin is warm and dry. Urine output is 1200 mL. LABORATORY DATA: White count 20,000 which is elevated from yesterday at 14,000; it was 20,520. Hematocrit is 30, hemoglobin 9.3, platelet count 408,000. Sodium 137, potassium 4.8, chloride 196. BUN 19, creatinine 2.5 which has come down from 3.0 yesterday. ASSESSMENT AND PLAN: Note that chest x-ray from this morning showed improvement in hazy alveolar infiltrates bilaterally. CT of the head without contrast done yesterday: No evidence of acute disease. ASSESSMENT AND PLAN: 1. Global encephalopathy consistent with pharmacologic sedation likely multifactorial and additional contributions from sepsis and acute kidney injury. Dr. Rashid is following. Cannot rule out a cerebral insult. CT scan though without contrast unremarkable. 2. Status post in-hospital cardiac arrest on 06/02/2018 duration was 5 minutes. Possible anoxic injury. 3. Poorly controlled diabetes mellitus type 2. A1c was 13. 4. Hypoxemic respiratory failure on mechanical ventilation with sedation. Continue to try to wean. 5. Acute renal injury. Receiving sustained low-efficiency dialysis therapy as needed, but renal function seems to be improving. 6. Klebsiella pneumonia with sepsis. I have reviewed her orders. I do not see any change. Electrolytes seem to have improved. cc: Stanley Dexter MD
--- NOTE | 2018-06-09 10:41 | NEPHROLOGY PROGRESS NOTE ---
DATE: 06/09/2018 SUBJECTIVE: She remains on ventilatory support. OBJECTIVE: Vital Signs: Temperature 98.9 degrees, blood pressure 117/70, heart rate 98, respirations are 27. She is on 40% FiO2. Last recorded saturation 100%. She has had 3001 in, 6160 out with 6 L off of dialysis yesterday. LABORATORY DATA: Sodium 137, potassium 4.8, chloride 96, CO2 of 9. BUN 19, creatinine 2.5, glucose 175. Her anion gap is 32, calcium 8.8, albumin 2.4. White count 20.5, hemoglobin 9.3, hematocrit 30.2 with a platelet count of 408,000. ABGs: pH 7.25, CO2 of 21, PO2 of 165. Bicarb 12.2. This is on 40% with a lactate of 0.8. Acetone is currently pending. The patient had a CT of the head yesterday without contrast showing no evidence of acute pathology. Acetone this a.m. has resulted as moderate. PHYSICAL EXAMINATION: This is a 37-year-old white female currently resting quietly in bed, ventilatory support with sedation. HEENT: Normocephalic, atraumatic. Conjunctiva is pale. She has ISIAH. Mucous membranes are dry. Neck is supple. Trachea in midline. Unable to determine JVD. Cardiovascular: She is regular rate and rhythm. She is occasionally tachycardic and tachypneic. Unable to appreciate any murmur or gallop. Lungs: Coarse breath sounds bilaterally. Equal excursion with ventilatory support. Abdomen is large, obese, nontender. Positive bowel sounds, hypoactive. Genitourinary: Not inspected. Minimal urine out. Morse catheter remains in place. Extremities continue with 2+ lower extremity edema. She does have some wrinkles in her feet. Skin is warm and dry. No rashes or lesions on the anterior surface, posterior not inspected. Neurological as above. ASSESSMENT AND PLAN: 1. Acute kidney injury secondary to cardiac arrest in shock. The patient continues with fluid volume overload. We dialyzed yesterday for 6 L. We will plan for sustained low-efficiency dialysis again in the a.m. to assist with her fluid volume overload. 2. Electrolytes. These were stable today, again, with correction on dialysis. 3. Acid-base balance. The patient has a wide anion gap. She has a moderate acetone. More than likely, her metabolic acidosis is secondary to her anion gap and her diabetic ketoacidosis. May also want to consider Tylenol source. 4. Bacteremia, followed by the primary care. She is on renal dosed antibiotics. 5. Hypotension. Patient remains on pressor support. I would like to thank you for allowing us to follow with this patient. Dictated by PATRICIA Griffin for Alejandro Coorna MD Face to face encounter, data reviewed, discussed with Kendra Garcia on 06/09/18. I agree with the above assessment and plan of care. cc: PATRICIA Griffin MD [facility]
[2018-06-09] MEDS ORDERED: HUMULIN R 100 UNIT in NS 99 ML SUBQ SCH (10:44)
[2018-06-09] MEDS ORDERED: D10W 1,000 ML IV PRN (10:44)
[2018-06-09] MEDS ORDERED: HUMULIN R IV ONE (10:45)
[2018-06-09] MEDS ORDERED: SODIUM BICARBONATE 8.4% 100 MEQ in D5W 500 ML IV PRN (10:47)
[2018-06-09] MEDS ORDERED: SODIUM PHOSPHATE 30 MMOL in NS 250 ML IV PRN (10:48)
[2018-06-09] MEDS ORDERED: MAGNESIUM SULFATE 2 GM/S.W.I. 2 GM/50 ML IVPB IV PRN (10:50)
[2018-06-09] MEDS: MERREM 1 GM in NS 50 ML IV SCH ×2 (11:47→21:59)
[2018-06-09 11:48] LABS: ALLEN TEST YES; BE -14.4 mmoll (-3.0-3.0); BLOOD TYPE ARTERIAL; HCO3-(ACT) 13.7 mmoll (20.0-26.0); METHB 1.3 % (0.0-1.5); O2(CT) 13.1 mL/dL (15.0-23.0); O2HB 95.9 % (95.0-99.0); PCO2(98.6) 25 mmHg (35-45); PO2(98.6) 103 mmHg (60-100); SAMPLE BLOOD; SRATE 14 BPM; THB 9.6 g/dL (11.5-17.4); TVOL 650 mL; pH(98.6) 7.26 (7.35-7.45)
[2018-06-09 11:51] LABS: MODALITY VENTILATOR
[2018-06-09 11:53] LABS: CALCIUM 8.7 mg/dL (8.8-10.2); CREATININE 2.7 mg/dL (0.5-0.9); MAGNESIUM 2.4 mg/dL (1.5-2.7); PHOSPHORUS 6.9 mg/dL (2.7-4.5); POTASSIUM 4.9 mmol/L (3.5-5.1)
--- NOTE | 2018-06-09 12:00 | INFECTIOUS DISEASE PROGRESS NO ---
DATE: 06/09/2018 PRESENT ILLNESS: Ms. Cedeno has a Klebsiella bacteremia most likely secondary to her bilateral pneumonia. There is also a progressive leukocytosis. MEDICATIONS: Today is day 4 of Rocephin 2 g IV every 12 hours, which we will change today. PHYSICAL EXAMINATION: Vital Signs: Temperature is 97.3 degrees, pulse rate 92 , respiratory rate 27, blood pressure 108/73, O2 saturation is 97% on 40% FiO2 on the mechanical ventilator. General: This is an obese, critically ill-appearing, middle-aged female. She is lying in the bed sedated on mechanical ventilator. HEENT: Normocephalic. Oral mucous membranes are pink and moist. Conjunctivae are pale. Neck: Supple. Trachea is midline. Respiratory : Lung sounds have some mild rhonchi bilaterally, diminished in the bases. Cardiovascular: Heart rate and rhythm are regular. Normal sinus rhythm on the monitor. Pedal and radial pulses are palpable bilaterally. Abdomen: Soft. Obese. Bowel sounds are active. There is an NG tube in place and tube feedings are infusing. There is a dialysis catheter to the right groin, without edema or erythema to the site. LABORATORY AND X-RAY: Today, her white count is 20.52, hemoglobin 9.3, platelet count 408,000. This morning on a 40% FiO2, her pH was 7.25, pCO2 21, PO2 165, HC03 12.2. Creatinine 2.5. GFR 21. AST 26, ALT 26, alkaline phosphatase 237. She previously grew Klebsiella pneumoniae in her blood. Most recent blood cultures have shown no growth. Chest x-ray today shows improvement in the hazy alveolar infiltrates bilaterally. ASSESSMENT AND PLAN: Ms. Cedeno has a Klebsiella bacteremia which is being treated with Rocephin. Unfortunately, her white count has elevated, and she had a temperature of 101.3 degrees last night. We will go ahead and recheck her blood cultures, sputum, and urine culture. We will also discontinue Rocephin and change her to Zyvox 600 mg IV every 12 hours and meropenem 1 g IV every 12 hours as a renally modified dose. These will provide more broad- spectrum coverage, but will also continue to treat the Klebsiella bacteremia. These plans have been discussed with and recommended by Dr. Engle. COMORBIDITIES: Comorbidities for Ms. Cedeno include cardiac arrest on this admission, obesity, acute kidney injury with hemodialysis, and diabetes mellitus. Dictated by PATRICIA Ward for Juan Engle MD This chart was documented by, PATRICIA Ward and accurately reflects the services performed, treatment plan and medical decisions as attested by the providers signature Juan Engle MD. cc: Juan Engle MD [facility]
[2018-06-09] MEDS ORDERED: HUMULIN R 100 UNIT in NS 99 ML IV SCH (12:18)
[2018-06-09] MEDS: D5 1/2 NS 1,000 ML IV SCH (13:20)
[2018-06-09] MEDS: ZYVOX 600 MG/D5W 600 MG/300 ML IVPB IV SCH (13:20)
[2018-06-09 15:03] LABS: CALCIUM 8.7 mg/dL (8.8-10.2); CREATININE 2.9 mg/dL (0.5-0.9); MAGNESIUM 2.3 mg/dL (1.5-2.7); PHOSPHORUS 6.6 mg/dL (2.7-4.5); POTASSIUM 4.1 mmol/L (3.5-5.1)
[2018-06-09 16:25] LABS: ALLEN TEST YES; BE -9.6 mmoll (-3.0-3.0); BLOOD TYPE ARTERIAL; HCO3-(ACT) 17.4 mmoll (20.0-26.0); METHB 0.7 % (0.0-1.5); O2(CT) 11.3 mL/dL (15.0-23.0); O2HB 95.8 % (95.0-99.0); PCO2(98.6) 27 mmHg (35-45); PO2(98.6) 82 mmHg (60-100); SAMPLE BLOOD; SAO2 98.7 % (95.0-100.0); SRATE 14 BPM; THB 8.3 g/dL (11.5-17.4); TVOL 650 mL; pH(98.6) 7.35 (7.35-7.45)
[2018-06-09 16:26] LABS: MODALITY VENTILATOR
[2018-06-09] MEDS: OFIRMEV 1000 MG/ISOTONIC SOLN 1,000 MG/100 ML BOTTLE IV PRN (17:48)
[2018-06-09 19:15] LABS: CALCIUM 8.4 mg/dL (8.8-10.2); MAGNESIUM 2.3 mg/dL (1.5-2.7); PHOSPHORUS 6.7 mg/dL (2.7-4.5); POTASSIUM 3.9 mmol/L (3.5-5.1)
[2018-06-09 21:19] LABS: ALLEN TEST YES; BE -9.5 mmoll (-3.0-3.0); BLOOD TYPE ARTERIAL; HCO3-(ACT) 17.5 mmoll (20.0-26.0); O2(CT) 13.1 mL/dL (15.0-23.0); O2HB 96.5 % (95.0-99.0); PCO2(98.6) 26 mmHg (35-45); PO2(98.6) 104 mmHg (60-100); SAMPLE BLOOD; SAO2 99.5 % (95.0-100.0); SRATE 14 BPM; THB 9.5 g/dL (11.5-17.4); TVOL 650 mL; pH(98.6) 7.36 (7.35-7.45)
[2018-06-09 21:20] LABS: MODALITY VENTILATOR
[2018-06-09 23:32] LABS: CALCIUM 8.7 mg/dL (8.8-10.2); CREATININE 3.2 mg/dL (0.5-0.9); MAGNESIUM 2.3 mg/dL (1.5-2.7); PHOSPHORUS 7.4 mg/dL (2.7-4.5); POTASSIUM 3.7 mmol/L (3.5-5.1)
[2018-06-10] MEDS: DIPRIVAN 1% 1,000 MG/100 ML BOTTLE IV SCH ×12 (00:12→22:38)
[2018-06-10 01:15] LABS: ALLEN TEST YES; BE -10.6 mmoll (-3.0-3.0); BLOOD TYPE ARTERIAL; HCO3-(ACT) 16.7 mmoll (20.0-26.0); METHB 0.8 % (0.0-1.5); O2(CT) 11.8 mL/dL (15.0-23.0); O2HB 96.8 % (95.0-99.0); PCO2(98.6) 27 mmHg (35-45); PO2(98.6) 109 mmHg (60-100); SAMPLE BLOOD; SAO2 99.6 % (95.0-100.0); SRATE 14 BPM; THB 8.5 g/dL (11.5-17.4); TVOL 650 mL; pH(98.6) 7.33 (7.35-7.45)
[2018-06-10 01:16] LABS: MODALITY VENTILATOR
[2018-06-10] MEDS: SODIUM CHLORIDE 0.9% INJ SCH ×2 (02:05→13:57)
[2018-06-10] MEDS: PROTONIX IV SCH ×2 (02:05→13:57)
[2018-06-10] MEDS: CARAFATE LIQUID GT SCH ×4 (02:05→20:28)
[2018-06-10] MEDS: ZYVOX 600 MG/D5W 600 MG/300 ML IVPB IV SCH ×2 (02:05→17:57)
[2018-06-10] MEDS: D5 1/2 NS 1,000 ML IV SCH ×2 (02:05→17:58)
[2018-06-10 04:36] LABS: ALLEN TEST YES; BE -11.4 mmoll (-3.0-3.0); BLOOD TYPE ARTERIAL; METHB 1.5 % (0.0-1.5); O2(CT) 11.9 mL/dL (15.0-23.0); PCO2(98.6) 27 mmHg (35-45); PO2(98.6) 126 mmHg (60-100); SAMPLE BLOOD; SRATE 14 BPM; THB 8.6 g/dL (11.5-17.4); TVOL 650 mL; pH(98.6) 7.31 (7.35-7.45)
[2018-06-10 04:37] LABS: MODALITY VENTILATOR
[2018-06-10 06:27] LABS: CALCIUM 8.9 mg/dL (8.8-10.2); CREATININE 3.3 mg/dL (0.5-0.9); MAGNESIUM 2.4 mg/dL (1.5-2.7); PHOSPHORUS 8.3 mg/dL (2.7-4.5); POTASSIUM 3.9 mmol/L (3.5-5.1)
[2018-06-10] MEDS ORDERED: NS 2,000 ML MISC PRN (06:27)
--- NOTE | 2018-06-10 06:28 | PROGRESS NOTE ---
DATE: 06/09/2018 SUBJECTIVE: No major overnight events. OBJECTIVE: Vital Signs: She is currently afebrile but had a T-max of 101.3. Blood pressure 113/68, pulse low 100s. Neurologic: Ms. Cedeno is supine in bed, intubated on mechanical ventilation. Her Propofol has been held approximately 5 minutes since the start of the examination. She raises her eyebrows and opens her eyes a little to noxious stimuli. She does not regard. She does not follow commands. Pupils are equal and reactive sluggishly to light. There is horizontal eye movement with passive head turning. Corneals intact. Today, there is reproducible blink to threat. Face is symmetric with equal grimace. She withdraws all extremities to noxious stimuli. There seems to be a slight delay with the right lower extremity. Later in the examination, she does spontaneously move both upper extremities antigravity and I also witnessed slight spontaneous movement of her lower extremities. Plantar response is silent. No clonus. DIAGNOSTIC DATA: Head CT performed this morning showed no acute intracranial findings. Her white count is trending up. BUN 27, creatinine 3.0 today. AST and ALT normalized today. ASSESSMENT AND PLAN: Remains global encephalopathy without definite focal features. This would be consistent with pharmacologic sedation but is likely multifactorial. Again, I cannot rule out an underlying anoxic injury, however, head CT was unremarkable and her exam during very brief pauses in sedation is reassuring. Would continue to work to limit sedation as much as possible. Continue treating her active medical issues and continue to follow clinically. If we do not begin to see some improvement, we can order routine EEG. Her sedation would need to be held. cc: Michelle Ledesma MD [facility]
[2018-06-10 08:09] LABS: ACETONE SERUM SMALL (NEGATIVE)
[2018-06-10 08:14] LABS: ALBUMIN 2.2 g/dL (3.5-5.0)
[2018-06-10 08:17] LABS: BASO# 0.06 X1000 (0.0-0.2); BASO% 0.4 % (0.0-0.8); CALCIUM 9.1 mg/dL (8.8-10.2); CREATININE 3.5 mg/dL (0.5-0.9); EOS# 0.25 X1000 (0.0-0.7); EOS% 1.8 % (0.0-10.0); HEMATOCRIT 27.3 % (37.0-47.0); HEMOGLOBIN 8.7 g/dL (12.0-16.0); IMM GRAN# 0.63 X1000 (0.0-0.04); IMM GRAN% 4.6 % (0.0-0.5); LYMPH# 1.51 X1000 (1.2-3.4); LYMPH% 11.1 % (20.5-51.1); MAGNESIUM 2.4 mg/dL (1.5-2.7); MCH 26.6 PG (27-31); MCHC 31.9 g/dL (33-37); MCV 83.5 FL (81-99); MONO# 0.92 X1000 (0.11-0.59); MONO% 6.7 % (1.7-9.3); MPV 9.9 FL (7.4-10.4); NEUT# 10.28 X1000 (1.4-6.5); NEUT% 75.4 % (42.2-75.2); PHOSPHORUS 8.6 mg/dL (2.7-4.5); PLT 381 X1000 (130-400); POTASSIUM 3.7 mmol/L (3.5-5.1); RBC 3.27 XMIL (4.2-5.4); RDW 17.1 % (11.5-14.5); WBC 13.65 X1000 (4.8-10.8)
[2018-06-10 08:32] LABS: BANDS 8 % (0-1); LYMPHS 6 % (21-51); MONO 4 % (1-9); SEGS 82 % (42-75)
[2018-06-10 08:47] LABS: ALLEN TEST YES; BE -13.1 mmoll (-3.0-3.0); BLOOD TYPE ARTERIAL; HCO3-(ACT) 14.7 mmoll (20.0-26.0); METHB 1.5 % (0.0-1.5); MODALITY VENTILATOR; O2(CT) 14.3 mL/dL (15.0-23.0); O2HB 95.8 % (95.0-99.0); PCO2(98.6) 26 mmHg (35-45); PO2(98.6) 117 mmHg (60-100); SAMPLE BLOOD; SAO2 98.7 % (95.0-100.0); SRATE 14 BPM; THB 10.5 g/dL (11.5-17.4); TVOL 650 mL; pH(98.6) 7.28 (7.35-7.45)
--- NOTE | 2018-06-10 09:08 | PROGRESS NOTE ---
DATE: 06/10/2018 SUBJECTIVE: Ms. Cedeno is about the same. Still intubated. Appears to be comfortable, but of course is under sedation. OBJECTIVE: Vital signs: Temp 97.6 degrees, pulse 86, respirations 21, blood pressure 130/67. Pupils: Equal and round. Lungs: Clear in all melendez. Cardiovascular: Regular rate without murmur or S3. Abdomen: Soft. Skin: Warm and dry. Urine output is 7.5 liters, I think that was with dialysis. ASSESSMENT AND PLAN: 1. Klebsiella bacteremia most likely secondary to bilateral pneumonia with leukocytosis. She is getting Rocephin 2 grams IV q.12 hours, and I think we will recheck blood cultures and urine cultures. Discontinued the Rocephin and start her on Zyvox 600 mg IV q.12 and meropenem 1 g IV q.12 to renally modified dose, to provide more broad-spectrum coverage, but continue to treat Klebsiella bacteremia. 2. Acute kidney injury secondary to cardiac arrest and shock. Patient continues with fluid volume overload. So, continue to dialyze. 3. Electrolytes appear stable. 4. Acid-base balance. Anion gap seem to increase, so I put her back on a diabetic ketoacidosis protocol. 5. Hypotension. Blood pressures appear to be doing better. 6. Respiratory failure. Continued attempts to try and wean her. REVIEW OF HER MEDICATIONS: I do not see any change. Right now, getting D5 one half normal and is run at 80 mL an hour, and she also has one running at 75 mL an hour for her DKA protocol. cc: Stanley Dexter MD
--- NOTE | 2018-06-10 09:15 | Diag Imaging Result Doc PS360 ---
EXAM: CHEST-1 VIEW 06/10/2018 HISTORY: SOB TECHNIQUE: AP portable at 0506 COMMENT: There is an NG tube which apparently passes below the diaphragm. There is a looped braided wire over the midline possibly within the esophagus. There is platelike atelectasis in the left lower lobe. There may be additional opacification in the left lower lobe more superiorly. IMPRESSION: Atelectasis versus pneumonia in the left lower lobe. Electronically signed by Michel Vogel 06/10/2018 9:12 AM
--- NOTE | 2018-06-10 09:32 | NEPHROLOGY PROGRESS NOTE ---
DATE: 06/10/2018 TIME SEEN: 0710 hours. SUBJECTIVE: Ms. Cedeno is resting quietly in bed, ventilator dependent. She is sedated. OBJECTIVE: Her most recent vital signs: Temperature 97.1 degrees, blood pressure 139/80, heart rate 91, respirations 22. She is on 40% FiO2. Last recorded saturation is 93% . She has had 4663 in and 115 out of the Morse catheter. PHYSICAL EXAMINATION: General: This is a 37-year-old white female, resting quietly in bed, ventilatory support with sedation. HEENT: Normocephalic, atraumatic. Conjunctivae pale. She has ISIAH. Mucous membranes are dry. Neck: Supple. Trachea midline. Unable to determine JVD. Cardiovascular: She is regular rate and rhythm. Tachycardic on the monitor. Unable to appreciate any murmur or gallop. S1, S2 noted. Lungs: Coarse breath sounds bilaterally. Equal excursion with ventilatory support. Abdomen: Large, obese, soft, nontender. Hypoactive bowel sounds noted. Genitourinary: Not inspected. Morse catheter is in place with minimal urine out. Extremities: Continues with trace to 1+ lower extremity edema. Integumentary : Skin is warm and dry. No rashes or lesions evident on the anterior surface. Patient does have some discoloration to her face and upper chest area with the appearance of ecchymosis. Neurological: As above. LABS: Sodium is 134, potassium 3.9, chloride 93, CO2 13, BUN 32, creatinine 3.3 , glucose 142, anion gap 28, calcium 8.9, phosphorus 8.3, magnesium 2.4. We have a pending albumin. Previous hemoglobin 9.3. Acetone is still pending. ABGs: The pH is 7.31, CO2 27, PO2 126, bicarbonate 16 on 40% ventilatory support. ASSESSMENT AND PLAN: 1. Acute kidney injury secondary to cardiac arrest and shock. Patient continues in fluid volume overload. We will plan for slow, low efficiency dialysis today. She is to dialyze on a 4 potassium bath 8 hours, 37 bicarbonate. We will attempt to pull 6 to 8 liters of ultrafiltration. 2. Electrolytes and acid-base balance. The patient appears to be in diabetic ketoacidosis, positive acetones, moderate yesterday. We are waiting for the labs this morning. She is now on an insulin drip. We will plan for correction of her bicarbonate also on dialysis. 3. Anemia. This is acceptable. 4. Respiratory failure. Patient remains on ventilatory support. 5. Bacteremia, followed by the primary care. Remains on renal-dosed antibiotics. 6. Hypotension. Pressor supports as needed per primary care. I would like to thank you for allowing us to follow with this patient. Dictated by PATRICIA Griffin for Alejandro Corona MD Face to face encounter, data reviewed, discussed with Kendra Garcia on 06/10/18. I agree with the above assessment and plan of care. cc: PATRCIIA Griffin MD [facility]
--- NOTE | 2018-06-10 09:46 | INFECTIOUS DISEASE PROGRESS NO ---
DATE: 06/10/2018 SUBJECTIVE: The patient has Klebsiella bacteremia and most likely a bilateral pneumonia. She has also developed progressive leukocytosis, the exact etiology of which is uncertain to me. MEDICATIONS: I switched the patient yesterday from Rocephin to a combination of Zyvox and meropenem in case the patient has developed a superinfection on the Klebsiella infection, she already had. OBJECTIVE: Vital Signs: Temperature is 97.6 degrees, pulse 86, respirations 21, blood pressure 130/67. General: This is an ill-appearing young female. She is intubated and sedated. Head/eyes/ears/nose/throat: Patient is intubated. There is no drainage from the nose or ears. Neck: No stiffness. Lungs: There were bilateral rhonchi. Cardiovascular: Heart rate is regular. Abdomen: Soft and nontender. Neurologic: Patient is sedated. She did not respond to verbal stimuli. There is no tremor. Extremities: The patient has a dialysis catheter in the right groin. The site is not erythematous or draining. LAB AND X-RAY: CBC shows a white count of 13,650, hemoglobin 8.7, and platelet count 381,000. Blood gases show a pH of 7.28, a pO2 of 117, pCO2 of 26, creatinine is 3.5. GFR is 15. Sputum, blood, and urine cultures are pending. Chest x-ray shows left lower lobe atelectasis versus pneumonia. ASSESSMENT AND PLAN: The patient had Klebsiella bacteremia and then presumably a pneumonia with it. She may have developed a superimposed infection in view of the fact that her white count is elevated. My plan is to continue Zyvox and meropenem, which was started yesterday. Rocephin has been discontinued. COMORBIDITIES: The patient had a cardiac arrest. She is obese. She has acute kidney injury and is on hemodialysis. The patient also has diabetes mellitus. cc: Juan Engle MD
[2018-06-10] MEDS ORDERED: TIGHT: 0.2 ML/HR FOR DIALYSIS MISC PRN (11:46)
[2018-06-10] MEDS ORDERED: HEPARIN IV PRN (11:46)
[2018-06-10 11:59] LABS: CALCIUM 8.6 mg/dL (8.8-10.2); CREATININE 2.3 mg/dL (0.5-0.9); PHOSPHORUS 5.1 mg/dL (2.7-4.5); POTASSIUM 3.8 mmol/L (3.5-5.1)
[2018-06-10 11:59] LABS: ALLEN TEST YES; BE -6.5 mmoll (-3.0-3.0); BLOOD TYPE ARTERIAL; HCO3-(ACT) 19.9 mmoll (20.0-26.0); METHB 1.4 % (0.0-1.5); O2(CT) 13.2 mL/dL (15.0-23.0); O2HB 96.1 % (95.0-99.0); PCO2(98.6) 27 mmHg (35-45); PO2(98.6) 105 mmHg (60-100); SAMPLE BLOOD; SAO2 99.3 % (95.0-100.0); SRATE 14 BPM; THB 9.6 g/dL (11.5-17.4); TVOL 650 mL; pH(98.6) 7.41 (7.35-7.45)
[2018-06-10 12:00] LABS: MODALITY VENTILATOR
--- NOTE | 2018-06-10 12:05 | PROGRESS NOTE ---
DATE: 06/10/2018 SUBJECTIVE: No major overnight events. OBJECTIVE: She has been afebrile recently. Blood pressure is 129/77, pulse 90s , and respirations 21. She is on the ventilator and breathing over the vent. Propofol was held 5 minutes before the start of my examination. She did eventually open her eyes to noxious stimuli. She does not regard or follow commands. Pupils are equal and sluggishly reactive to light. There is some horizontal eye movement with passive head turning. Corneal reflexes are intact. She again today has a reproducible blink to threat as the sedation is held a bit longer. She also today has some resistance to passive eye opening and blinks her eyes consistently when I touch her face there. Her face appears symmetrical to equal grimace. She withdraws all extremities to noxious stimuli. I also see her spontaneously move all of her extremities; the upper extremities at least 3 out of 5 and the lower extremities 2 out of 5. Plantar response is silent. No clonus. DIAGNOSTICS: White count is trending down again today to 13. Hemoglobin and hematocrit are also downtrending. BUN is 36 and creatinine 3.5 today. AST and ALT were normalized yesterday. ASSESSMENT AND PLAN: Global encephalopathy, multifactorial with a large contribution from pharmacologic sedation. Cannot rule out underlying anoxic injury, however, exam findings during very brief pauses of sedation are reassuring at this time. Would continue treatment of her medical conditions as you are doing and would continue to work on limiting sedation as much as possible. I believe her exam has shown some subtle improvement this week and so we can continue to monitor her clinically. If that changes a routine EEG should be considered. cc: MD ROX Harp
[2018-06-10] MEDS: MERREM 1 GM in NS 50 ML IV SCH ×2 (13:05→22:38)
[2018-06-10] MEDS: TYLENOL PO PRN (13:57)
[2018-06-10 16:19] LABS: CALCIUM 8.3 mg/dL (8.8-10.2); CREATININE 1.4 mg/dL (0.5-0.9); MAGNESIUM 1.9 mg/dL (1.5-2.7); PHOSPHORUS 2.8 mg/dL (2.7-4.5); POTASSIUM 3.9 mmol/L (3.5-5.1)
[2018-06-10 16:37] LABS: ALLEN TEST YES; BE -4.8 mmoll (-3.0-3.0); BLOOD TYPE ARTERIAL; HCO3-(ACT) 21.2 mmoll (20.0-26.0); METHB 1.3 % (0.0-1.5); MODALITY VENTILATOR; O2HB 96.1 % (95.0-99.0); PCO2(98.6) 29 mmHg (35-45); PO2(98.6) 114 mmHg (60-100); SAMPLE BLOOD; SRATE 14 BPM; THB 10.1 g/dL (11.5-17.4); TVOL 650 mL; pH(98.6) 7.42 (7.35-7.45)
[2018-06-10 19:38] LABS: CALCIUM 8.5 mg/dL (8.8-10.2); CREATININE 1.6 mg/dL (0.5-0.9); MAGNESIUM 1.8 mg/dL (1.5-2.7); PHOSPHORUS 2.5 mg/dL (2.7-4.5); POTASSIUM 3.9 mmol/L (3.5-5.1)
[2018-06-10 20:30] LABS: ALLEN TEST YES; BE -3.2 mmoll (-3.0-3.0); BLOOD TYPE ARTERIAL; HCO3-(ACT) 22.4 mmoll (20.0-26.0); METHB 1.5 % (0.0-1.5); MODALITY VENTILATOR; O2(CT) 12.1 mL/dL (15.0-23.0); O2HB 96.2 % (95.0-99.0); PCO2(98.6) 28 mmHg (35-45); PO2(98.6) 115 mmHg (60-100); SAMPLE BLOOD; SAO2 99.6 % (95.0-100.0); SRATE 14 BPM; THB 8.8 g/dL (11.5-17.4); TVOL 650 mL; pH(98.6) 7.46 (7.35-7.45)
[2018-06-10] MEDS: ZOFRAN IV PRN (20:45)
[2018-06-10] MEDS: HUMULIN R 100 UNIT in NS 99 ML IV SCH (22:39)
[2018-06-10 23:32] LABS: CALCIUM 8.7 mg/dL (8.8-10.2); CREATININE 1.9 mg/dL (0.5-0.9); MAGNESIUM 1.9 mg/dL (1.5-2.7); PHOSPHORUS 2.8 mg/dL (2.7-4.5); POTASSIUM 3.9 mmol/L (3.5-5.1)
[2018-06-11 00:18] LABS: ALLEN TEST YES; BE 0.5 mmoll (-3.0-3.0); BLOOD TYPE ARTERIAL; HCO3-(ACT) 25.3 mmoll (20.0-26.0); METHB 1.4 % (0.0-1.5); O2HB 95.7 % (95.0-99.0); PCO2(98.6) 34 mmHg (35-45); PO2(98.6) 126 mmHg (60-100); SAMPLE BLOOD; SAO2 98.9 % (95.0-100.0); SRATE 14 BPM; THB 8.7 g/dL (11.5-17.4); TVOL 650 mL; pH(98.6) 7.46 (7.35-7.45)
[2018-06-11 00:19] LABS: MODALITY VENTILATOR
[2018-06-11] MEDS: DIPRIVAN 1% 1,000 MG/100 ML BOTTLE IV SCH ×9 (00:58→23:26)
[2018-06-11] MEDS: CARAFATE LIQUID GT SCH ×5 (01:00→23:27)
[2018-06-11] MEDS: PROTONIX IV SCH ×2 (01:01→17:28)
[2018-06-11 04:25] LABS: CALCIUM 8.6 mg/dL (8.8-10.2); CREATININE 2.1 mg/dL (0.5-0.9); PHOSPHORUS 3.5 mg/dL (2.7-4.5); POTASSIUM 3.7 mmol/L (3.5-5.1)
[2018-06-11 05:14] LABS: ALLEN TEST YES; BE -0.4 mmoll (-3.0-3.0); BLOOD TYPE ARTERIAL; HCO3-(ACT) 24.6 mmoll (20.0-26.0); METHB 1.2 % (0.0-1.5); O2(CT) 15.4 mL/dL (15.0-23.0); O2HB 94.7 % (95.0-99.0); PCO2(98.6) 38 mmHg (35-45); PO2(98.6) 84 mmHg (60-100); SAMPLE BLOOD; SAO2 97.9 % (95.0-100.0); SRATE 14 BPM; THB 11.5 g/dL (11.5-17.4); TVOL 650 mL; pH(98.6) 7.41 (7.35-7.45)
[2018-06-11 05:15] LABS: MODALITY VENTILATOR
[2018-06-11] MEDS: ZYVOX 600 MG/D5W 600 MG/300 ML IVPB IV SCH ×2 (05:39→17:28)
[2018-06-11] MEDS ORDERED: NS 2,000 ML MISC PRN ×2 (06:54→07:40)
[2018-06-11] MEDS ORDERED: HEPARIN IV ONE (07:41)
[2018-06-11 08:07] LABS: CALCIUM 8.5 mg/dL (8.8-10.2); CREATININE 2.3 mg/dL (0.5-0.9); MAGNESIUM 2.1 mg/dL (1.5-2.7); PHOSPHORUS 4.3 mg/dL (2.7-4.5); POTASSIUM 3.9 mmol/L (3.5-5.1)
--- NOTE | 2018-06-11 08:20 | Diag Imaging Result Doc PS360 ---
CHEST-1 VIEW - 06/11/2018 INDICATION: SOB COMPARISON: 06/10/2018 FINDINGS: Support lines and tubes are stable. Stable ill-defined infiltrates or edema bilaterally. No pneumothorax or large pleural effusion. IMPRESSION: No change from prior. Electronically signed by Yosi Rosas 06/11/2018 8:18 AM
[2018-06-11 09:24] LABS: ALLEN TEST YES; BE -1.9 mmoll (-3.0-3.0); BLOOD TYPE ARTERIAL; HCO3-(ACT) 23.4 mmoll (20.0-26.0); METHB 1.3 % (0.0-1.5); O2HB 95.9 % (95.0-99.0); PCO2(98.6) 35 mmHg (35-45); PO2(98.6) 108 mmHg (60-100); SAMPLE BLOOD; SAO2 99.1 % (95.0-100.0); SRATE 14 BPM; THB 12.5 g/dL (11.5-17.4); TVOL 650 mL; pH(98.6) 7.41 (7.35-7.45)
[2018-06-11 09:27] LABS: MODALITY VENTILATOR
--- NOTE | 2018-06-11 10:21 | PROGRESS NOTE ---
DATE: 06/11/2018 SUBJECTIVE: Ms. Cedeno has had sedation. They have held her sedation and she seems to be waking up and responding, moving and following simple commands. PHYSICAL EXAMINATION: Vital Signs: Temperature 98.4 degrees, pulse 102, respirations 17, blood pressure 106/60. HEENT: Pupils are equal and round. Lungs: Clear in all lung melendez. Cardiovascular Examination: Regular rhythm and rate without murmur or S3. Abdomen: Soft. Skin: Warm and dry. Is and Os: Urine output 7 L. DIAGNOSTIC DATA: Chest x-ray from this morning, no change from prior. Support lines and tubes stable. Stable, ill-defined infiltrates, edema bilaterally. ASSESSMENT AND PLAN: 1. Global encephalopathy, multifactorial, large contribution from pharmacologic sedation. Cannot rule out an underlying anoxic injury. See how we do with pauses in sedation. 2. Klebsiella bacteremia, likely bilateral pneumonia, has developed progressive leukocytosis. The patient is on Zyvox and meropenem. 3. Acute kidney injury secondary to cardiac arrest and shock. Continue fluid volume. Continue dialysis as needed. Dr. Corona is following. She received some bicarbonate as well. think they pulled off a little over 6 L yesterday. 4. Electrolytes and acid base, seem to be stable. 5. Diabetic ketoacidosis with acidosis, on the diabetic ketoacidosis protocol. 6. Respiratory failure. Continue to try and wean off the ventilator. Improve her volume status. 7. Hypotension. Blood pressures seemed to be doing better. LABORATORY DATA: Review of lab from yesterday: White count had come down to 13,650, hematocrit 27, platelet count 381,000. Today, electrolytes, sodium 130, potassium 3.9, chloride 92, BUN 19, creatinine 2.3. REVIEW OF HER ORDERS: I do not see any change. cc: Stanley Dexter MD
--- NOTE | 2018-06-11 10:50 | INFECTIOUS DISEASE PROGRESS NO ---
DATE: 06/11/2018 PRESENT ILLNESS: The patient appears to have bilateral pneumonia. MEDICATIONS: Two days ago, I switched the patient from Rocephin to a combination of Zyvox and meropenem. Initially, the patient had a Klebsiella bacteremia pneumonia but when her white count went up, it may be because she developed a superinfection. PHYSICAL EXAMINATION: Vital Signs: Temperature is 98.4, pulse 102, respirations 17, blood pressure 106/60. General: This is an ill-appearing, young female. She is intubated and sedated. Head, Eyes, Ears, Nose, and Throat: Orotracheal tube is in place. There is no drainage from the nose or the ears. Neck: No stiffness. Lungs: Clear to auscultation. Cardiovascular: Regular heart rate. Abdomen: Soft and nontender. Extremities: In the right groin, the patient has a dialysis catheter. There is no surrounding erythema at the catheter site. Neurologic: The patient is sedated. However, she did follow requests to squeeze my hand and also to move her extremities. Integument: No rash noted. LAB AND X-RAY: Chest x-ray shows bilateral infiltrates and/or edema. The patient's CBC shows a white count of 13,650, hemoglobin 8.7, and platelet count 381,000. Blood gases show a pH of 7.41, a pO2 of 108, and pCO2 of 35. Creatinine is 2.3. GFR is 24. Sputum is growing normal florae and yeast. The urine is growing yeast. Blood cultures are sterile. ASSESSMENT AND PLAN: The patient appears to have a bilateral pneumonia and it further appears that since changing the antibiotics to Zyvox and meropenem, the patient is doing better both clinically and with her white blood cell count. The patient's urine culture with yeast is asymptomatic and does not merit treatment. Likewise, the sputum that grew yeast is from upper airway contamination and it too does not require antimicrobial treatment. I plan to continue with meropenem and Zyvox for presumed pneumonia. I am going to also order a procalcitonin level. COMORBIDITIES: The patient had a cardiac arrest. She has acute kidney injury and is on dialysis. She also has diabetes mellitus and she is obese. cc: Juan Engle MD
[2018-06-11 12:12] LABS: CALCIUM 8.8 mg/dL (8.8-10.2); CREATININE 1.5 mg/dL (0.5-0.9); MAGNESIUM 2.1 mg/dL (1.5-2.7); PHOSPHORUS 3.1 mg/dL (2.7-4.5); POTASSIUM 4.2 mmol/L (3.5-5.1)
--- NOTE | 2018-06-11 13:09 | PROGRESS NOTE ---
DATE: 06/11/2018 SUBJECTIVE: Dr. Ledesma saw Ms. Cedeno for initial neurology consultation. Ms Cedeno had cardiopulmonary arrest 06/02/2018. She has been managed with intubation, mechanical ventilation, and sedation since then. OBJECTIVE: This morning at the time of my exam, she is about 3 hours since last propofol. She opened her eyes spontaneously. She seemed to regard me, but that was not consistent. She has full lateral eye movement with passive head turning. She had some spontaneous conjugate roving eye movement left and right. Corneal reflexes are brisk and symmetric. Pupils are round and both react briskly to bright light. She looked to me when I called her name and when I spoke, but she did not communicate beyond that. She did not follow my commands. Neck is supple. IMPRESSION: Global encephalopathy recovering from sedation, too soon to be certain there is or is not anoxic injury. No urgent suggestion from Neurology standpoint. Thanks for asking us to see Ms. Cedeno. cc: MD ROX Galloway III
[2018-06-11] MEDS ORDERED: HALDOL IV PRN (13:25)
--- NOTE | 2018-06-11 13:53 | NEPHROLOGY PROGRESS NOTE ---
DATE: 06/11/2018 TIME SEEN: 07 SUBJECTIVE: Ms. Cedeno is resting quietly, ventilator dependent. She remains on sedation. OBJECTIVE: Vital Signs: Temperature 98.8 degrees, blood pressure 103/57, heart rate 100, respirations are 17. She is on 40% FiO2; last recorded saturation is 100%. Intake and output: She has had 4487 in and 142 mL out; though she had an extra 1 L removal off dialysis. General: This is a 37-year-old white female, resting quietly in bed. She is ventilator dependent on sedation. She appears in no acute distress, chronically ill. HEENT: Normocephalic, atraumatic. Conjunctivae are pale pink. ISIAH. Mucous membranes are dry. Oral ET tube remains in place. Neck: Supple. Trachea midline. Unable to determine JVD due to ET tube strap. Cardiovascular: Regular rate and rhythm. She is tachycardic. Unable to determine murmur or gallop. Lungs: Coarse breath sounds bilateral. She remains on ventilatory support. Abdomen: Large, obese, soft. Nontender. Positive bowel sounds. She continues on tube feedings. Hypoactive. Genitourinary: Not inspected. Morse catheter is in place with minimal urine out. Extremities: Continues with 1+ edema. Integumentary: Patient does have different places of ecchymosis to her head and face. Neurological: As above. DIAGNOSTIC DATA: Sodium 132, potassium 3.7, chloride 93, CO2 of 22, BUN 16, creatinine 2.1, glucose 154, her anion gap is 17, calcium 8.6, phosphorus 3.5. Magnesium of 2. The patient's albumin this a.m. was 2.2. Her previous hemoglobin is 8.7 on the . ABGs: PH 7.41, CO2 of 38, PO2 of 84, bicarbonate 24.6 on 40% FiO2. ASSESSMENT AND PLAN: 1. Acute kidney injury secondary to arrest and shock. Patient remains in fluid volume overload. We will plan for SLED today. We will place her on an 8-hour 4K 27 bicarbonate with plans of 6- 8 L of ultrafiltration. 2. Electrolytes and acid-base balance. Again with correction on dialysis, her CO2 has improved to 22. 3. Anemia. This remains low but stable. 4. Leukocytosis with bacteremia. She remains on renal dosed antibiotics. 5. Hypotension. Followed by the Primary Care with pressor support as indicated. I would to thank you for allowing us to follow with this patient. Dictated by PATRICIA Griffin for Alejandro Corona MD Face to face encounter, data reviewed, discussed with Kendra Garcia on 06/11/18. I agree with the above assessment and plan of care. cc: PATRICIA Griffin MD [facility]
[2018-06-11 14:22] LABS: ALLEN TEST YES; BE -8.9 mmoll (-3.0-3.0); BLOOD TYPE ARTERIAL; HCO3-(ACT) 17.9 mmoll (20.0-26.0); METHB 0.9 % (0.0-1.5); O2(CT) 13.9 mL/dL (15.0-23.0); O2HB 93.7 % (95.0-99.0); PCO2(98.6) 28 mmHg (35-45); PO2(98.6) 71 mmHg (60-100); SAMPLE BLOOD; SAO2 96.3 % (95.0-100.0); THB 10.5 g/dL (11.5-17.4); pH(98.6) 7.35 (7.35-7.45)
[2018-06-11 14:23] LABS: MODALITY VENTILATOR
[2018-06-11 15:11] LABS: CALCIUM 9.4 mg/dL (8.8-10.2); CREATININE 1.3 mg/dL (0.5-0.9); PHOSPHORUS 2.7 mg/dL (2.7-4.5); POTASSIUM 4.4 mmol/L (3.5-5.1)
[2018-06-11] MEDS: MERREM 1 GM in NS 50 ML IV SCH (17:28)
[2018-06-11] MEDS ORDERED: LOPRESSOR IV PRN (18:12)
--- NOTE | 2018-06-11 18:57 | PROGRESS NOTE ---
DATE: 06/11/2018 DATE OF ROUNDS: 06/11/2018. SUBJECTIVE: According to nursing staff, the patient has had interval improvement in her mental status. Earlier today, she was awake and following commands. From a GI perspective, she is currently tolerating Glucerna 1.5 at 35 mL/h. Her goal nutritional needs are 60 mL/h. Since she has been placed on PPI therapy, her hematemesis has resolved. PHYSICAL EXAMINATION: Vital Signs: Her blood pressure he is 131/70, pulse of 130, respiration 23 and temperature of 99. Exam: The remainder of exam was deferred as the patient was tachycardic on dialysis. OBJECTIVE DATA: Reveals a sodium of 132, potassium 4.4, chloride 95, CO2 of 15, BUN of 7, with a creatinine of 1.3. Her glucose is 176. Calcium is 9.4, phosphorus 2.7 and magnesium 2.0. RECOMMENDATIONS: 1. The patient's hematemesis has resolved. Therefore, I would continue Protonix and Carafate. Please limit the Carafate to 1 month given her renal failure. 2. Once the patient recovers, it is reasonable to consider an EGD. At this time, her hemoglobin has been stable. I will recheck a CBC in the morning. 3. With regard to her tube feedings, the patient has intermittently had elevated tube feeding residuals. However, she appears to be tolerating her tube feedings at 25 mL/h. Overnight, I will increase her tube feedings to 35 mL/h. I encourage the hospitalist to work with the dietitian to increase her to a goal rate of 60 mL/h of Glucerna 1.5 with the appropriate water flushes. 4. Dr. Wander Cavazos will assume care of this patient beginning tomorrow. cc: MD Stanley rBo MD
[2018-06-11 21:14] LABS: CALCIUM 9.4 mg/dL (8.8-10.2); CREATININE 1.7 mg/dL (0.5-0.9); MAGNESIUM 2.2 mg/dL (1.5-2.7); PHOSPHORUS 3.3 mg/dL (2.7-4.5); POTASSIUM 4.8 mmol/L (3.5-5.1)
[2018-06-11] MEDS: HUMULIN R 100 UNIT in NS 99 ML IV SCH (23:28)
[2018-06-12 00:06] LABS: CALCIUM 9.2 mg/dL (8.8-10.2); CREATININE 1.7 mg/dL (0.5-0.9); MAGNESIUM 2.4 mg/dL (1.5-2.7); PHOSPHORUS 3.4 mg/dL (2.7-4.5); POTASSIUM 4.4 mmol/L (3.5-5.1)
[2018-06-12] MEDS: PROTONIX IV SCH ×2 (03:17→14:36)
[2018-06-12] MEDS: DIPRIVAN 1% 1,000 MG/100 ML BOTTLE IV SCH ×3 (03:17→07:41)
[2018-06-12 04:06] LABS: CALCIUM 9.6 mg/dL (8.8-10.2); MAGNESIUM 2.5 mg/dL (1.5-2.7); POTASSIUM 4.4 mmol/L (3.5-5.1)
[2018-06-12 04:43] LABS: ALLEN TEST YES; BE -5.3 mmoll (-3.0-3.0); BLOOD TYPE ARTERIAL; HCO3-(ACT) 20.8 mmoll (20.0-26.0); METHB 1.1 % (0.0-1.5); O2(CT) 17.9 mL/dL (15.0-23.0); O2HB 96.3 % (95.0-99.0); PCO2(98.6) 33 mmHg (35-45); PO2(98.6) 121 mmHg (60-100); SAMPLE BLOOD; SAO2 99.1 % (95.0-100.0); SRATE 14 BPM; THB 13.1 g/dL (11.5-17.4); TVOL 650 mL; pH(98.6) 7.37 (7.35-7.45)
[2018-06-12 04:44] LABS: MODALITY VENTILATOR
[2018-06-12] MEDS: ZYVOX 600 MG/D5W 600 MG/300 ML IVPB IV SCH ×2 (04:59→18:00)
[2018-06-12] MEDS: MERREM 1 GM in NS 50 ML IV SCH ×2 (04:59→18:00)
[2018-06-12 06:05] LABS: BASO# 0.08 X1000 (0.0-0.2); BASO% 0.7 % (0.0-0.8); EOS# 0.08 X1000 (0.0-0.7); EOS% 0.7 % (0.0-10.0); HEMATOCRIT 30.8 % (37.0-47.0); HEMOGLOBIN 9.6 g/dL (12.0-16.0); IMM GRAN# 0.22 X1000 (0.0-0.04); LYMPH# 1.51 X1000 (1.2-3.4); LYMPH% 13.7 % (20.5-51.1); MCH 26.4 PG (27-31); MCHC 31.2 g/dL (33-37); MCV 84.8 FL (81-99); MONO# 0.94 X1000 (0.11-0.59); MONO% 8.5 % (1.7-9.3); MPV 9.7 FL (7.4-10.4); NEUT% 74.4 % (42.2-75.2); PLT 510 X1000 (130-400); RBC 3.63 XMIL (4.2-5.4); RDW 17.6 % (11.5-14.5); WBC 11.03 X1000 (4.8-10.8)
--- NOTE | 2018-06-12 06:48 | Diag Imaging Result Doc PS360 ---
EXAM: CHEST-1 VIEW HISTORY: SOB TECHNIQUE: Chest single view COMPARISON: 06/11/2018 FINDINGS: No change in the endotracheal tube or nasogastric tube. The lungs are poorly expanded. There are nodular infiltrates bilaterally with an appearance similar to the prior exam. No pleural effusions identified. IMPRESSION: Stable chest. Electronically signed by Castillo Quiroz 06/12/2018 6:45 AM
[2018-06-12] MEDS: CARAFATE LIQUID GT SCH ×3 (08:26→21:38)
[2018-06-12 09:59] LABS: CALCIUM 9.3 mg/dL (8.8-10.2); CREATININE 2.3 mg/dL (0.5-0.9); MAGNESIUM 2.4 mg/dL (1.5-2.7); PHOSPHORUS 4.6 mg/dL (2.7-4.5)
--- NOTE | 2018-06-12 10:24 | PROGRESS NOTE ---
DATE: 06/12/2018 SUBJECTIVE: Ms. Cedeno they are trying to extubate. She is doing better as far as her acid-base status, and they have turned off the sedation, turned off the NG feeding. She failed a weaning attempt yesterday. OBJECTIVE: Vital Signs: Temperature 98.8 degrees, pulse 106, respirations 19, blood pressure 118/76. HEENT: Pupils are equal and round. Lungs: Clear in all lung melendez. Cardiovascular: Regular rhythm and rate without murmur or S3. Abdomen: Soft. Skin: Warm and dry. DIAGNOSTIC DATA: Urine output. 7400 mL. Chest x-ray from this morning, stable chest. No change in endotracheal tube or NG tube. Lungs are poorly expanded. There are nodular infiltrates bilaterally, appear similar to prior exam. No pleural effusions. ASSESSMENT AND PLAN: 1. The patient with a history of hematemesis, which has resolved. Continue Protonix and Carafate. When she recovers, consider an esophagogastroduodenoscopy for followup. 2. She has tube feedings, which we will resume again. We are trying to extubate her. 3. Respiratory failure. Continue weaning attempts. 4. Global encephalopathy. Part of this is sedation, so hopefully we will see more recovery. 5. Bilateral pneumonia. We changed the patient from Rocephin to a combination of Zyvox and meropenem. Review of her orders, meropenem 1 gram every 12 hours and linezolid 600 mg intravenously every 12 hours. 6. Diabetic ketoacidosis. Acidosis has improved. Bicarbonate is at 15. Blood sugars appear better controlled. cc: Stanley Dexter MD
[2018-06-12 10:53] LABS: ALLEN TEST NO; BLOOD TYPE ARTERIAL; METHB 1.1 % (0.0-1.5); O2(CT) 13.1 mL/dL (15.0-23.0); O2HB 96.7 % (95.0-99.0); PCO2(98.6) 34 mmHg (35-45); PO2(98.6) 160 mmHg (60-100); SAMPLE BLOOD; SAO2 99.2 % (95.0-100.0); THB 9.4 g/dL (11.5-17.4); pH(98.6) 7.37 (7.35-7.45)
[2018-06-12 10:54] LABS: MODALITY VENTILATOR
--- NOTE | 2018-06-12 11:28 | INFECTIOUS DISEASE PROGRESS NO ---
DATE: 06/12/2018 PRESENT ILLNESS: Ms. Cedeno has bilateral pneumonia, which seems to be improving. At this point, she is on a weaning trial to possibly be extubated from the ventilator. The patient is also being treated for a Klebsiella bacteremia. MEDICATIONS: Today is day 3 of Zyvox 600 mg IV every 12 hours, and meropenem 1 g IV every 12 hours as a renally modified dose. PHYSICAL EXAMINATION: Vital Signs: Temperature is 97.7, pulse rate 105, respiratory rate 20, blood pressure is 100/66, O2 saturation 100% on a 40% FiO2 on the mechanical ventilator. General: This is a critically ill-appearing, obese, middle-aged female. She is lying in the bed, with her eyes open, on the mechanical ventilator. HEENT: Oral ET tube is in place. Oral mucous membranes are pink and moist. Conjunctivae are pink. Cardiovascular: Heart rate and rhythm are regular and tachycardic. Sinus tach on the monitor. Pedal and radial pulses are palpable bilaterally. Respiratory: Lung sounds have some rhonchi noted in the upper lobes, diminished in the bases. Abdomen: Soft, round, and nontender. Bowel sounds are hypoactive. There is a NG-tube in place and she is receiving tube feedings. Int: There is a dialysis catheter to the right groin, the site is without any edema or erythema. Neurologic: She has her eyes open and will make eye contact, and follow simple commands. LABORATORY AND X-RAY: Today her white count is 11.03, hemoglobin 9.6, platelet count 510,000 on FiO2 of 40%. This morning her pH was 7.37, pCO2 33, pO2 121, HC03 20.8. Her previous blood cultures grew a Klebsiella pneumoniae, which have been negative since. Chest x- ray today is stable, with nodular infiltrates bilaterally. ASSESSMENT AND PLAN: Ms. Cedeno is receiving Zyvox and meropenem for bilateral pneumonia, as well as the Klebsiella pneumoniae bacteremia. Based on her first set of sterile blood cultures she has had 7 days of treatment for her bacteremia. She will need 1 more week of treatment for her bacteremia, however, she may need longer for the pneumonia. These plans have been discussed with and recommended by Dr. Engle. COMORBIDITIES: The comorbidities for Ms. Cedeno include cardiac arrest on this admission, acute kidney injury with hemodialysis, poorly controlled diabetes mellitus, and obesity. Dictated by PATRICIA Ward for Juan Engle MD This chart was documented by, PATRICIA Ward and accurately reflects the services performed, treatment plan and medical decisions as attested by the providers signature Juan Engle MD. cc: Juan Engle MD [facility]
[2018-06-12 11:56] LABS: CALCIUM 9.6 mg/dL (8.8-10.2); CREATININE 2.3 mg/dL (0.5-0.9); MAGNESIUM 2.6 mg/dL (1.5-2.7); PHOSPHORUS 5.5 mg/dL (2.7-4.5); POTASSIUM 4.1 mmol/L (3.5-5.1)
--- NOTE | 2018-06-12 13:51 | PROGRESS NOTE ---
DATE: 06/12/2018 SUBJECTIVE: This morning, Ms. Cedeno appeared to be asleep as I approached the bedside, but she opened her eyes when I called her name. OBJECTIVE: She fixed her gaze on me, and followed me consistently from 1 side of the bed to the other. She held up 2 fingers to command. On limited bedside testing of power in the limbs, she seems to be diffusely weak. Her responses to pinprick and light touch testing were inconsistent. Wrist and ankle reflexes are absent. IMPRESSION: 1. Global encephalopathy, recovering from sedation, more alert today and no definite evidence of increased intracranial pressure, central nervous system infection, brain stem lesion. I hope she will continue to recover. 2. There is clinical evidence of peripheral neuropathy, presumed diabetic neuropathy. In this setting, additional critical illness polyneuropathy may be difficult to sort out. I do not think we need any urgent workup now. We might consider nerve conduction study later depending on her clinical course. Thanks for asking neurology to see Ms. Cedeno. cc: MD ROX Galloway III
--- NOTE | 2018-06-12 14:43 | PROGRESS NOTE ---
DATE: 06/12/2018 SUBJECTIVE: We will now be taking over GI following from Dr. Servin. I have spoken with the nurse. They are working on weaning trials today. There has been no active bleeding. OBJECTIVE: Vital Signs: Temperature 98.4, pulse 106, respirations 24, blood pressure 116/82. Generally, the patient is in no acute distress. She is following some simple commands. She has been seen by Neurology and they are working on weaning trials. Patient is also being followed by Nephrology for acute kidney injury. LABORATORY: Hematology: WBC 11.03. Hemoglobin 9.6, hematocrit 30.8, MCV 84.8, platelets 510,000. Chemistry: Sodium 134, potassium 4.1, chloride 98, CO2 of 17. BUN 28, creatinine 2.3, glucose 156. ASSESSMENT AND PLAN: 1. Hematemesis has resolved. Continue PPI. Continue Carafate. Monitor hemoglobin and hematocrit. Once she recovers, she may need esophagogastroduodenoscopy for further evaluation. GI will be available. 2. Respiratory failure. Patient is on mechanical ventilation, but they are working on weaning trials today. 3. Encephalopathy seems to have improved. She is following commands. 4. Pneumonia. Continuing on antibiotics. 5. Diabetic ketoacidosis. Continue management per medical team. Again, GI will be following and further plans will be made according to her progress. She may need an esophagogastroduodenoscopy for further evaluation once stabilized. Patient was also seen by Dr. Cavazos. Dictated by PATRICIA Parr for Wander Cavazos MD cc: PATRICIA Cochran MD
[2018-06-12 15:14] LABS: CALCIUM 9.5 mg/dL (8.8-10.2); CREATININE 2.5 mg/dL (0.5-0.9); MAGNESIUM 2.6 mg/dL (1.5-2.7); PHOSPHORUS 6.1 mg/dL (2.7-4.5)
[2018-06-12 19:35] LABS: CALCIUM 9.6 mg/dL (8.8-10.2); CREATININE 2.7 mg/dL (0.5-0.9); MAGNESIUM 2.7 mg/dL (1.5-2.7); PHOSPHORUS 6.3 mg/dL (2.7-4.5); POTASSIUM 4.1 mmol/L (3.5-5.1)
[2018-06-12 20:29] LABS: ALLEN TEST YES; BE -6.6 mmoll (-3.0-3.0); BLOOD TYPE ARTERIAL; HCO3-(ACT) 19.7 mmoll (20.0-26.0); METHB 0.5 % (0.0-1.5); O2(CT) 12.1 mL/dL (15.0-23.0); O2HB 92.9 % (95.0-99.0); PCO2(98.6) 32 mmHg (35-45); PO2(98.6) 63 mmHg (60-100); SAMPLE BLOOD; SAO2 95.4 % (95.0-100.0); THB 9.2 g/dL (11.5-17.4); pH(98.6) 7.36 (7.35-7.45)
[2018-06-12 20:31] LABS: MODALITY COOL AEROSOL
[2018-06-12 23:56] LABS: CALCIUM 9.5 mg/dL (8.8-10.2); CREATININE 2.9 mg/dL (0.5-0.9); MAGNESIUM 2.8 mg/dL (1.5-2.7); PHOSPHORUS 6.6 mg/dL (2.7-4.5); POTASSIUM 4.1 mmol/L (3.5-5.1)
--- NOTE | 2018-06-13 01:24 | NEPHROLOGY PROGRESS NOTE ---
DATE: 06/12/2018 SUBJECTIVE: Unresponsive. OBJECTIVE: Vital Signs: Blood pressure 107/63, heart rate 111, respirations 24. General: Unresponsive on the vent. Skin: Warm and dry. HEENT: Conjunctivae are pink. Neck: Neck veins are not distended. Heart: Regular. Mildly tachycardic. Lungs: Equal. No crackles. Abdomen: Soft. Diminished bowel sounds but present. Nontender. Extremities: No edema, clubbing or cyanosis. IMPRESSION AND PLAN: Acute kidney injury. No recovery. She will be treated with sustained low- efficiency dialysis on tomorrow. Volume status and electrolytes are all acceptable. cc: Alejandro Corona MD
[2018-06-13] MEDS: CARAFATE LIQUID GT SCH ×4 (02:32→21:24)
[2018-06-13] MEDS: SODIUM CHLORIDE 0.9% INJ SCH (02:33)
[2018-06-13] MEDS: HUMULIN R 100 UNIT in NS 99 ML IV SCH (02:33)
[2018-06-13] MEDS: PROTONIX IV SCH ×2 (02:33→15:26)
[2018-06-13 04:29] LABS: CALCIUM 9.5 mg/dL (8.8-10.2); CREATININE 3.3 mg/dL (0.5-0.9); MAGNESIUM 2.9 mg/dL (1.5-2.7); PHOSPHORUS 6.9 mg/dL (2.7-4.5); POTASSIUM 4.3 mmol/L (3.5-5.1)
[2018-06-13 05:50] LABS: ALLEN TEST YES; BE -7.5 mmoll (-3.0-3.0); BLOOD TYPE ARTERIAL; HCO3-(ACT) 19.1 mmoll (20.0-26.0); METHB 1.5 % (0.0-1.5); O2(CT) 12.7 mL/dL (15.0-23.0); PCO2(98.6) 29 mmHg (35-45); PO2(98.6) 121 mmHg (60-100); SAMPLE BLOOD; SAO2 99.2 % (95.0-100.0); THB 9.2 g/dL (11.5-17.4); pH(98.6) 7.37 (7.35-7.45)
[2018-06-13 05:51] LABS: MODALITY COOL AEROSOL
[2018-06-13] MEDS: ZYVOX 600 MG/D5W 600 MG/300 ML IVPB IV SCH ×2 (06:07→18:09)
[2018-06-13] MEDS: MERREM 1 GM in NS 50 ML IV SCH ×2 (06:07→18:09)
[2018-06-13] MEDS ORDERED: NS 2,000 ML MISC PRN (08:02)
[2018-06-13 08:22] LABS: CALCIUM 9.5 mg/dL (8.8-10.2); CREATININE 3.6 mg/dL (0.5-0.9); MAGNESIUM 2.8 mg/dL (1.5-2.7); PHOSPHORUS 6.8 mg/dL (2.7-4.5)
[2018-06-13] MEDS: HEPARIN IV PRN (08:30)
--- NOTE | 2018-06-13 10:36 | PROGRESS NOTE ---
DATE: 06/13/2018 HISTORY: Ms. Cedeno did open her eyes and she did talk to me so she appears to be alert still very lethargic though. She is breathing comfortably and she is off the ventilator. OBJECTIVE: Vital Signs: Temperature 98.9 degrees, pulse 109, respirations 26, blood pressure 97/61. HEENT: Pupils are equal and round. Lungs: Clear in all lung melendez. Cardiovascular: Regular rhythm and rate without murmur or S3. Abdomen: Soft. Skin: Warm and dry. LABORATORY DATA: Blood sugar 174, 164, 168. Review of her labs this morning, hematocrit 30, hemoglobin 9.6. Electrolytes look good. Sodium 131 potassium 4.0, chloride 97, BUN 46, creatinine 3.6, blood sugars 169, 172, 175, 257. ASSESSMENT AND PLAN: 1. Acute kidney injury. No recovery. Continue to treat with dialysis. electrolytes are acceptable. 2. Hemoptysis which has resolved. Continue proton pump inhibitors and Carafate. Follow hemoglobin and hematocrit. 3. Encephalopathy which is improved and she is waking up and seems to be doing better from a neurologic standpoint. 4. Pneumonia. Continue present antibiotics. 5. Diabetic ketoacidosis, diabetes mellitus type 2. Sugar is under better control. Acidosis has gone down. 6. Review of orders. I will do not see any change at this point. She is on Linezolid 600 mg IV q.12h and meropenem 1 g IV q.12h. Review of lab this morning, hematocrit 30, hemoglobin 9.6. Electrolytes look good. Sodium 131 potassium 4.0, chloride 97, BUN 46, creatinine 3.6, blood sugars 169, 172, 175, 257. cc: Stanley Dexter MD [facility]
[2018-06-13 12:13] LABS: CALCIUM 9.7 mg/dL (8.8-10.2); CREATININE 2.9 mg/dL (0.5-0.9); MAGNESIUM 2.6 mg/dL (1.5-2.7); PHOSPHORUS 4.3 mg/dL (2.7-4.5); POTASSIUM 4.5 mmol/L (3.5-5.1)
[2018-06-13 15:33] LABS: CALCIUM 9.3 mg/dL (8.8-10.2); CREATININE 2.9 mg/dL (0.5-0.9); MAGNESIUM 2.4 mg/dL (1.5-2.7); PHOSPHORUS 4.1 mg/dL (2.7-4.5); POTASSIUM 4.1 mmol/L (3.5-5.1)
--- NOTE | 2018-06-13 16:46 | NEPHROLOGY PROGRESS NOTE ---
DATE: 06/13/2018 SUBJECTIVE: She is off the vent today. Eyes are open. Staff states that she follows simple commands. OBJECTIVE: Vital signs: Blood pressure 94/68, heart rate 127, respirations 26, and she is afebrile. Intake 2 L and output 30 mL. General: No acute distress. Skin: Warm and dry. HEENT: Conjunctivae are pink. Neck veins are not visible. Heart: Regular and tachycardic. Lungs: Equal with no crackles. Abdomen: Soft and nontender. Bowel sounds are present. Extremities: No edema, clubbing or cyanosis. IMPRESSION: Acute kidney injury. PLAN: SLED today. Goal of 1-2 L ultrafiltration only. Four K bath. She still has a metabolic acidosis, but anion gap is down to 19. No changes today. cc: Alejandro Corona MD
[2018-06-13 20:18] LABS: CALCIUM 9.4 mg/dL (8.8-10.2); CREATININE 3.1 mg/dL (0.5-0.9); MAGNESIUM 2.7 mg/dL (1.5-2.7); PHOSPHORUS 4.4 mg/dL (2.7-4.5); POTASSIUM 4.6 mmol/L (3.5-5.1)
[2018-06-13] MEDS: OFIRMEV 1000 MG/ISOTONIC SOLN 1,000 MG/100 ML BOTTLE IV PRN (21:25)
[2018-06-13 21:46] LABS: ALLEN TEST YES; BE -5.4 mmoll (-3.0-3.0); BLOOD TYPE ARTERIAL; HCO3-(ACT) 20.7 mmoll (20.0-26.0); O2(CT) 12.8 mL/dL (15.0-23.0); O2HB 95.6 % (95.0-99.0); PCO2(98.6) 31 mmHg (35-45); PO2(98.6) 84 mmHg (60-100); SAMPLE BLOOD; SAO2 98.2 % (95.0-100.0); THB 9.4 g/dL (11.5-17.4); pH(98.6) 7.39 (7.35-7.45)
[2018-06-13 21:48] LABS: MODALITY COOL AEROSOL
[2018-06-14 00:18] LABS: CALCIUM 9.7 mg/dL (8.8-10.2); CREATININE 3.5 mg/dL (0.5-0.9); MAGNESIUM 2.7 mg/dL (1.5-2.7); PHOSPHORUS 4.8 mg/dL (2.7-4.5); POTASSIUM 4.8 mmol/L (3.5-5.1)
[2018-06-14] MEDS: PROTONIX IV SCH ×5 (01:29→14:46)
[2018-06-14] MEDS: SODIUM CHLORIDE 0.9% INJ SCH (02:28)
[2018-06-14] MEDS: HUMULIN R 100 UNIT in NS 99 ML IV SCH (02:29)
[2018-06-14] MEDS: CARAFATE LIQUID GT SCH ×4 (02:29→20:43)
[2018-06-14 05:03] LABS: CALCIUM 9.7 mg/dL (8.8-10.2); CREATININE 3.6 mg/dL (0.5-0.9); MAGNESIUM 2.9 mg/dL (1.5-2.7); PHOSPHORUS 5.2 mg/dL (2.7-4.5); POTASSIUM 4.7 mmol/L (3.5-5.1)
[2018-06-14] MEDS: MERREM 1 GM in NS 50 ML IV SCH ×2 (05:15→17:42)
[2018-06-14] MEDS: ZYVOX 600 MG/D5W 600 MG/300 ML IVPB IV SCH ×2 (05:16→17:43)
[2018-06-14 05:24] LABS: ALLEN TEST YES; BE -6.9 mmoll (-3.0-3.0); BLOOD TYPE ARTERIAL; HCO3-(ACT) 19.5 mmoll (20.0-26.0); METHB 0.5 % (0.0-1.5); O2(CT) 13.2 mL/dL (15.0-23.0); O2HB 93.4 % (95.0-99.0); PCO2(98.6) 36 mmHg (35-45); PO2(98.6) 71 mmHg (60-100); SAMPLE BLOOD; SAO2 95.5 % (95.0-100.0); pH(98.6) 7.32 (7.35-7.45)
[2018-06-14 05:25] LABS: MODALITY COOL AEROSOL
[2018-06-14 08:30] LABS: CREATININE 3.9 mg/dL (0.5-0.9); MAGNESIUM 2.8 mg/dL (1.5-2.7); PHOSPHORUS 5.7 mg/dL (2.7-4.5); POTASSIUM 4.6 mmol/L (3.5-5.1)
--- NOTE | 2018-06-14 08:50 | PROGRESS NOTE ---
DATE: 06/14/2018 SUBJECTIVE: Ms. Cedeno is awake. Eyes are open. She is comfortable. No complaints. OBJECTIVE: Vital Signs: Remains afebrile. Temperature 98.5 degrees, pulse 119, respirations 22, blood pressure 94/64. HEENT: Pupils are equal and round. No distended neck veins. Lungs: Clear in all lung melendez. Cardiovascular Examination: Regular rhythm and rate without murmur or S3. Abdomen: Soft. Skin: Warm, dry. Is and Os: Urine output close to 3 L. Laboratory Data: Blood sugar 168, 226, 216. ASSESSMENT AND PLAN: 1. Acute kidney injury. Continue dialysis. 2. Electrolytes and volume status. Volume status is improving. Electrolytes appear stable. Sodium 134, potassium 4.7, chloride 98, BUN 51, creatinine 3.6. 3. History of hemoptysis which has resolved. Continue proton pump inhibitor and Carafate. 4. Encephalopathy, which was multifactorial. Appeared to be global encephalopathy and so improving. She is awake and alert. She seems to understand the conversation. 5. Pneumonia. Continue present antibiotics. This is improving. 6. Diabetic ketoacidosis, diabetes mellitus type 2. Her acidosis has improved. 7. Review of her medication. I do not see any changes at this point. cc: Stanley Dexter MD
[2018-06-14 12:43] LABS: CALCIUM 9.8 mg/dL (8.8-10.2); CREATININE 4.1 mg/dL (0.5-0.9); PHOSPHORUS 6.2 mg/dL (2.7-4.5)
[2018-06-14 15:01] LABS: CALCIUM 10.3 mg/dL (8.8-10.2); CREATININE 4.4 mg/dL (0.5-0.9); PHOSPHORUS 6.5 mg/dL (2.7-4.5); POTASSIUM 4.7 mmol/L (3.5-5.1)
--- NOTE | 2018-06-14 16:21 | INFECTIOUS DISEASE PROGRESS NO ---
DATE: 06/14/2018 PRESENT ILLNESS: The patient has bilateral pneumonia. She is improved quite a bit in the past few days. She initially had Klebsiella pneumonia and bacteremia and she may well have had a super infection imposed on the Klebsiella infection. MEDICATIONS: This is day 4 of treatment with a combination of Zyvox and meropenem. PHYSICAL EXAMINATION: Vital Signs: Temperature is 98.5, pulse 122, respirations 21, blood pressure 109/75. General: This is a ill-appearing, obese, middle-aged female. She has been extubated. She is alert. She has nasal oxygen going. Head/eyes/ears/nose/throat: She can hear my spoken words and see near objects. She does not have any white patches on her tongue. Neck: No meningismus. Lungs: Clear to auscultation. Cardiovascular: Regular heart rate. Abdomen: Soft and nontender. Neurologic: Patient is awake. She followed request to move her extremities. There was no tremor. Patient has been getting tube feedings and tolerating them well. LAB AND X-RAY: Chest x-ray shows nodular infiltrates that are unchanged. There was no white count for today. Blood gases show a pH of 7.32, a PO2 of 71, a pCO2 of 36. Creatinine is 4.1. GFR is 12. Blood cultures are negative. Urine is growing yeast. ASSESSMENT AND PLAN: The patient has a pneumonia superimposed on her Klebsiella bacteremia and pneumonia. The plan is to continue treatment with Zyvox and meropenem. I am going to check her CBC for tomorrow. COMORBIDITIES: The patient had a cardiac arrest. She also had acute kidney injury and was on hemodialysis. She is a diabetic and she is obese. cc: Juan Engle MD
[2018-06-14 19:39] LABS: ALLEN TEST YES; BE -6.8 mmoll (-3.0-3.0); BLOOD TYPE ARTERIAL; HCO3-(ACT) 19.6 mmoll (20.0-26.0); METHB 1.1 % (0.0-1.5); O2(CT) 12.5 mL/dL (15.0-23.0); O2HB 96.5 % (95.0-99.0); PCO2(98.6) 34 mmHg (35-45); PO2(98.6) 105 mmHg (60-100); SAMPLE BLOOD; SAO2 98.8 % (95.0-100.0); THB 9.1 g/dL (11.5-17.4); pH(98.6) 7.34 (7.35-7.45)
[2018-06-14 19:39] LABS: CALCIUM 10.3 mg/dL (8.8-10.2); CREATININE 4.6 mg/dL (0.5-0.9); MAGNESIUM 3.1 mg/dL (1.5-2.7); PHOSPHORUS 6.3 mg/dL (2.7-4.5); POTASSIUM 4.9 mmol/L (3.5-5.1)
[2018-06-14 19:40] LABS: MODALITY CANNULA
[2018-06-14 23:27] LABS: CREATININE 4.7 mg/dL (0.5-0.9); MAGNESIUM 3.3 mg/dL (1.5-2.7); PHOSPHORUS 7.3 mg/dL (2.7-4.5); POTASSIUM 4.8 mmol/L (3.5-5.1)
[2018-06-15] MEDS: PROTONIX IV SCH ×3 (01:30→15:00)
[2018-06-15] MEDS: CARAFATE LIQUID GT SCH ×4 (02:35→20:12)
[2018-06-15] MEDS: HUMULIN R 100 UNIT in NS 99 ML IV SCH (02:36)
[2018-06-15] MEDS: SODIUM CHLORIDE 0.9% INJ SCH (02:36)
[2018-06-15 04:10] LABS: CALCIUM 10.1 mg/dL (8.8-10.2); CREATININE 5.1 mg/dL (0.5-0.9); MAGNESIUM 3.4 mg/dL (1.5-2.7); PHOSPHORUS 7.7 mg/dL (2.7-4.5); POTASSIUM 5.1 mmol/L (3.5-5.1)
[2018-06-15] MEDS: MERREM 1 GM in NS 50 ML IV SCH ×2 (05:25→18:23)
[2018-06-15] MEDS: ZYVOX 600 MG/D5W 600 MG/300 ML IVPB IV SCH ×2 (05:26→18:23)
[2018-06-15 05:50] LABS: BASO# 0.15 X1000 (0.0-0.2); BASO% 1.6 % (0.0-0.8); EOS# 0.07 X1000 (0.0-0.7); EOS% 0.8 % (0.0-10.0); HEMATOCRIT 29.6 % (37.0-47.0); HEMOGLOBIN 8.9 g/dL (12.0-16.0); IMM GRAN# 0.05 X1000 (0.0-0.04); IMM GRAN% 0.5 % (0.0-0.5); LYMPH# 1.63 X1000 (1.2-3.4); LYMPH% 17.8 % (20.5-51.1); MCH 26.1 PG (27-31); MCHC 30.1 g/dL (33-37); MCV 86.8 FL (81-99); MONO# 0.53 X1000 (0.11-0.59); MONO% 5.8 % (1.7-9.3); MPV 9.5 FL (7.4-10.4); NEUT# 6.73 X1000 (1.4-6.5); NEUT% 73.5 % (42.2-75.2); PLT 529 X1000 (130-400); RBC 3.41 XMIL (4.2-5.4); RDW 17.7 % (11.5-14.5); WBC 9.16 X1000 (4.8-10.8)
[2018-06-15] MEDS ORDERED: NS 2,000 ML MISC PRN (06:54)
[2018-06-15 08:58] LABS: CALCIUM 10.4 mg/dL (8.8-10.2); CREATININE 5.3 mg/dL (0.5-0.9); MAGNESIUM 3.4 mg/dL (1.5-2.7); PHOSPHORUS 7.3 mg/dL (2.7-4.5); POTASSIUM 4.9 mmol/L (3.5-5.1)
[2018-06-15] MEDS: HEPARIN IV PRN (09:00)
[2018-06-15 09:13] LABS: ALLEN TEST YES; BE -8.3 mmoll (-3.0-3.0); BLOOD TYPE ARTERIAL; HCO3-(ACT) 18.4 mmoll (20.0-26.0); METHB 0.7 % (0.0-1.5); O2(CT) 12.1 mL/dL (15.0-23.0); O2HB 94.5 % (95.0-99.0); PCO2(98.6) 34 mmHg (35-45); PO2(98.6) 74 mmHg (60-100); SAMPLE BLOOD; SAO2 96.7 % (95.0-100.0); pH(98.6) 7.31 (7.35-7.45)
[2018-06-15 09:14] LABS: MODALITY CANNULA
--- NOTE | 2018-06-15 09:23 | PROGRESS NOTE ---
DATE: 06/15/2018 SUBJECTIVE: She is awake, and she is talking; and NG tube is out. They are going to do a barium swallow. Hopefully, we can start her eating, but she is feeling better. She is very weak. OBJECTIVE: Vital signs: Temp 96.5 degrees, pulse 100, respirations 17, blood pressure 117/72. Pupils: Are equal and round. Lungs: Clear in all lung melendez. Cardiovascular: Regular rate without murmur or S3. Abdomen: Soft. Skin: Warm and dry. Urine output is 4000 mL. Blood sugar 216, 254, and 216. ASSESSMENT AND PLAN: 1. Bilateral pneumonia, improved quite a bit over the past. Several days, treated for Klebsiella pneumonia with bacteremia, superimposed infection with Klebsiella infection. She is on Zyvox and meropenem, making progress. 2. History of hemoptysis, which has resolved. 3. Encephalopathy with multifactorial. This has improved as well. Mental status improved since extubation on and off sedation. 4. Diabetic ketoacidosis, which acidosis has resolved. 5. Acute tubular necrosis. Renal function. Serum creatinine is 5.3. Her electrolytes today: Sodium 134, potassium 4.9, chloride 95, BUN 75, creatinine 5.3. So suspect she will need to continue dialysis with ultrafiltration. cc: Stanley Dexter MD
[2018-06-15 11:42] LABS: CALCIUM 9.9 mg/dL (8.8-10.2); CREATININE 3.8 mg/dL (0.5-0.9); MAGNESIUM 2.9 mg/dL (1.5-2.7); PHOSPHORUS 4.8 mg/dL (2.7-4.5); POTASSIUM 4.9 mmol/L (3.5-5.1)
--- NOTE | 2018-06-15 12:03 | PROGRESS NOTE ---
DATE: 06/15/2018 SUBJECTIVE: The patient was extubated. She is more awake. There is reports she will have a barium swallow to see if she can start eating. OBJECTIVE: Vital Signs: Temperature 96.5 degrees, pulse 101, respirations 17, blood pressure 117/72. LABORATORY: Hematology: WBC 9.16, hemoglobin 8.9, hematocrit 29.6, MCV 86.8, platelets 529,000. Chemistry: Sodium 137, potassium 4.9, chloride 102, CO2 16, BUN 53, creatinine 3.8, glucose 168. ASSESSMENT AND PLAN: 1. Bilateral pneumonia. On antibiotics. 2. Recent respiratory failure. Patient has been extubated. 3. History of hematemesis/hemoptysis. Hemoglobin and hematocrit are stable. There has been no further evidence of bleeding. Will continue to follow. GI will be available as needed. Please reconsult Dr. Cavazos if needed. Dictated by PATRICIA Parr for Wander Cavazos MD cc: PATRICIA Cochran MD
--- NOTE | 2018-06-15 12:43 | NEPHROLOGY PROGRESS NOTE ---
DATE: 06/15/2018 TIME SEEN: 0700 SUBJECTIVE: Ms. Cedeno is resting quietly in bed. She does open her eyes to verbal command. She does follow commands of lifting her arms and moving her feet. OBJECTIVE: Vital Signs: Temperature 98.6 degrees, blood pressure 118/72, heart rate 93, respirations 17. She is currently on BiPAP at 50%. She has 98% recorded saturation. She has had 2521 in, 39 mL out. LABS: Sodium 134, potassium 5.1, chloride 97, CO2 17, BUN 76, creatinine 5.1, glucose 219, anion gap 20, calcium 10.1, phosphorus 7.7, magnesium 3.4. White count 9.16, hemoglobin 8.9, hematocrit 29.6 with a platelet count of 529,000. ABGs pH 7.31, CO2 34, PO2 74, bicarb 18.4 this is on 3 L nasal cannula. PHYSICAL EXAM: This is a 37-year-old white female. She is resting quietly in bed. She appears chronically ill no acute distress. Her skin is warm and dry.HEENT: Normocephalic, atraumatic. Conjunctiva is pale. She has ISIAH. Mucous membranes are dry. Neck: Supple. Trachea midline. Unable to determine JVD. Cardiovascular: She is regular rate and rhythm, S1- S2 noted with an S4. Lungs: Clear to auscultation bilaterally. Equal excursion though shallow inspiration. Abdomen: Large, distended, positive bowel sounds. Genitourinary: Not inspected. Patient requires dialysis for urine output and assistance with volume overload. Extremities: Have trace edema. Neurological: As mentioned above. ASSESSMENT AND PLAN: 1. Acute kidney injury. There has been no recovery for urine output. We will plan for SLED today. She is to be on a 4 K bath 2.5 calcium for 8 hours. We will attempt to pull 3 L of ultrafiltration. 2. Electrolytes and acid-base balance. These are acceptable with correction on dialysis. 3. Anemia. This remains low but stable. No indications for intervention. We will defer to the primary care team. 4. Bacteremia followed by the primary care. She is on renal dosed antibiotics. 5. Respiratory failure. Patient has been extubated and remains on BiPAP. Like to thank you for allowing us to follow with this patient. Dictated by PATRICIA Griffin for Alejandro Corona MD Face to face encounter, data reviewed, discussed with Kendra Garcia on 06/15/18. I agree with the above assessment and plan of care. cc: PATRICIA Griffin MD [facility]
--- NOTE | 2018-06-15 13:39 | INFECTIOUS DISEASE PROGRESS NO ---
DATE: 06/15/2018 PRESENT ILLNESS: The patient initially had Klebsiella pneumonia and bacteremia. I believe she developed a superimposed infection which is being treated now. MEDICATIONS: The superimposed infection is being treated with Zyvox and meropenem which has been given now for 6 days. PHYSICAL EXAMINATION: Vital Signs: Temperature is 97 degrees, pulse 113, respirations 22, blood pressure 111/75. General: This is an ill-appearing, obese, middle-aged female. She is extubated. She is alert and she looks a whole lot better than she did days ago. Head, eyes, ears, nose, throat: She can hear my spoken words and see near objects. She does not have any white patches on her tongue. Neck: No stiffness. Lungs: Clear to auscultation. Cardiovascular: Heart rate is regular. Abdomen: Soft and nontender. In the patient's right groin area there is a dialysis catheter. The site is not erythematous or bleeding. Neurologic: The patient is awake. She moved her extremities to request. There was no tremor. Integument: No rash. LAB AND X-RAY: There is not a radiographic study that has been done today. The patient's CBC shows a white count of 9,160, hemoglobin 8.9, and platelet count 529,000. Blood gases show a pH of 7.31, a PO2 of 74, and a pCO2 of 34. Creatinine is 3.8. GFR is 13. ASSESSMENT AND PLAN: Patient has a superimposed infection. My plan is to continue with Zyvox and meropenem. I am going to go ahead and get a chest x-ray tomorrow. COMORBIDITIES: The patient had a cardiac arrest. She also has acute renal failure and was on hemodialysis. The patient is a diabetic and she is obese also. cc: Juan Engle MD
--- NOTE | 2018-06-15 14:32 | Diag Imaging Result Doc PS360 ---
BA SWALLOW W/VIDEO SPEECH THER - 06/15/2018 INDICATION: Dysphagia TECHNIQUE: Total fluoroscopy time was 26 seconds. 123 images were obtained. COMPARISON: None FINDINGS: There is a normal swallowing mechanism. No aspiration or penetration. Normal motility to the pharynx. Throughout the esophagus, there is some discoordinated contractions compatible with presbyesophagus. No strictures. IMPRESSION: Mild presbyesophagus. No dysphagia. Electronically signed by Yosi Rosas 06/15/2018 2:30 PM
[2018-06-15 16:41] LABS: CALCIUM 9.4 mg/dL (8.8-10.2); CREATININE 3.7 mg/dL (0.5-0.9); MAGNESIUM 2.7 mg/dL (1.5-2.7); PHOSPHORUS 5.3 mg/dL (2.7-4.5); POTASSIUM 4.9 mmol/L (3.5-5.1)
[2018-06-15 19:13] LABS: CALCIUM 9.9 mg/dL (8.8-10.2); MAGNESIUM 2.7 mg/dL (1.5-2.7); POTASSIUM 4.7 mmol/L (3.5-5.1)
[2018-06-15 20:09] LABS: ALLEN TEST YES; BE -7.1 mmoll (-3.0-3.0); BLOOD TYPE ARTERIAL; HCO3-(ACT) 19.4 mmoll (20.0-26.0); METHB 1.2 % (0.0-1.5); O2HB 95.8 % (95.0-99.0); PCO2(98.6) 31 mmHg (35-45); PO2(98.6) 96 mmHg (60-100); SAMPLE BLOOD; SAO2 98.4 % (95.0-100.0); THB 8.8 g/dL (11.5-17.4); pH(98.6) 7.36 (7.35-7.45)
[2018-06-15 20:10] LABS: MODALITY CANNULA
[2018-06-15 23:49] LABS: CALCIUM 9.8 mg/dL (8.8-10.2); CREATININE 4.1 mg/dL (0.5-0.9); MAGNESIUM 2.9 mg/dL (1.5-2.7); PHOSPHORUS 5.6 mg/dL (2.7-4.5); POTASSIUM 4.7 mmol/L (3.5-5.1)
[2018-06-16] MEDS: PROTONIX IV SCH ×2 (02:26→15:12)
[2018-06-16] MEDS: CARAFATE LIQUID GT SCH ×5 (02:26→21:10)
[2018-06-16] MEDS: SODIUM CHLORIDE 0.9% INJ SCH ×2 (02:26→15:12)
[2018-06-16] MEDS: ZYVOX 600 MG/D5W 600 MG/300 ML IVPB IV SCH ×2 (05:29→18:14)
[2018-06-16] MEDS: MERREM 1 GM in NS 50 ML IV SCH ×2 (05:29→17:30)
[2018-06-16 05:50] LABS: CALCIUM 9.8 mg/dL (8.8-10.2); CREATININE 4.4 mg/dL (0.5-0.9); MAGNESIUM 2.9 mg/dL (1.5-2.7); PHOSPHORUS 5.9 mg/dL (2.7-4.5); POTASSIUM 4.8 mmol/L (3.5-5.1)
[2018-06-16] MEDS ORDERED: NS 2,000 ML MISC PRN (06:49)
--- NOTE | 2018-06-16 07:15 | Diag Imaging Result Doc PS360 ---
EXAM: CHEST-1 VIEW 06/16/2018 HISTORY: pneumonia TECHNIQUE: AP portable at 0518 COMMENT: There is ill-defined opacity throughout much of the left lower lobe. The denser opacity in the retrocardiac area has actually improved since 06/12/2018. The inspiration is not optimal. IMPRESSION: Improved atelectasis and/or pneumonia left lower lobe. Electronically signed by Michel Vogel 06/16/2018 7:13 AM
[2018-06-16 08:20] LABS: ALLEN TEST YES; BLOOD TYPE ARTERIAL; HCO3-(ACT) 19.4 mmoll (20.0-26.0); PCO2(98.6) 33 mmHg (35-45); PO2(98.6) 86 mmHg (60-100); SAMPLE BLOOD; pH(98.6) 7.34 (7.35-7.45)
[2018-06-16 08:21] LABS: MODALITY BI PAP
[2018-06-16 09:21] LABS: CALCIUM 9.8 mg/dL (8.8-10.2); CREATININE 4.8 mg/dL (0.5-0.9); MAGNESIUM 2.8 mg/dL (1.5-2.7); PHOSPHORUS 5.5 mg/dL (2.7-4.5)
[2018-06-16 09:25] LABS: POTASSIUM 4.4 mmol/L (3.5-5.1)
--- NOTE | 2018-06-16 10:40 | PROGRESS NOTE ---
DATE: 06/16/2018 SUBJECTIVE: Ms. Cedeno was seen in the ICU today. She was undergoing dialysis session. Ms. Cedeno refers to be doing fairly okay. Denies any complaints. Per the nursing staff, the night was unremarkable. She has not been eating very well and there has not been any documentation of any bowel movement, at least since the thirtieth of last month. OBJECTIVE: Vital signs: This morning blood pressure is 108/69, pulse is 105, respirations 17 and temperature is 98.2. General exam: Ms. Cedeno is a 37-year-old morbidly obese female. She is in bed. She is not in any cardiopulmonary distress. HEENT: Mucosa is pink and moist. Anicteric. Acyanotic. Neck: Supple. No JVD. No carotid bruit. Chest: Air entry is bilaterally reduced. A few crackles posteriorly. Cardiovascular: Regular rate and rhythm. No murmurs, no rubs, no gallops. Abdomen: Soft, distended, but nontender. Bowel sounds are present, but hypoactive. Extremities: No pedal edema. Distal pulses present. NETWORK LEAD: Patient is awake, alert, follows some basic commands. Voice is very low pitch in her voice , but for the most part she follows commands. She does have weakness in the right lower extremity. LABORATORY DATA: Chemistry: Sodium is 135, potassium is 4.4, chloride is 100, bicarbonate is 17. BUN is 52, creatinine is 12.8 and glucose is 168. CURRENT MEDICATIONS: 1. Tylenol p.r.n. 2. Haldol 5 mg IV q. 6 hours p.r.n. 3. Insulin. 4. Zyvox 600 q. 12 hours; today is day six on that. 5. Meropenem 1 g q. 12 hours; today is day seven. 6. Metoprolol 5 mg IV q. 4 hours p.r.n. 7. Carafate. MICROBIOLOGY DATA: On review, there is yeast in the urine, which was done on . Blood cultures initially were positive for Klebsiella pneumonia. Repeat blood cultures have been done twice and have all been negative. ASSESSMENT: 1. Septic shock on presentation with Klebsiella pneumoniae bacteremia, improved. 2. Acute hypoxemic respiratory failure with acute respiratory distress syndrome secondary to bilateral pneumonia. This is improved. Patient is status post extubation; today is day 5 post extubation. She seems to be doing well on nasal cannula and she uses BiPAP at night. Pulmonary Medicine is on board. 3. Acute oliguric kidney injury secondary to acute tubular necrosis. No recovery. Patient is currently on renal replacement therapy. Nephrology is on board. 4. Bilateral pneumonia. Patient is on Zyvox and meropenem. Infectious Disease is on board. Today is day 7. We will follow up with their further recommendations. 5. Poor appetite. The patient has not had any bowel movement it looks like for the past 5 days. We will get a KUB to rule out any silent obstruction or versus constipation and address it accordingly. 6. Diabetic ketoacidosis on presentation, improved. 7. Global encephalopathy, improved. cc: Sandro Greer MD MTDD
--- NOTE | 2018-06-16 10:59 | Diag Imaging Result Doc PS360 ---
EXAM: KUB ABDOMEN 06/16/2018 HISTORY: SBO TECHNIQUE: KUB COMMENT: There is a fairly large amount of gas in the transverse colon. There is gas throughout the small bowel. There is some contrast remaining from the barium swallow on 06/15/2018 and portions of the small bowel. There is no definite evidence organomegaly or mass. IMPRESSION: Possible ileus. Electronically signed by Michel Vogel 06/16/2018 10:56 AM
[2018-06-16 12:14] LABS: CALCIUM 9.3 mg/dL (8.8-10.2); CREATININE 2.4 mg/dL (0.5-0.9); MAGNESIUM 2.4 mg/dL (1.5-2.7); PHOSPHORUS 2.7 mg/dL (2.7-4.5); POTASSIUM 4.4 mmol/L (3.5-5.1)
--- NOTE | 2018-06-16 14:15 | NEPHROLOGY PROGRESS NOTE ---
DATE: 06/16/2018 DATE AND TIME: Date seen 06/16/2018, time seen 0745. SUBJECTIVE: Ms. Arreola is resting quietly in bed. She is currently on 3 L nasal cannula. She opens her eyes and is able to follow commands, attempts to speak. She has very little audible voice. OBJECTIVE: Vital Signs: Temperature 98.2, blood pressure 112/77, heart rate 108, respirations 28. She has had 672 in, 1419 out. She has had 1279 off dialysis yesterday. She continues in a 13.7 L positive liter fluid balance since her admission. LABS: Sodium 137, potassium 4.8, chloride 102, CO2 16, BUN 57, creatinine 4.4, glucose 137. Anion gap is 19, calcium 9.8, phosphorus 5.9, albumin 3.1, magnesium 2.9. Previous hemoglobin 8.9 on the 4th. PHYSICAL EXAMINATION: General: This is a 37-year-old white female resting quietly in bed. She appears chronically ill, no acute distress. Skin: Warm and dry. HEENT: Normocephalic, atraumatic. Conjunctivae pale. She has ISIAH. Mucous membranes are dry. Neck : Supple. Trachea midline. Unable to determine JVD. Cardiovascular: Regular rate and rhythm. S1, S2 noted. Positive S4. Lungs: Clear to auscultation bilaterally. Equal excursion. Shallow inspiratory effort, though she remains on O2 at 3 L. Abdomen: Large, round, soft. Nontender. Positive bowel sounds, hypoactive. Genitourinary: Not inspected. Morse catheter is in place with dialysis assist. Extremities: Continues with trace to 1+ lower extremity edema. Neurologic: As above. ASSESSMENT AND PLAN: 1. Acute kidney injury. The patient continues without recovery. She has no recorded urinary output. We will plan for SLED today. We will place her on a 4 K bath. She is to dialyze for 8 hours. We will attempt to pull 3 to 4 L of ultrafiltration. Due to her clotting on SLED yesterday, we will increase her bolus to 5000 units. 2. Electrolytes and acid-base balance. These are currently acceptable with correction on dialysis. 3. Anemia. This remains low, but fairly stable. 4. Bacteremia. Followed by the primary care. She remains on renal dosed antibiotics. 5. Respiratory failure. Patient is now on 3 L nasal cannula. 6. Encephalopathy. Patient is now more awake and alert and following commands. I would like to thank you for allowing us to follow with this patient. Dictated by PATRICIA Griffin for Alejandro Corona MD Face to face encounter, data reviewed, discussed with Kendra Garcia on 06/17/18. I agree with the above assessment and plan of care. cc: PATRICIA Griffin MD [facility]
[2018-06-16 15:29] LABS: CALCIUM 9.5 mg/dL (8.8-10.2); CREATININE 2.5 mg/dL (0.5-0.9); MAGNESIUM 2.1 mg/dL (1.5-2.7); PHOSPHORUS 2.5 mg/dL (2.7-4.5); POTASSIUM 4.4 mmol/L (3.5-5.1)
--- NOTE | 2018-06-16 15:30 | INFECTIOUS DISEASE PROGRESS NO ---
DATE: 06/16/2018 PRESENT ILLNESS: The patient previously had a Klebsiella pneumonia and bacteremia. She appeared to develop a superimposed infection which is being treated now. MEDICATIONS: Currently, the patient is receiving Zyvox and meropenem. This is the 7th day of treatment with both of those agents. PHYSICAL EXAMINATION: Vital Signs: Temperature is 98.2, pulse 122, respirations 22, blood pressure 96/77. Generally, this is an ill-appearing, obese, middle-aged female. She is in no acute distress. Head/Eyes/Ears/Nose/Throat: She can hear my spoken words and see near objects. She does not have any white patches on her tongue. There is some network control supervisor discoloration of the tongue. The tongue is not sore, and the patient does not have odynophagia. Neck: No stiffness. Lungs clear to auscultation. Cardiovascular: Heart rate is regular. Abdomen is soft and nontender. The patient has a dialysis catheter in the right groin area. The site is not swollen or red. Neurologic: The patient is awake. She can move her extremities. Integument: No rash. LABORATORY DATA AND X-RAY: Chest x-ray shows improvement in the left lower lobe infiltrate. Barium swallow shows a presbyesophagus but no dysphagia. The x-ray of the abdomen shows possible ileus. Urine culture grew yeast. Blood gases showed a pH of 7.34, pO2 of 86, a pCO2 of 33. CBC shows a white count of 9160, hemoglobin 8.9, platelet count 529,000. Creatinine is 2.4. GFR is 22. ASSESSMENT AND PLAN: The patient has a superimposed infection. My plan is to continue with Zyvox and meropenem. COMORBIDITIES: Cardiac arrest, acute renal failure, hemodialysis, and diabetes mellitus. cc: Juan Engle MD
[2018-06-16 19:41] LABS: CALCIUM 9.6 mg/dL (8.8-10.2); CREATININE 2.9 mg/dL (0.5-0.9); MAGNESIUM 2.2 mg/dL (1.5-2.7); PHOSPHORUS 3.2 mg/dL (2.7-4.5); POTASSIUM 4.2 mmol/L (3.5-5.1)
[2018-06-16 20:12] LABS: ALLEN TEST YES; BLOOD TYPE ARTERIAL; HCO3-(ACT) 20.2 mmoll (20.0-26.0); METHB 0.8 % (0.0-1.5); O2(CT) 12.9 mL/dL (15.0-23.0); O2HB 95.7 % (95.0-99.0); PCO2(98.6) 28 mmHg (35-45); PO2(98.6) 74 mmHg (60-100); SAMPLE BLOOD; SAO2 98.2 % (95.0-100.0); THB 9.5 g/dL (11.5-17.4); pH(98.6) 7.41 (7.35-7.45)
[2018-06-16 20:13] LABS: MODALITY CANNULA
[2018-06-17 00:31] LABS: CALCIUM 9.8 mg/dL (8.8-10.2); CREATININE 3.2 mg/dL (0.5-0.9); MAGNESIUM 2.3 mg/dL (1.5-2.7); PHOSPHORUS 3.7 mg/dL (2.7-4.5); POTASSIUM 4.1 mmol/L (3.5-5.1)
[2018-06-17] MEDS: PROTONIX IV SCH (02:38)
[2018-06-17] MEDS: CARAFATE LIQUID GT SCH ×4 (02:38→21:19)
[2018-06-17] MEDS: SODIUM CHLORIDE 0.9% INJ SCH (02:39)
[2018-06-17 04:11] LABS: CREATININE 3.5 mg/dL (0.5-0.9); MAGNESIUM 2.5 mg/dL (1.5-2.7); PHOSPHORUS 4.4 mg/dL (2.7-4.5); POTASSIUM 4.2 mmol/L (3.5-5.1)
[2018-06-17] MEDS: ZYVOX 600 MG/D5W 600 MG/300 ML IVPB IV SCH ×2 (05:06→17:06)
[2018-06-17] MEDS: MERREM 1 GM in NS 50 ML IV SCH ×2 (05:06→17:06)
[2018-06-17] MEDS ORDERED: VASELINE TOP PRN (07:32)
[2018-06-17 08:14] LABS: ALLEN TEST YES; BLOOD TYPE ARTERIAL; HCO3-(ACT) 19.4 mmoll (20.0-26.0); METHB 1.5 % (0.0-1.5); MODALITY CANNULA; O2HB 95.3 % (95.0-99.0); PCO2(98.6) 30 mmHg (35-45); PO2(98.6) 94 mmHg (60-100); SAMPLE BLOOD; SAO2 98.5 % (95.0-100.0); THB 9.6 g/dL (11.5-17.4); pH(98.6) 7.37 (7.35-7.45)
[2018-06-17] MEDS: BASAGLAR SUBQ SCH (09:30)
[2018-06-17 09:48] LABS: CALCIUM 8.5 mg/dL (8.8-10.2); CREATININE 3.5 mg/dL (0.5-0.9); MAGNESIUM 2.1 mg/dL (1.5-2.7); POTASSIUM 3.4 mmol/L (3.5-5.1)
--- NOTE | 2018-06-17 10:34 | PROGRESS NOTE ---
DATE: 06/17/2018 SUBJECTIVE: This morning, Ms. Cedeno was seen sitting up and eating her breakfast. Still in the ICU, but she is a lot more alert and more communicative. No acute changes overnight. OBJECTIVE: Vital signs: Blood pressure is 164/95, pulse is 123, respirations 18, temperature 98.9. The patient was saturating 100% on 2 L of nasal cannula. On general exam, Ms. Cedeno is a 37-year-old, morbidly obese, female. She was sitting up in the bed and did not seem to be in any cardiopulmonary distress. HEENT: Mucosa was pink and moist. Anicteric. Acyanotic. Neck is supple. No JVD. No carotid bruit. There is no thyromegaly. Respiratory System: Air entry was bilaterally reduced posteriorly with some few crackles. Cardiovascular: Regular rate and rhythm. No murmurs, no rubs, no gallops. GI: Abdomen was soft, distended, but nontender. Bowel sounds were present. Extremities: No pedal edema. Distal pulses were present. ROLL TABLE OPERATOR: Patient was awake, alert, will follow some basic commands and will move all extremities upon command. LABORATORY DATA: There is no CBC this morning. The chemistry shows sodium is 138, potassium is 3.4, chloride is 104. Bicarb is 14 with a gap of 16. BUN is 28 and creatinine is 3.5. The patient's intakes and outputs: Urine output documented was 27 mL in 24 hours. The patient had dialysis yesterday; 2141 was ultrafiltrated. IMAGING: Imaging studies yesterday. KUB did show a possible ileus. CURRENT MEDICATIONS: Have also been reviewed. ASSESSMENT: 1. Septic shock on presentation with Klebsiella pneumoniae bacteremia, improved. 2. Acute hypoxemic respiratory failure with acute respiratory distress syndrome secondary to bilateral pneumonia, improved. Patient is day 6 status post extubation. Currently on nasal cannular and cycles between BiPAP at night. 3. Acute oliguric kidney injury secondary to acute tubular necrosis. No recovery. Patient continues to be receiving renal replacement therapy nephrology is on board. Over 2000 mL ultrafiltration was done yesterday. 4. Bilateral pneumonia. Patient is currently on Zyvox and meropenem. Today is day 8 on both antibiotics. ID is on board. 5. Diabetic ketoacidosis on presentation, improved. 6. Global encephalopathy, improving. 7. History of diabetes mellitus with presenting A1c of 13.0, consistent with noncompliance. The patient was on insulin drip up until this morning; however, her gap has significantly improved. We have discontinued the drip and put the patient on glargine 20 units daily and sliding scale, and we will titrate her insulin needs as needed. In general, we are going to continue with the current antibiotics and the current ICU care. Physical therapy is also on board. Will get OT referral. Hopefully, in the next 24 or 48 hours, we can get Ms. Cedeno out of the ICU. cc: Sandro Greer MD
--- NOTE | 2018-06-17 11:19 | PROGRESS NOTE ---
DATE: 06/17/2018 Ms. Cedeno is awake, alert, attentive. She follows simple commands consistently. She has full lateral eye movement with passive head turning. At rest, there is slight right amblyopia. Pupils react to light. Limb tone is symmetric. IMPRESSION: Global encephalopathy appears to be resolving. I do not have any new suggestion from a neurologic standpoint today. cc: Isaiah Meade III, MD
[2018-06-17] MEDS: HUMULIN R SUBQ SCH ×3 (11:32→21:23)
[2018-06-17 12:28] LABS: CREATININE 3.9 mg/dL (0.5-0.9); MAGNESIUM 2.6 mg/dL (1.5-2.7); PHOSPHORUS 5.9 mg/dL (2.7-4.5); POTASSIUM 4.3 mmol/L (3.5-5.1)
[2018-06-17] MEDS ORDERED: DULCOLAX PR PRN (16:30)
[2018-06-17] MEDS: LACTULOSE PO SCH (21:19)
[2018-06-17] MEDS: ZOFRAN IV PRN (21:32)
--- NOTE | 2018-06-17 21:51 | NEPHROLOGY PROGRESS NOTE ---
DATE: 06/17/2018 SUBJECTIVE: Awake, alert. No complaint of pain, shortness of breath, nausea, vomiting. OBJECTIVE: Vital Signs: Blood pressure 135/84, heart rate 111, respirations 20, temperature 99.0. General: No acute distress. Skin: Warm and dry. Conjunctivae are pink. Neck: Neck veins are not distended. Heart: Regular, tachycardic with an S4. Lungs: Equal. No crackles. Abdomen: Soft, nontender. Bowel sounds present. Extremities: No edema, clubbing or cyanosis. IMPRESSION: 1. Acute kidney injury. No recovery. Electrolytes are in target. 2. Moderate metabolic acidosis. Her next planned dialysis treatment will be tomorrow. cc: Alejandro Corona MD
--- NOTE | 2018-06-18 01:48 | INFECTIOUS DISEASE PROGRESS NO ---
DATE: 06/17/2018 PRESENT ILLNESS: The patient previously was treated for Klebsiella pneumonia and bacteremia. I think she had a superimposed infection for which she is getting antibiotics now. MEDICATIONS: This is the 8th day of treatment with Zyvox and meropenem. PHYSICAL EXAMINATION: Vital Signs: Temperature is 99 degrees, pulse 112, respirations 18, blood pressure 119/78. General: This is a ill-appearing, obese, middle-aged female. She is in no acute distress. Head/eyes/ears/nose/throat: She can hear my spoken words and she can see near objects. She does not have any white patches on her tongue and the patient told me her tongue is not sore. Lungs: Clear to auscultation. Cardiovascular: Heart rate is rapid and regular. Abdomen: Soft and nontender. In the right groin the patient has a dialysis catheter in place. The site is not erythematous. LAB AND X-RAY: Blood gases for today show a pH of 7.37, a PO2 of 94, and a pCO2 of 30. Creatinine is 3.9. GFR is 13. There is no radiographic study for today. ASSESSMENT AND PLAN: The patient has a superimposed infection for which I am treating with Zyvox and meropenem. For tomorrow I am going to order a complete blood count. COMORBIDITIES: Cardiac arrest, acute renal failure, hemodialysis, and diabetes mellitus. cc: Juan Engle MD
[2018-06-18] MEDS: CARAFATE LIQUID GT SCH ×2 (02:02→07:46)
[2018-06-18 04:43] LABS: ALLEN TEST YES; BE -9.5 mmoll (-3.0-3.0); BLOOD TYPE ARTERIAL; HCO3-(ACT) 17.5 mmoll (20.0-26.0); METHB 1.2 % (0.0-1.5); O2(CT) 17.3 mL/dL (15.0-23.0); O2HB 95.4 % (95.0-99.0); PCO2(98.6) 31 mmHg (35-45); PO2(98.6) 101 mmHg (60-100); SAMPLE BLOOD; SAO2 98.1 % (95.0-100.0); THB 12.8 g/dL (11.5-17.4); pH(98.6) 7.31 (7.35-7.45)
[2018-06-18 04:44] LABS: MODALITY CANNULA
[2018-06-18] MEDS ORDERED: TIGHT: 0.2 ML/HR FOR DIALYSIS MISC PRN (05:40)
[2018-06-18] MEDS ORDERED: HEPARIN IV PRN (05:40)
[2018-06-18] MEDS ORDERED: NS 2,000 ML MISC PRN (05:40)
[2018-06-18 05:46] LABS: BASO# 0.17 X1000 (0.0-0.2); BASO% 2.4 % (0.0-0.8); EOS# 0.07 X1000 (0.0-0.7); HEMOGLOBIN 9.2 g/dL (12.0-16.0); IMM GRAN# 0.03 X1000 (0.0-0.04); IMM GRAN% 0.4 % (0.0-0.5); LYMPH# 2.06 X1000 (1.2-3.4); LYMPH% 29.1 % (20.5-51.1); MCH 26.7 PG (27-31); MCHC 30.7 g/dL (33-37); MONO# 0.67 X1000 (0.11-0.59); MONO% 9.5 % (1.7-9.3); MPV 9.2 FL (7.4-10.4); NEUT# 4.08 X1000 (1.4-6.5); NEUT% 57.6 % (42.2-75.2); PLT 552 X1000 (130-400); RBC 3.45 XMIL (4.2-5.4); RDW 17.8 % (11.5-14.5); WBC 7.08 X1000 (4.8-10.8)
[2018-06-18] MEDS: MERREM 1 GM in NS 50 ML IV SCH ×2 (05:50→17:49)
[2018-06-18] MEDS: ZYVOX 600 MG/D5W 600 MG/300 ML IVPB IV SCH ×2 (05:50→17:49)
[2018-06-18 06:21] LABS: CALCIUM 10.2 mg/dL (8.8-10.2); CREATININE 4.8 mg/dL (0.5-0.9); MAGNESIUM 2.8 mg/dL (1.5-2.7); PHOSPHORUS 8.2 mg/dL (2.7-4.5); POTASSIUM 3.7 mmol/L (3.5-5.1)
[2018-06-18] MEDS: HUMULIN R SUBQ SCH ×4 (07:19→19:59)
[2018-06-18] MEDS: LACTULOSE PO SCH ×2 (08:15→20:50)
[2018-06-18] MEDS: PROTONIX IV SCH (08:15)
[2018-06-18] MEDS: BASAGLAR SUBQ SCH (08:15)
[2018-06-18] MEDS: SODIUM CHLORIDE 0.9% INJ SCH (08:16)
--- NOTE | 2018-06-18 10:01 | INFECTIOUS DISEASE PROGRESS NO ---
DATE: 06/18/2018 PRESENT ILLNESS: Ms. Cedeno has been successfully treated for a Klebsiella bacteremia. At this point, she is receiving treatment for a superimposed infection with pneumonia. The patient has an acute kidney injury for which she is receiving dialysis. MEDICATIONS: Today is day 9 of treatment with Zyvox 600 mg IV every 12 hours and meropenem 1 g IV every 12 hours as a renally modified dose. PHYSICAL EXAMINATION: Vital Signs: Temperature is 98.8, pulse rate 113, respiratory rate 19, blood pressure 108/74. O2 saturation is 95% on 2 L nasal cannula. General: This is a critically ill-appearing obese female. She is middle-aged female. She is lying in the bed currently in no acute distress. HEENT: Atraumatic, normocephalic. Oral mucous membranes are pink and moist. Conjunctivae are pink. Neck is supple. Trachea is midline. Cardiovascular: Heart rate and rhythm are regular and fast. Sinus tachycardia on the monitor. Radial and pedal pulses are palpable bilaterally. Respiratory: Lung sounds are clear in the upper lobe, diminished in the bases. Abdomen is soft, obese, and nontender. Bowel sounds are active. Integumentary: There is a right femoral Vas-Cath in place without any edema or erythema. Neurologic: She is drowsy but arousable and appropriate. Severe generalized weakness is noted. LABORATORY AND X-RAY: Today, her white count is 7.08, hemoglobin 9.2, platelet count 552,000. On 2 L nasal cannula this morning, her pH was 7.31, pCO2 of 31, PO2 of 101, HCO3 of 17.5. Creatinine is 4.8, GFR is 10. No imaging reports today. ASSESSMENT AND PLAN: Ms. Cedeno is being treated for pneumonia. We will check another chest x- ray in the morning. She has a normal white count and has been afebrile. We will go ahead and continue her Zyvox and meropenem as ordered. These plans have been discussed with and recommended by Dr. Engle. COMORBIDITIES: Obesity, diabetes mellitu,s which is poorly controlled, and severe deconditioning. Dictated by PATRICIA Ward for Juan Engle MD This chart was documented by, PATRICIA Ward and accurately reflects the services performed, treatment plan and medical decisions as attested by the providers signature Juan Engle MD. cc: Juan Engle MD MTDD
--- NOTE | 2018-06-18 10:35 | PROGRESS NOTE ---
DATE: 06/18/2018 SUBJECTIVE: This morning, Ms. Cedeno refers to be feeling a lot better. Per the nursing staff, she has had about 3 large bowel movements in 24 hours. But this morning, she does not want to eat. OBJECTIVE: Vital signs: Blood pressure is 108/74, pulse is 113, respirations 18, temperature is 98.8 degrees. General: Ms. Cedeno is a 89-year-old female. She is in bed. She is not in any cardiopulmonary distress. Mucosa: Ruso and moist. Anicteric. Acyanotic. Neck: Supple. Chest: Good air entry bilateral, a few crepitations posteriorly. Cardiovascular: Regular rate and rhythm. No murmurs, no rubs, no gallops. GI: Abdomen is soft, distended but nontender. Bowel sounds present. Extremities: No pedal edema. Distal pulses are present. 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 The patient does have a left femoral central dialysis catheter. LABORATORY DATA: 1. WBC 7.08, hemoglobin is 9.2, platelet count of 552. 2. Chemistry is also reviewed. Bicarb is 14 with a gap of 24. Creatinine has gone up to 4.8. 3. I' and O's: Urine output was just 35 in 24 hours. The patient's last dialysis was 3 days ago. I think she is scheduled for dialysis this morning. ASSESSMENT: 1. Septic shock with Klebsiella pneumoniae bacteremia has improved. Subsequent blood cultures have been negative. 2. Acute hypoxemic respiratory failure, improved. The patient is currently day 7 status post extubation, currently on nasal cannula oxygenation and doing pretty good. 3. Acute oliguric kidney injury secondary to acute tubular necrosis with no recovery. Patient is on dialysis. Nephrology is on board. I think there is a plan for session today. 4. Diabetic ketoacidosis on presentation improved. 5. Global encephalopathy, improving. 6. Diabetes mellitus with presenting A1c of 13.0, consistent with noncompliance. The patient is currently on insulin regimen. Glucose are better. 7. 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 Physical therapy has been consulted, and we will continue to work with them, and patient will continue to be seen. 8. High anion gap metabolic acidosis. I think this is probably all related to the degree of her renal failure. Acetone level is negative. This morning, glucose levels are a lot better. I do not think the patient is in DKA. Hopefully after dialysis, this will also improve. So, in general, I think Ms. Cedeno is getting better. She is still with non-recovery kidney functions, and she is needing renal replacement therapy. I think there is a session plan for today. We will continue with her current management plan. Mr. Cedeno will continue to be seen in the ICU. cc: Sandro Greer MD
--- NOTE | 2018-06-18 15:37 | NEPHROLOGY PROGRESS NOTE ---
DATE: 06/18/2018 SUBJECTIVE: She is alert. Answers questions. No complaints. OBJECTIVE: Vital Signs: Blood pressure 121/80, heart rate 112, respirations 19, afebrile. General: Young white female, no acute distress. Skin: Warm and dry. HEENT: Conjunctivae are pink. Neck: Neck veins are not distended. Heart: Regular. No gallops. Lungs: Equal. No crackles. Abdomen: Soft, nontender. Bowel sounds present. Extremities: No edema, clubbing, or cyanosis. IMPRESSION: Acute kidney injury. No recovery. Moderate metabolic acidosis but electrolytes are in target and volume status in target. Standard intermittent hemodialysis today using a 3 potassium bath. Minimal ultrafiltration. cc: Alejandro Corona MD
[2018-06-19 04:35] LABS: BASO# 0.15 X1000 (0.0-0.2); BASO% 2.7 % (0.0-0.8); EOS# 0.09 X1000 (0.0-0.7); EOS% 1.6 % (0.0-10.0); HEMOGLOBIN 10.2 g/dL (12.0-16.0); IMM GRAN# 0.04 X1000 (0.0-0.04); IMM GRAN% 0.7 % (0.0-0.5); LYMPH# 1.73 X1000 (1.2-3.4); LYMPH% 31.2 % (20.5-51.1); MCHC 30.9 g/dL (33-37); MCV 87.3 FL (81-99); MONO# 0.47 X1000 (0.11-0.59); MONO% 8.5 % (1.7-9.3); NEUT# 3.07 X1000 (1.4-6.5); NEUT% 55.3 % (42.2-75.2); PLT 406 X1000 (130-400); RBC 3.78 XMIL (4.2-5.4); RDW 17.9 % (11.5-14.5); WBC 5.55 X1000 (4.8-10.8)
[2018-06-19 04:57] LABS: ALLEN TEST YES; BE -6.9 mmoll (-3.0-3.0); BLOOD TYPE ARTERIAL; HCO3-(ACT) 19.5 mmoll (20.0-26.0); O2(CT) 14.1 mL/dL (15.0-23.0); O2HB 95.3 % (95.0-99.0); PCO2(98.6) 29 mmHg (35-45); PO2(98.6) 88 mmHg (60-100); SAMPLE BLOOD; SAO2 97.9 % (95.0-100.0); THB 10.4 g/dL (11.5-17.4); pH(98.6) 7.38 (7.35-7.45)
[2018-06-19 04:58] LABS: CALCIUM 9.6 mg/dL (8.8-10.2); CREATININE 3.8 mg/dL (0.5-0.9); MAGNESIUM 2.4 mg/dL (1.5-2.7); PHOSPHORUS 5.7 mg/dL (2.7-4.5)
[2018-06-19 04:58] LABS: MODALITY ROOM AIR
[2018-06-19] MEDS: ZYVOX 600 MG/D5W 600 MG/300 ML IVPB IV SCH ×3 (05:18→17:39)
[2018-06-19] MEDS: MERREM 1 GM in NS 50 ML IV SCH ×3 (05:18→17:39)
[2018-06-19] MEDS: HUMULIN R SUBQ SCH ×4 (06:20→20:45)
--- NOTE | 2018-06-19 07:01 | Diag Imaging Result Doc PS360 ---
EXAM: CHEST-PORTABLE 06/19/2018 HISTORY: pneumonia TECHNIQUE: AP portable at 0511 COMMENT: Compared to 06/16/2018 there has been improvement in the alveolar opacities in the left lower lobe. The right middle lobe is also somewhat clearer than it was. IMPRESSION: Improved pneumonia. Electronically signed by Michel Vogel 06/19/2018 6:59 AM
[2018-06-19] MEDS: LACTULOSE PO SCH ×2 (09:10→20:42)
[2018-06-19] MEDS: PROTONIX IV SCH (09:10)
[2018-06-19] MEDS: BASAGLAR SUBQ SCH (09:10)
--- NOTE | 2018-06-19 12:34 | PROGRESS NOTE ---
DATE: 06/19/2018 SUBJECTIVE: This morning, Ms. Cedeno refers to be doing a lot better. Denies any complaints. She has not had any breakfast yet. OBJECTIVE: Vital signs: Blood pressure is 115/79, pulse 114, respirations 16, temperature is 98.8 degrees. The patient was saturating about 96% on room air. General: Ms. Cedeno is a 37- year-old female. She is in bed. She is not in any cardiopulmonary distress. HEENT: Mucosa is pink and moist. Anicteric. Acyanotic. Neck: Supple. Chest: Good air entry bilateral, there were no crepitations, no rhonchi. Cardiovascular: Slightly tachycardic, but no murmurs, no rubs, no gallops. GI: Abdomen soft, nontender. Bowel sounds present. No hepatosplenomegaly. Extremities: No pedal edema. Distal pulses are present. The patient does have a dialysis catheter in the left femoral vein. INTEGRATION ARCHITECT: Patient is awake, alert, and oriented. There is no focal neurological deficit. INPUT AND OUTPUT: Urine output was only 20 mL in 24 hours yesterday. LABORATORY DATA: WBC is 5.55, hemoglobin is 10.2, platelet count of 406,000. Chemistry is also reviewed. Sodium is 133, BUN is down to 32, creatinine is down to 3.8. The patient had dialysis yesterday. CURRENT MEDICATIONS: Also have been reviewed. She is on Zyvox and meropenem. ASSESSMENT: 1. Septic shock with Klebsiella pneumoniae bacteremia on presentation, improved. Subsequent blood cultures have been negative. 2. Acute hypoxemic respiratory failure, resolved. Patient was intubated. She is currently day 8 post extubation and doing well. 3. Acute oliguric/anuric kidney injury secondary to acute tubular necrosis. No recovery. Patient is on intermittent standard dialysis. Nephrology is on board. 4. Diabetic ketoacidosis on presentation, improved. 5. Global encephalopathy, resolved. 6. Diabetes mellitus with presenting A1c of 13. The patient is currently on insulin regimen. Glucose checks have been under control. 7. Generalized weakness and deconditioning secondary to critical illness polyneuropathy. Physical Therapy is on board. 8. High anion gap metabolic acidosis, improved some with dialysis. PLAN: So in general, I think Ms. Cedeno is doing a lot better. We are going to get her transferred from the ICU to regular floor. We will continue with physical therapy. We will encourage the patient to sit up in a chair at least twice per day and will follow up with Nephrology for their recommendations. The patient has not shown any recovery from a kidney standpoint, so I think she is probably going to be needing dialysis for some time, in which case she would need a more permanent dialysis catheter than the Vas-Cath that she has. We will, however, defer further recommendations on that to our Nephrology colleagues. cc: Sandro Greer MD
[2018-06-19] MEDS: MEGACE PO SCH (17:39)
[2018-06-19] MEDS: REMERON PO SCH (20:42)
--- NOTE | 2018-06-20 01:51 | NEPHROLOGY PROGRESS NOTE ---
DATE: 06/19/2018 TIME SEEN: 08:40 a.m. SUBJECTIVE: The patient is resting in bed. She is awake, in no acute distress. OBJECTIVE: Vital Signs: Temperature is 97.8 degrees, pulse is 115, respiratory rate is 14, blood pressure is 119/72. Intake 1.5 L, output 2.6 mL. Of this 1.6 was UF removal. PHYSICAL EXAMINATION: General: Middle-aged female, resting in bed, no acute distress. HEENT: Normocephalic and atraumatic. ISIAH. Neck: Supple. No JVD. Cardiovascular: Regular rate and rhythm. No gallop. Pulmonary: Clear bilaterally. No increased work of breathing. Abdomen: Obese, soft, positive bowel sounds. Genitourinary: Not inspected. Extremities: No clubbing, cyanosis or edema. Integumentary: Skin is pale, warm and dry. LABORATORY DATA: WBC of 5.5, hemoglobin 10.2, sodium 133, potassium 5.0, CO2 is 14, creatinine 3.8. ASSESSMENT AND PLAN: Acute kidney injury without recovery. We will plan to dialyze her on a continued Friday, , Friday schedule. I will evaluate her labs in the morning to determine dialysate bath and treatment plan. Dictated by PATRICIA Kohler for Alejandro Corona MD cc: Alejandro Corona MD
--- NOTE | 2018-06-20 02:53 | INFECTIOUS DISEASE PROGRESS NO ---
DATE: 06/19/2018 PRESENT ILLNESS: The patient now is being treated for a presumed superimposed pneumonia. MEDICATIONS: This is the 10th day of treatment with Zyvox and meropenem. PHYSICAL EXAMINATION: Vital Signs: Temperature is 97.8 degrees, pulse 111, respiratory rate 16, blood pressure 117/77. General: This is a fairly healthy-appearing, but obese middle-aged female. She is in no acute distress. Head, eyes, ears, nose, and throat: She can hear my spoken words and see near objects. She is able to talk and carry on a coherent conversation. She does not have any white patches on her tongue. Neck: No stiffness. Lungs: Clear to auscultation. Cardiovascular: Heart rate is regular. Abdomen: Soft and nontender. The patient has in the right groin a Vas-Cath in place. There is no erythema or drainage. Neurologic: The patient is awake today, she can move her extremities. LAB AND X-RAY: Chest x-ray shows improvement in the patient's infiltrates. CBC shows a white count of 5550, hemoglobin 10.2, and platelet count 406,000. Blood gases are a pH of 7.38, PO2 of 88, pCO2 is 29. Creatinine is 3.8. GFR is 13. ASSESSMENT AND PLAN: The patient is being treated for a superimposed pneumonia. The patient is scheduled to have a complete blood count at the beginning of the week and I have also ordered a portable chest x-ray. I think most likely at the early part of the week the patient's antibiotics will be able to be discontinued. COMORBIDITIES: The patient is obese, she has diabetes mellitus which is poorly controlled, and she has at this time severe deconditioning. cc: Juan Engle MD
--- NOTE | 2018-06-20 04:30 | PULMONOLOGY PROGRESS NOTE ---
DATE: 06/19/2018 SUBJECTIVE: The patient is awake, alert, and conversant. She is without specific complaints. OBJECTIVE: Vital Signs: The patient has been afebrile for the last 24 hours. Blood pressure 124/76, heart rate 103, respiratory rate 18, oxygen saturation 100%. HEENT: Pupils are equal and reactive. Oropharynx is clear. Neck: Supple. Chest: Reveals good air entry bilaterally, without wheezing or rhonchi. Cardiac: S1-S2. Abdomen: Soft , and without hepatosplenomegaly. Extremities: Without edema. LABORATORIES: Chest x-ray reveals decreasing infiltrates in the left lower lobe and right middle lobe. IMPRESSION: A 37-year-old with diabetic ketoacidosis, hypoxemic respiratory failure, pneumonia, acute renal failure. She remains on dialysis. She has had marked improvement since the last time I evaluated her 2 weeks ago. RECOMMENDATIONS: 1. Continue bronchial hygiene. 2. Continue to wean oxygen as tolerated. 3. Complete antibiotics under the direction of Dr. Engle. 4. Anticipate discontinuing antibiotics in the near future. 5. Continue physical therapy. cc: John Madison MD [facility]
[2018-06-20] MEDS: MERREM 1 GM in NS 50 ML IV SCH ×2 (05:00→17:22)
[2018-06-20] MEDS: ZYVOX 600 MG/D5W 600 MG/300 ML IVPB IV SCH ×2 (05:00→18:02)
[2018-06-20] MEDS ORDERED: INSULIN PEN NEEDLES ONE (06:03)
[2018-06-20 06:07] LABS: ALLEN TEST YES; BE -7.1 mmoll (-3.0-3.0); BLOOD TYPE ARTERIAL; HCO3-(ACT) 19.4 mmoll (20.0-26.0); PCO2(98.6) 29 mmHg (35-45); PO2(98.6) 87 mmHg (60-100); SAMPLE BLOOD; pH(98.6) 7.37 (7.35-7.45)
[2018-06-20 06:09] LABS: MODALITY ROOM AIR
[2018-06-20] MEDS: HUMULIN R SUBQ SCH ×4 (06:32→22:29)
[2018-06-20 07:40] LABS: BASO# 0.16 X1000 (0.0-0.2); BASO% 2.7 % (0.0-0.8); EOS# 0.14 X1000 (0.0-0.7); EOS% 2.3 % (0.0-10.0); HEMATOCRIT 28.8 % (37.0-47.0); IMM GRAN# 0.02 X1000 (0.0-0.04); IMM GRAN% 0.3 % (0.0-0.5); LYMPH# 1.77 X1000 (1.2-3.4); LYMPH% 29.6 % (20.5-51.1); MCH 26.8 PG (27-31); MCHC 31.3 g/dL (33-37); MCV 85.7 FL (81-99); MONO# 0.54 X1000 (0.11-0.59); MPV 8.7 FL (7.4-10.4); NEUT# 3.35 X1000 (1.4-6.5); NEUT% 56.1 % (42.2-75.2); PLT 464 X1000 (130-400); RBC 3.36 XMIL (4.2-5.4); RDW 17.3 % (11.5-14.5); WBC 5.98 X1000 (4.8-10.8)
[2018-06-20 08:13] LABS: CALCIUM 9.6 mg/dL (8.8-10.2); CREATININE 5.1 mg/dL (0.5-0.9); MAGNESIUM 2.4 mg/dL (1.5-2.7); PHOSPHORUS 6.8 mg/dL (2.7-4.5)
[2018-06-20] MEDS ORDERED: TIGHT: 0.2 ML/HR FOR DIALYSIS MISC PRN (08:28)
[2018-06-20] MEDS ORDERED: HEPARIN IV PRN (08:28)
[2018-06-20] MEDS ORDERED: NS 2,000 ML MISC PRN (08:28)
[2018-06-20] MEDS: LACTULOSE PO SCH ×2 (11:56→22:26)
[2018-06-20] MEDS: MEGACE PO SCH ×3 (11:56→17:22)
[2018-06-20] MEDS: BASAGLAR SUBQ SCH (13:21)
[2018-06-20] MEDS: PROTONIX IV SCH (13:21)
[2018-06-20] MEDS: MIRALAX PO PRN (15:38)
[2018-06-20] MEDS: LOPRESSOR IV PRN ×2 (18:20→22:42)
[2018-06-20] MEDS ORDERED: PROLIXIN PO SCH (21:00)
--- NOTE | 2018-06-20 21:29 | PROGRESS NOTE ---
DATE: 06/20/2018 SUBJECTIVE: This morning Ms. Cedeno refers to be doing fairly okay. She was having her breakfast at the time of the encounter and she was also going through a session of dialysis. OBJECTIVE: Vitals: Blood pressure is 131/81, pulse is 110, respiration is 16, temperature is 98.1 degrees, patient was saturating 98% on room air. General: Ms. Cedeno is a 37-year-old female she was in bed. She did not seem to be in any cardiopulmonary distress. Mucosa was pink and moist. Anicteric. Acyanotic. Neck: Supple. Chest: Good air entry bilaterally. Few crackles posteriorly but no rhonchi, no wheezing, no accessory muscle use. Cardiovascular: Regular rate and rhythm. No murmurs, no rubs, no gallops. Abdomen: Soft, nontender. Bowel sounds present. No hepatosplenomegaly. Extremities: No pedal edema. Distal pulses present. There is a catheter in the left femoral vein for dialysis. 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 There is no focal neurological deficit. Patient I's and O's only 50 mL of urine output was documented yesterday. 3000 mL ultrafiltration is planned for today. ASSESSMENT: 1. Septic shock with Klebsiella pneumoniae bacteremia on presentation improved. 2. Acute hypoxemic respiratory failure, patient was successfully extubated, today is day 9 post extubation, she is actually currently on room air. 3. Acute oliguric/anuric kidney injury secondary to acute tubular necrosis, no recovery, patient is getting dialysis on Tuesdays, and Saturdays. Nephrology is on board. 4. Diabetic ketoacidosis on presentation resolved. 5. Global encephalopathy improved. 6. Diabetes mellitus with presenting A1c of 13, patient currently on insulin regimen and glucose under control. 7. Generalized weakness and deconditioning secondary to critical illness polyneuropathy. Physical therapy is on board. 8. High anion gap metabolic acidosis improved with dialysis. Will start the patient on oral sodium bicarb. In general I think Ms. Cedeno is clinically stable. We understand she is having some issues with her diet, does not seems to have very good appetite so will put her on Megace and Remeron to see if the appetite can improve. Will continue with physical therapy recommendations and depending on how her strength is by Friday I think decision will be made if she will go to a rehab. We also pending final recommendations from Nephrology as to patient vascular access for intermediate to long-term dialysis needs. cc: Sandro Greer MD
[2018-06-20] MEDS: REMERON PO SCH (22:26)
[2018-06-20] MEDS: SODIUM BICARBONATE PO SCH (22:26)
--- NOTE | 2018-06-21 04:37 | NEPHROLOGY PROGRESS NOTE ---
DATE: 06/20/2018 SUBJECTIVE: The patient currently undergoing hemodialysis. She is awake and alert. No complaints. OBJECTIVE: Vital Signs: Temperature 98 degrees, pulse 110, respiratory rate 16, blood pressure 131/80, intake 470 mL,output 50 mL. General: This is an ill-appearing middle-aged female, resting in bed, currently undergoing dialysis. She does not appear in distress. HEENT: Normocephalic, atraumatic. PERRL. Neck: Supple. No JVD noted. Cardiovascular: Controlled rate. Pulmonary: Equal excursion. No increased work of breathing. Abdomen: Soft. Positive bowel sounds. : Not inspected. Extremities: No edema. LAB DATA: WBC of 5.9, hemoglobin 9.0. Sodium 132, potassium 4.0, CO2 of 15, creatinine 5.1. ASSESSMENT AND PLAN: 1. Acute kidney injury, without recovery. She is on a 2K bath/2 to 3 L fluid removal/3.5 hour treatment. We will keep her on a Friday, , Friday schedule while she remains in the hospital. 2. Previous pneumonia and respiratory failure. Followed by Primary and Pulmonology. 3. Medication review: No changes. Dictated by PATRICIA Kohler for Alejandro Corona MD cc: Alejandro Corona MD
[2018-06-21] MEDS: MERREM 1 GM in NS 50 ML IV SCH ×2 (05:26→18:19)
[2018-06-21] MEDS: SYNTHROID PO SCH (06:04)
[2018-06-21] MEDS: ZYVOX 600 MG/D5W 600 MG/300 ML IVPB IV SCH ×2 (06:04→18:20)
[2018-06-21] MEDS: HUMULIN R SUBQ SCH ×4 (06:07→21:35)
[2018-06-21] MEDS: LOPRESSOR IV PRN ×2 (06:17→16:32)
--- NOTE | 2018-06-21 07:28 | PULMONOLOGY PROGRESS NOTE ---
DATE: 06/20/2018 SUBJECTIVE: he patient is awake, alert, and conversant. She was wondering when she gets to go home. She remains weak. She has been transitioned off nasal cannula. OBJECTIVE: Vital Signs: Blood pressure 131/80, heart rate 110, respiratory rate 16, oxygen saturation 98%. HEENT: Pupils are equal and reactive. Oropharynx is clear. Neck: Supple. Chest: Reveals good air entry bilaterally without wheezing or rhonchi. Cardiac Examination: S1- S2. Abdomen: Soft and without hepatosplenomegaly. Extremities: Without edema. Laboratories: White blood count 5.98, hemoglobin 9.0, platelet count 464,000. Arterial blood gas 9.37, pCO2 of 29, PO2 of 87. IMPRESSION: A 37-year-old with diabetic ketoacidosis, hypoxemic respiratory failure, pneumonia, and acute renal failure. The patient continues to improve. Her chest exam is clear. She has been transitioned back to room air. RECOMMENDATIONS: 1. Continue bronchial hygiene. 2. Complete antibiotics under the direction of Dr. Juan Engle. 3. Continue physical therapy with the anticipation of discharge to a rehab facility. 4. No additional recommendations. Please call tomorrow if needed. cc: John Madison MD
[2018-06-21 07:35] LABS: BASO# 0.14 X1000 (0.0-0.2); BASO% 2.3 % (0.0-0.8); EOS# 0.18 X1000 (0.0-0.7); HEMATOCRIT 31.9 % (37.0-47.0); HEMOGLOBIN 9.9 g/dL (12.0-16.0); LYMPH# 1.66 X1000 (1.2-3.4); LYMPH% 27.6 % (20.5-51.1); MCH 26.5 PG (27-31); MCV 85.3 FL (81-99); MONO# 0.57 X1000 (0.11-0.59); MONO% 9.5 % (1.7-9.3); MPV 8.9 FL (7.4-10.4); NEUT# 3.47 X1000 (1.4-6.5); NEUT% 57.6 % (42.2-75.2); PLT 452 X1000 (130-400); RBC 3.74 XMIL (4.2-5.4); RDW 17.6 % (11.5-14.5); WBC 6.02 X1000 (4.8-10.8)
[2018-06-21 08:02] LABS: CALCIUM 9.2 mg/dL (8.8-10.2); CREATININE 4.9 mg/dL (0.5-0.9); MAGNESIUM 2.4 mg/dL (1.5-2.7); PHOSPHORUS 5.8 mg/dL (2.7-4.5); POTASSIUM 3.8 mmol/L (3.5-5.1)
[2018-06-21] MEDS: MIRALAX PO PRN (09:05)
[2018-06-21] MEDS: PROTONIX IV SCH (09:06)
[2018-06-21] MEDS: MEGACE PO SCH ×3 (09:08→16:32)
[2018-06-21] MEDS: PATIENT'S OWN MED PO SCH ×2 (09:08→21:35)
[2018-06-21] MEDS: BASAGLAR SUBQ SCH (09:08)
[2018-06-21] MEDS: LACTULOSE PO SCH ×2 (09:08→21:35)
[2018-06-21] MEDS: SODIUM BICARBONATE PO SCH ×2 (09:10→21:35)
--- NOTE | 2018-06-21 13:03 | PROGRESS NOTE ---
DATE: 06/21/2018 SUBJECTIVE: This morning, Ms. Cedeno refers to be doing fairly okay. She says she took a very good amount of her breakfast and last night it is also documented that she had 100 percent of her dinner. OBJECTIVE: Vital signs: Blood pressure is 109/78, pulse is 108, respiration is 18, temperature is 98.7 degrees. The patient is saturating 98% on room air. General: Ms. Cedeno is a 37-year- old female. BMI is 32.6. She is in bed, no distress. HEENT: Mucosa is pink and moist. Anicteric. Acyanotic. Neck: Supple. Chest: Good air entry bilateral. There are some distant crackles, but no wheezing. No accessory muscle use. Cardiovascular: Regular rate and rhythm. No murmurs, no rubs, no gallops. GI: Abdomen is soft, nontender. Bowel sounds present. Extremities: No pedal edema. Distal pulses are present. There is a left femoral dialysis line. There is also a Morse catheter in place. 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 INPUT AND OUTPUT: The urine output is documented 800 which I am not quite convinced. 3000 mL of fluid was ultrafiltrated yesterday during dialysis. CURRENT LABORATORIES: WBC is 6.03, hemoglobin is 9.9, platelet count of 452,000. Chemistry is also reviewed and consistent with renal failure. ASSESSMENT: 1. Septic shock with Klebsiella pneumoniae bacteremia on presentation, improved. Subsequent blood cultures have been negative. 2. Acute hypoxemic respiratory failure. Patient was intubated and has been successfully extubated. Today is day 10 post extubation, currently on room air. 3. Oliguric acute kidney injury secondary to ATN, no recovery. The patient is now on scheduled dialysis Tuesdays, , and Saturdays. We will be pending further recommendations from Nephrology. 4. Diabetic ketoacidosis is controlled, resolved. 5. Global encephalopathy, resolved. 6. Diabetes mellitus with presenting A1c of 13. Current glucose levels are better controlled. We will continue with the current insulin regimen. 7. Generalized weakness and deconditioning secondary to critical illness polyneuropathy. We will continue with physical therapy. 8. Metabolic acidosis secondary to renal failure. This gets usually corrected during dialysis. Patient is also on oral sodium bicarbonate. The patient's serum bicarb this morning is up to 21. 9. History of schizophrenia with bipolar disorder. We have started her on her home medications. cc: Sandro Greer MD
[2018-06-21] MEDS: REMERON PO SCH (21:34)
[2018-06-22] MEDS: LOPRESSOR IV PRN (04:57)
[2018-06-22] MEDS: MERREM 1 GM in NS 50 ML IV SCH (05:00)
[2018-06-22] MEDS: ZYVOX 600 MG/D5W 600 MG/300 ML IVPB IV SCH (05:00)
[2018-06-22] MEDS: SYNTHROID PO SCH (06:50)
[2018-06-22] MEDS: HUMULIN R SUBQ SCH ×4 (06:50→22:25)
--- NOTE | 2018-06-22 07:06 | Diag Imaging Result Doc PS360 ---
EXAM: CHEST-1 VIEW HISTORY: pneumonia TECHNIQUE: Portable chest single view COMPARISON: 06/19/2018 FINDINGS: Poor inspiratory effort. The heart remains borderline mildly prominent with mild vascular distention. No consolidation. No pleural effusions identified. Stable mid lung infiltrates. IMPRESSION: No interval improvement. Electronically signed by Castillo Quiroz 06/22/2018 7:04 AM
[2018-06-22 07:32] LABS: BASO# 0.14 X1000 (0.0-0.2); BASO% 2.2 % (0.0-0.8); EOS# 0.31 X1000 (0.0-0.7); EOS% 4.8 % (0.0-10.0); HEMOGLOBIN 9.4 g/dL (12.0-16.0); LYMPH% 26.4 % (20.5-51.1); MCH 26.6 PG (27-31); MCHC 31.3 g/dL (33-37); MCV 84.7 FL (81-99); MONO# 0.62 X1000 (0.11-0.59); MONO% 9.6 % (1.7-9.3); MPV 8.9 FL (7.4-10.4); NEUT# 3.67 X1000 (1.4-6.5); PLT 410 X1000 (130-400); RBC 3.54 XMIL (4.2-5.4); RDW 16.9 % (11.5-14.5); WBC 6.44 X1000 (4.8-10.8)
[2018-06-22 08:03] LABS: CALCIUM 9.9 mg/dL (8.8-10.2); CREATININE 6.4 mg/dL (0.5-0.9); MAGNESIUM 2.4 mg/dL (1.5-2.7); PHOSPHORUS 7.5 mg/dL (2.7-4.5)
[2018-06-22] MEDS: SODIUM CHLORIDE 0.9% INJ SCH (09:33)
[2018-06-22] MEDS: MEGACE PO SCH ×3 (09:33→18:16)
[2018-06-22] MEDS: SODIUM BICARBONATE PO SCH ×2 (09:33→22:21)
[2018-06-22] MEDS: PATIENT'S OWN MED PO SCH ×2 (09:33→22:24)
[2018-06-22] MEDS: LACTULOSE PO SCH ×2 (09:33→22:25)
[2018-06-22] MEDS: PROTONIX IV SCH (09:33)
[2018-06-22] MEDS: BASAGLAR SUBQ SCH (09:33)
--- NOTE | 2018-06-22 11:00 | NEPHROLOGY PROGRESS NOTE ---
DATE: 06/22/2018 SUBJECTIVE: The patient is resting in bed. She is awake and alert. She states that physical therapy came and worked with her one day but has not worked with her since. OBJECTIVE: Vital Signs: Temperature 98.6 degrees, pulse 110, respiratory rate 17, blood pressure 111/75. Intake not measured. Output 30 mL. Physical Examination: General: This is a middle-aged female, resting in bed. She does not appear in acute distress. HEENT: Normocephalic, atraumatic. ISIAH. Neck: Supple. No JVD. Cardiovascular: Regular rate and rhythm. Pulmonary: She is clear bilaterally on room air. Abdomen: Soft, obese. Positive bowel sounds. : Not inspected. Extremities : Trace edema. No clubbing, cyanosis. Integumentary: Skin is pale, warm, and dry. She does have flushing to her cheeks. Lab Data: WBC of 6.4, hemoglobin 9.4. Sodium 137, potassium 4.0, CO2 19, creatinine 6.4, phosphorus 7.5. ASSESSMENT AND PLAN: 1. Acute kidney injury without recovery. We will continue her on a Friday, , Friday schedule while she remains in the hospital. 2. Previous pneumonia and respiratory failure, followed by pulmonology and primary. 3. Generalized weakness and deconditioning secondary to critical illness and polyneuropathy. Primary following and has consulted physical therapy. Dictated by PATRICIA Kohler for Alejandro Corona MD Face to face encounter, data reviewed, discussed with Greyson Hung on 06/22/18. I agree with the above assessment and plan of care. cc: Alejandro Corona MD [facility]
--- NOTE | 2018-06-22 13:37 | PROGRESS NOTE ---
DATE: 06/22/2018 SUBJECTIVE: This morning, Ms. Cedeno refers to be doing a lot better. Denies any complaints. OBJECTIVE: Vital signs: Blood pressure is 111/75, pulse is 110, respirations 17, temperature is 98.6. Patient is saturating 99% on room air. General: Ms. Cedeno is a 37-year-old, female. She is in bed. No distress. Vital Signs: Mucosa is pink and moist. Anicteric. Acyanotic. Neck: Supple. Chest: Good air entry bilaterally. No crepitations. No rhonchi. Cardiovascular: Regular rate and rhythm. No murmurs, no rubs, no gallops. Abdomen: Soft, distended, but nontender. Bowel sounds present. Extremities: No pedal edema. Distal pulses present. : Inguinal region: There is a left femoral dialysis line. Morse catheter is also in place. COMBATANT DIVER OFFICER: Patient is awake, alert, follows commands. Moves upper extremities better than the lower extremities. There is about 3/5 power on the left lower extremity. The right has probably about 2- power. LABORATORY DATA: WBC is 6.44, hemoglobin is 9.4, platelet count of 410. Chemistry is also reviewed, all consistent with renal failure. Patient I's and O's: Urine output 30 over 24 hours period of time. The patient was able to eat about 25% of her breakfast today. ASSESSMENT: 1. Septic shock on presentation with Klebsiella pneumoniae bacteremia, resolved. Subsequent blood cultures have been negative. 2. Acute hypoxemic respiratory failure. Patient was intubated initially and successfully extubated. Today is day 11 post extubation. He is currently breathing ambient air. 3. Acute oliguric kidney injury, secondary to acute tubular necrosis. No recovery. Patient is getting scheduled dialysis Tuesdays, and Saturdays. There is a plan for a tunnel cath to be placed. Nephrology is on board and they are going to arrange for this with surgery. 4. Diabetic ketoacidosis on presentation, resolved. 5. Diabetes mellitus with presenting A1c of 13.0, consistent with noncompliance. The patient has been advised extensively on this about compliance. Glucose is better controlled during the hospital course. 6. Metabolic acidosis, secondary to renal failure. The patient is getting oral supplementation. 7. Generalized weakness and deconditioning, secondary to critical illness polyneuropathy. Physical therapy is on board. Patient is also being seen by Neurology. 8. History of schizophrenia and bipolar disorder. Home medications have been resumed. PLAN: So in general, Ms. Cedeno has been in the hospital for the past 21 days, most of which were spent in the ICU. She was critically sick. Over the course of the hospital stay, she has been able to get extubated. Her hemodynamics have been stable. She has been successfully transferred to the floor and she is doing okay. She is still getting antibiotics for pneumonia, which ID is managing. The patient had acute kidney injury which has not recovered and she is getting dialysis and Dr. Corona plans to get her a tunnel catheter for a long-term dialysis needs. The patient also has generalized weakness, especially on the right lower extremity, but for the most part, everywhere is actually weak as a result of the critical illness polyneuropathy. The patient is getting physical therapy and it seems like she is improving some. We will continue with the current PT as well as Neurology recommendations. I think Ms. Cedeno is getting near for discharge. Social workers will be consulted for either LTAC placement or rehab placement. cc: Sandro Greer MD
--- NOTE | 2018-06-22 18:28 | INFECTIOUS DISEASE PROGRESS NO ---
DATE: 06/22/2018 PRESENT ILLNESS: The patient had a Klebsiella pneumonia and possibly a superimposed infection. I think now all of her infections have cleared and the findings on x-ray represent pulmonary venous congestion. MEDICATIONS: This is the 13th day of treatment with Zyvox and meropenem. PHYSICAL EXAMINATION: Vital Signs: Temperature is 97.9, pulse 111, respirations 18, blood pressure 128/80. General: This is an obese middle-aged female. She is in no acute distress. She is not having any dyspnea. Head, Eyes, Ears, Nose and Throat: She can hear my spoken words and see near objects. She does not have any white patches on her tongue. Neck: No stiffness. Lungs: Clear to auscultation. Cardiovascular: Regular heart rate. Abdomen: Soft and nontender. The patient has a right groin Vas-Cath in place. The site is not swollen or bleeding. Neurologic: Patient is alert. She is able to carry on a coherent can discussion. LAB AND X-RAY: Chest x-ray shows stable mid lung infiltrates. The patient's CBC shows a white count of 6440, hemoglobin 9.4, and platelet count of 410,000. Creatinine is 6.4. GFR is 7. ASSESSMENT AND PLAN: I think the patient's infections in the lung have cleared and my plan now is to stop her antibiotics. I will be available to see the patient back on a p.r.n. basis. COMORBIDITIES: The patient is obese. She has poorly controlled diabetes mellitus and now she has severe deconditioning. cc: Juan Engle MD
[2018-06-22] MEDS: TYLENOL PO PRN (22:21)
[2018-06-22] MEDS: REMERON PO SCH (22:21)
[2018-06-23] MEDS: SYNTHROID PO SCH (06:25)
[2018-06-23] MEDS: HUMULIN R SUBQ SCH ×4 (06:27→21:18)
[2018-06-23] MEDS ORDERED: NS 2,000 ML MISC PRN (07:26)
[2018-06-23] MEDS ORDERED: HEPARIN IV PRN (07:26)
[2018-06-23] MEDS ORDERED: TIGHT: 0.2 ML/HR FOR DIALYSIS MISC PRN (07:26)
[2018-06-23 08:07] LABS: BASO# 0.12 X1000 (0.0-0.2); BASO% 1.9 % (0.0-0.8); EOS# 0.38 X1000 (0.0-0.7); EOS% 6.1 % (0.0-10.0); HEMATOCRIT 29.1 % (37.0-47.0); HEMOGLOBIN 9.3 g/dL (12.0-16.0); IMM GRAN# 0.02 X1000 (0.0-0.04); IMM GRAN% 0.3 % (0.0-0.5); LYMPH# 1.62 X1000 (1.2-3.4); MCH 26.9 PG (27-31); MCV 84.1 FL (81-99); MONO# 0.48 X1000 (0.11-0.59); MONO% 7.7 % (1.7-9.3); MPV 8.9 FL (7.4-10.4); NEUT# 3.61 X1000 (1.4-6.5); PLT 399 X1000 (130-400); RBC 3.46 XMIL (4.2-5.4); RDW 16.8 % (11.5-14.5); WBC 6.23 X1000 (4.8-10.8)
[2018-06-23 09:20] LABS: CALCIUM 9.5 mg/dL (8.8-10.2); CREATININE 6.2 mg/dL (0.5-0.9); MAGNESIUM 2.5 mg/dL (1.5-2.7); PHOSPHORUS 8.5 mg/dL (2.7-4.5); POTASSIUM 4.1 mmol/L (3.5-5.1)
--- NOTE | 2018-06-23 14:20 | NEPHROLOGY PROGRESS NOTE ---
DATE: 06/23/2018 SUBJECTIVE: Patient resting in bed eating breakfast she states that they are working on placement for LTAC. OBJECTIVE: Vital Signs: Temperature 98.3, respiratory rate 20, blood pressure 123/76. Intake 950 mL, output 300 mL. General: This is a middle-aged female resting in bed. She is awake, alert, she is in no acute distress. HEENT: Normocephalic, atraumatic, ISIAH. Neck: Supple. Cardiovascular: Regular rate and rhythm. Pulmonary: Clear bilaterally remains on room air . Abdomen: Soft, obese, positive bowel sounds. : Not inspected. Extremities: Trace edema no clubbing, cyanosis. Integumentary: Skin is warm and dry. LAB DATA: WBC hemoglobin 9.3, sodium 137, potassium 4.1, CO2 18, creatinine 6.2, phosphorus 8.5. ASSESSMENT AND PLAN: 1. Acute kidney injury without recovery. We have asked surgery to exchange her Vas-Cath for a tunnel dialysis catheter. She is to have surgery today she is already eaten so we anticipate this will occur tomorrow. 2. Pneumonia, respiratory failure followed by pulmonary and primary. 3. Generalized weakness, conditioning secondary to critical illness and polyneuropathy. Patient working with social workers for LTAC placement. Dictated by PATRICIA Kohler for Alejandro Corona MD Face to face encounter, data reviewed, discussed with Greyson Hung on 06/23/18. I agree with the above assessment and plan of care. esteban cc: Alejandro Corona MD [facility]
[2018-06-23] MEDS ORDERED: INSULIN PEN NEEDLES ONE (15:15)
[2018-06-23] MEDS: PROTONIX IV SCH (15:30)
[2018-06-23] MEDS: SODIUM BICARBONATE PO SCH ×2 (15:30→21:19)
[2018-06-23] MEDS: MEGACE PO SCH ×3 (15:30→21:20)
[2018-06-23] MEDS: SODIUM CHLORIDE 0.9% INJ SCH (15:30)
[2018-06-23] MEDS: LACTULOSE PO SCH ×3 (15:30→21:20)
[2018-06-23] MEDS: PATIENT'S OWN MED PO SCH ×2 (15:32→21:19)
[2018-06-23] MEDS: BASAGLAR SUBQ SCH (15:32)
--- NOTE | 2018-06-23 16:35 | PROGRESS NOTE ---
DATE: 06/23/2018 SUBJECTIVE: Ms. Cedeno is doing much better. She is awake. She is eating. She is much stronger to lift her arms off the bed. She remained afebrile. OBJECTIVE: Vital Signs: Temperature 98.7 degrees, pulse 125, respirations 20, blood pressure 131/75. HEENT: Pupils are equal and round. Lungs: Clear in all lung melendez. Cardiovascular: Regular rhythm and rate without murmur or S3. Abdomen: Soft. Skin: Warm and dry. Urine output 500 mL. Blood sugar 177, 145, 153. ASSESSMENT AND PLAN: 1. Septic shock on presentation, Klebsiella pneumonia and bacteremia resolved. Subsequent blood cultures have been negative. 2. Acute hypoxemic respiratory failure. Prolonged time on the vent. This is day 12 post extubation, doing well with air and gas exchange. 3. Acute oliguric kidney failure secondary to tubular necrosis. No recovery. She continues to get dialysis as needed. Dialysis on Tuesdays, and Saturdays. Plan for a tunnel catheter placed. 4. Type 2 diabetic ketoacidosis on presentation, which resolved. 5. Diabetes mellitus. On presentation, A1c was 13 consistent with poor control. The patient has been advised extensively about diabetic care. Continue patterned sugars sliding scale. 6. Metabolic acidosis secondary to renal failure and also diabetic ketoacidosis. Continue to get oral supplementation. 7. General weakness and deconditioning. We are making slow improvement. This was secondary to critical illness and polyneuropathy, so continue physical therapy. Hoping to go to rehab. 8. History of schizophrenia bipolar disorder. Continue medications. Ms. Cedeno has been in the hospital for 22 days most of which has been ICU, critically sick. In the course of the hospital stay, she has been extubated her hemodynamics have been stable. She has been successfully transferred to the floor. 9. Review of her orders. She is on Remeron 15 mg at bedtime, Dulcolax suppository 10 mg per rectum daily p.r.n., heparin bolus I think this is with dialysis. She gets insulin glargine 20 units subcu q.a.m. lactulose 30 mL p.o. b.i.d., Synthroid 50 mcg daily. Megace 20 mg p.o. t.i.d., Lopressor 5 mg IV q.4 hours p.r.n., Protonix 40 mg a day. MiraLAX 17 g daily p.r.n. Sodium bicarbonate 650 mg b.i.d. Continue present therapy. LABORATORY DATA: Review of her labs today, white count 6230, hematocrit 29, platelet count 399,000. Chemistries: Sodium 137, potassium 4.1, chloride 99, bicarb is 18, BUN 70, creatinine 6.2. Last 4 sugars 131, 153, 135, 141. cc: Stanley Dexter MD
[2018-06-23] MEDS: REMERON PO SCH (21:19)
[2018-06-23] MEDS: TYLENOL PO PRN (21:22)
[2018-06-24] MEDS: SYNTHROID PO SCH (06:01)
[2018-06-24] MEDS: HUMULIN R SUBQ SCH ×3 (06:46→21:06)
[2018-06-24 07:42] LABS: BASO# 0.14 X1000 (0.0-0.2); BASO% 2.5 % (0.0-0.8); EOS# 0.37 X1000 (0.0-0.7); EOS% 6.5 % (0.0-10.0); HEMATOCRIT 30.2 % (37.0-47.0); HEMOGLOBIN 9.4 g/dL (12.0-16.0); LYMPH# 1.71 X1000 (1.2-3.4); LYMPH% 30.2 % (20.5-51.1); MCH 26.3 PG (27-31); MCHC 31.1 g/dL (33-37); MCV 84.6 FL (81-99); MONO# 0.55 X1000 (0.11-0.59); MONO% 9.7 % (1.7-9.3); MPV 8.9 FL (7.4-10.4); NEUT# 2.89 X1000 (1.4-6.5); NEUT% 51.1 % (42.2-75.2); PLT 418 X1000 (130-400); RBC 3.57 XMIL (4.2-5.4); RDW 16.7 % (11.5-14.5); WBC 5.66 X1000 (4.8-10.8)
[2018-06-24 07:47] LABS: INR 1.12; PROTIME 15.3 Seconds (11.0-16.0)
[2018-06-24 07:48] LABS: PTT 31.1 Seconds (22.3-41.8)
[2018-06-24 08:57] LABS: CALCIUM 9.9 mg/dL (8.8-10.2); CREATININE 4.6 mg/dL (0.5-0.9); MAGNESIUM 2.3 mg/dL (1.5-2.7); PHOSPHORUS 7.1 mg/dL (2.7-4.5); POTASSIUM 3.5 mmol/L (3.5-5.1)
[2018-06-24] MEDS: SODIUM BICARBONATE PO SCH ×2 (09:54→21:41)
[2018-06-24] MEDS: LACTULOSE PO SCH ×2 (09:54→21:42)
[2018-06-24] MEDS: MEGACE PO SCH ×3 (09:54→21:44)
[2018-06-24] MEDS: SODIUM CHLORIDE 0.9% INJ SCH (09:54)
[2018-06-24] MEDS: PROTONIX IV SCH (09:54)
[2018-06-24] MEDS: PATIENT'S OWN MED PO SCH ×2 (09:55→21:45)
[2018-06-24] MEDS: BASAGLAR SUBQ SCH (09:55)
[2018-06-24] MEDS ORDERED: CALMOSEPTINE OINTMENT TOP ONE (10:47)
--- NOTE | 2018-06-24 13:11 | NEPHROLOGY PROGRESS NOTE ---
DATE: 06/24/2018 TIME SEEN: 0750. SUBJECTIVE: Patient is resting in bed. She has no complaints this morning. OBJECTIVE: Vital Signs: Temperature 98.3 degrees, pulse 99, respiratory rate 18, blood pressure 121/83, intake 480 mL. Output 75 mL. General: This is a middle-aged female, resting in bed. She is awake and alert. She is in no acute distress. HEENT: Normocephalic, atraumatic. PERRL. Neck: Supple. No JVD. Cardiovascular: Regular rate and rhythm. Pulmonary: Clear bilaterally. Abdomen: Soft, positive bowel sounds. : Not inspected. Extremities: No clubbing, cyanosis, or edema. Integumentary: Skin is warm and dry. She flushing noted to the cheeks. LAB DATA: WBC of 5.6, hemoglobin 9.4. Sodium 132, potassium 3.5, CO2 20, creatinine 4.6. ASSESSMENT AND PLAN: 1. Acute kidney injury without recovery. We would hope that have her Vas-Cath exchange today. The surgery schedule does not allow that, so it appears that this will happen tomorrow, and then we will dialyze her immediately after. 2. Generalized weakness, has received some physical therapy and is working on LTAC. Dictated by PATRICIA Kohler for Alejandro Corona MD Face to face encounter, data reviewed, discussed with Greyson Hung on 06/24/18. I agree with the above assessment and plan of care. cc: Alejandro Corona MD [facility]
--- NOTE | 2018-06-24 16:20 | GENERAL SURGERY PROGRESS NOTE ---
DATE: 06/24/2018 SUBJECTIVE: She is feeling better. She has been transferred out to the floor and overall is improving. We are making plans for disposition. OBJECTIVE: Vital signs: No fevers. No tachycardia. Heart rate has been in the low 100s, blood pressure 120/69, oxygen saturation 99% on room air. General: She is alert. Neck: No bruising or swelling of her neck. Integument: Warm and dry. LABS: I reviewed her labs. White count is 5, hematocrit is 30. Creatinine is 4.6, potassium 3.5. ASSESSMENT AND PLAN: This is a 37-year-old female who has had a prolonged ICU course. Had a respiratory code event and DKA and unfortunately has persistent acute kidney injury requiring hemodialysis. We will place a tunneled catheter. I have discussed risk of bleeding, infection, damage to surrounding structures. She understands and consents. I have her on the schedule for the morning. Will make her NPO at midnight. cc: Kira De La Torre MD
[2018-06-24] MEDS ORDERED: BLISTEX MEDICATED BERRY LIP BALM TOP ONE (16:30)
--- NOTE | 2018-06-24 17:04 | PROGRESS NOTE ---
DATE: 06/24/2018 SUBJECTIVE: Ms. Cedeno is doing much better. She is getting stronger. She was awake. No complaints of pain. OBJECTIVE: Vital Signs: Remains afebrile. Temperature 97.8 degrees, pulse 115, respirations 20, blood pressure 128/69. HEENT: Pupils are equal and round. Lungs: Clear in all lung melendez. Cardiovascular: Regular rhythm and rate without murmur or S3. Abdomen: Soft, nontender. LABS: Blood sugars 141, 123, 164. ASSESSMENT AND PLAN: 1. This is a 37-year-old female with prolonged ICU course had a respiratory code and was in DKA. She has persistent acute kidney injury, acute tubular necrosis, so continue hemodialysis. They did place a tunneled catheter. 2. Diabetes mellitus. She is out of diabetic ketoacidosis. 3. Still has metabolic acidosis secondary to her acute tubular necrosis and her renal failure. 4. Generalized weakness and deconditioning. We are trying to get her to LTAC. 5. She has a history of hypothyroidism. Continue her present Synthroid. cc: Stanley Dexter MD
[2018-06-24] MEDS: REMERON PO SCH (21:41)
[2018-06-24] MEDS: TYLENOL PO PRN (21:44)
[2018-06-25] MEDS ORDERED: HEPARIN IV PRN ×2 (05:35→08:49)
[2018-06-25] MEDS ORDERED: TIGHT: 0.2 ML/HR FOR DIALYSIS MISC PRN (05:35)
[2018-06-25] MEDS ORDERED: NS 2,000 ML MISC PRN (05:35)
[2018-06-25] MEDS: HUMULIN R SUBQ SCH ×2 (06:24→14:26)
[2018-06-25] MEDS ORDERED: XYLOCAINE 1%/EPI 1:100,000 ONE (07:15)
[2018-06-25] MEDS ORDERED: HEPARIN ONE (07:16)
[2018-06-25] MEDS ORDERED: NS 250 ML ONE (07:17)
--- NOTE | 2018-06-25 07:26 | Diag Imaging Result Doc PS360 ---
EXAM: CHEST-1 VIEW INDICATION: SOB TECHNIQUE: One view COMPARISON: 06/22/2018 FINDINGS: The patient is rotated toward the right. Diffuse infiltrate on the left and milder infiltrate on the right, worse at the mid lung zones, are approximately stable. No new consolidation is identified. Cardiac silhouette is stable. IMPRESSION: Stable chest. Electronically signed by Cody Green 06/25/2018 7:24 AM
[2018-06-25] MEDS ORDERED: DIPRIVAN 1% ONE (07:43)
[2018-06-25] MEDS ORDERED: XYLOCAINE-MPF 2% ONE (07:43)
[2018-06-25] MEDS ORDERED: KEFZOL 2 GM/D5W 2 GM/50 ML IVPB ONE (07:45)
--- NOTE | 2018-06-25 10:41 | DISCHARGE SUMMARY ---
ADMISSION DATE: 06/01/2018 DISCHARGE DATE: 06/25/2018 HISTORY OF PRESENT ILLNESS: She presented on 06/01/2018 with nausea, vomiting, and fever. She had a history of apparent uncontrolled diabetes mellitus. She had nausea for several days before coming in. Denied any abdominal pain. No diarrhea. In the emergency room, white count was 23,000. She had diabetic ketoacidosis with severe metabolic acidosis and ketones. Also, an x-ray showed a left lower lobe pneumonia. She was very sick and hemodynamically became unstable. She had sepsis when she came in and suspected community-acquired pneumonia. HOSPITAL COURSE: Chest x-ray on 06/02/2018 was consistent with pneumonia. Pulmonary was consulted because of her acute hypoxemic, hypercapnic respiratory failure. She was intubated. They were going to try some weaning trials. She had a code blue on 06/02/2018. No pulse activity and O2 saturations dropped. She had been on BiPAP. She received 2 doses of bicarbonate and epinephrine. Then she was intubated. Noted decline in her renal function. Dr. Corona was consulted, acute kidney injury, felt consistent with acute tubular necrosis. Infectious disease was asked to see and treated the pneumonia with gram negative gerry bacteremia. She was on cefepime. Stayed on the ventilator for a prolonged period of time. We kept her on the diabetic protocol. Renal function did not show improvement and so dialysis was initiated. We were giving her tube feeding but she did show improvement of the acidosis. Was able to extubate. She was very weak. She became stronger and more interactive. Able to swallow. Moved her to the floor and continued her physical therapy. A chest x-ray from 06/22/2018, diffuse infiltrate on the left and mild infiltrate on the right. Clinically doing better. [place] she was okay and ready to go to long-term acute care. DISCHARGE MEDICATIONS: She will use Tylenol 650 mg q.4 hours p.r.n. She was getting acetaminophen IV but I think she can take that p.o. now p.r.n., fluphenazine 10 mg 1 p.o. b.i.d., Basaglar 20 units subcutaneous q.a.m., lactulose 30 mL b.i.d., Synthroid 50 mcg daily, Megace 20 mg p.o. t.i.d., getting Lopressor 5 mg IV q.4 hours p.r.n. heart rate greater than 110, Remeron 15 mg at bedtime, Protonix 40 mg IV daily, MiraLAX 17 g daily, bicarbonate 650 mg p.o. cc: Stanley Dexter MD
[2018-06-25 13:29] LABS: BASO% 2.5 % (0.0-0.8); EOS# 0.41 X1000 (0.0-0.7); HEMATOCRIT 33.4 % (37.0-47.0); HEMOGLOBIN 10.6 g/dL (12.0-16.0); IMM GRAN# 0.03 X1000 (0.0-0.04); IMM GRAN% 0.4 % (0.0-0.5); LYMPH# 1.91 X1000 (1.2-3.4); LYMPH% 23.5 % (20.5-51.1); MCH 26.6 PG (27-31); MCHC 31.7 g/dL (33-37); MCV 83.7 FL (81-99); MONO# 0.68 X1000 (0.11-0.59); MONO% 8.4 % (1.7-9.3); MPV 8.7 FL (7.4-10.4); NEUT# 4.89 X1000 (1.4-6.5); NEUT% 60.2 % (42.2-75.2); PLT 526 X1000 (130-400); RBC 3.99 XMIL (4.2-5.4); RDW 16.4 % (11.5-14.5); WBC 8.12 X1000 (4.8-10.8)
[2018-06-25 13:59] VITALS: BP 101/76
[2018-06-25] MEDS: BASAGLAR SUBQ SCH (14:21)
[2018-06-25] MEDS: LACTULOSE PO SCH (14:21)
--- NOTE | 2018-06-25 14:23 | NEPHROLOGY PROGRESS NOTE ---
DATE: 06/25/2018 DATE AND TIME SEEN: 06/25/2018, 0650. SUBJECTIVE: Ms. Cedeno is resting in bed. She is n.p.o. She is awaiting to go to surgery for placement of dialysis tunneled catheter. OBJECTIVE: Vital Signs: Last temperature 97.6, blood pressure 126/74, heart rate 118, respirations 22. She is on room air and last recorded saturation is 98%. She has had 600 in. She has had 275 mL out to void. LABS: Sodium last recorded at 132 with a potassium of 3.5, BUN of 51 with a creatinine of 4.6. Previous hemoglobin 9.4. PHYSICAL EXAM: General: This is a 37-year-old, white female resting quietly in bed. She appears chronically ill. No acute distress. Skin: Warm and dry. HEENT: Normocephalic, atraumatic. Conjunctivae is pale and pink. She has ISIAH. Mucous membranes are dry. Neck: Supple. Trachea midline. No evidence of JVD. Cardiovascular: She is regular rate and rhythm. She is without murmur or gallop. Lungs: Clear to auscultation bilaterally with equal excursion on room air. Abdomen: Distended. Soft. Nontender. Positive bowel sounds. Genitourinary: Not inspected. Minimal urine out but this has improved over the last 24 hours. Extremities: Trace of pretibial edema. No clubbing or cyanosis. Neurological: She is alert to person and to place. ASSESSMENT AND PLAN: 1. Acute kidney injury without recovery. She continues to require hemodialysis. She is scheduled for Vas-Cath removal and a dialysis tunneled catheter today. We will then take her to surgery for this. After surgery she is to go to inpatient dialysis. 2. Electrolytes and acid-base balance. These are fairly stable. 3. Anemia. This remains low, but stable. 4. Generalized weakness. The patient is scheduled to go to LTAC for improvement of her generalized weakness and fatigue. I would like to thank you for allowing us to follow with this patient. Dictated by PATRICIA Griffin for Alejandro Corona MD Face to face encounter, data reviewed, discussed with Kendra Garcia on 06/25/18. I agree with the above assessment and plan of care. cc: PATRICIA Griffindish, MD [facility]
[2018-06-25] MEDS: LOPRESSOR IV PRN (14:24)
[2018-06-25] MEDS: PROTONIX IV SCH (14:24)
[2018-06-25] MEDS: SODIUM CHLORIDE 0.9% INJ SCH (14:24)
[2018-06-25] MEDS: SODIUM BICARBONATE PO SCH (14:25)
[2018-06-25] MEDS: SYNTHROID PO SCH (14:26)
[2018-06-25 14:27] LABS: CALCIUM 9.3 mg/dL (8.8-10.2); CREATININE 1.9 mg/dL (0.5-0.9); PHOSPHORUS 2.7 mg/dL (2.7-4.5); POTASSIUM 2.9 mmol/L (3.5-5.1)
[2018-06-25] MEDS: MEGACE PO SCH ×2 (14:27)
--- NOTE | 2018-06-26 03:53 | OPERATIVE NOTE ---
PROCEDURE DATE: 06/25/2018 PREOPERATIVE DIAGNOSIS: End-stage renal disease secondary to acute kidney injury. POSTOPERATIVE DIAGNOSES: End-stage renal disease secondary to acute kidney injury. PROCEDURE PERFORMED: 1. Ultrasound-guided right internal jugular vein PermCath placement. 2. Fluoroscopy, less 1 hour. ESTIMATED BLOOD LOSS: 5 mL. SPECIMENS: None. ANESTHESIA: MAC, with local. INDICATION: A 37-year-old female admitted with DKA and had a code event. This left her after her code with acute renal failure that has failed to recover, and she needs outpatient hemodialysis. OPERATIVE FINDINGS: 1. Ultrasound of the right neck showed a compressible internal jugular vein, with no evidence of intraluminal thrombus. 2. Final fluoroscopic image showed good position of the catheter at the superior vena cava-atrial junction, with no kinking and no pneumothorax. OPERATIVE NOTE: Risks, benefits, alternatives were discussed with the patient. She consented to the procedure. She was seen preoperatively. Surgical site was confirmed. She was taken to the operating room, placed in supine position. IV anesthesia was administered. Bilateral neck, chest prepped with Betadine and draped in usual fashion. After placing her in Trendelenburg, we ultrasounded the right neck, and accessed the internal jugular vein on first pass. Dark nonpulsatile venous blood was noted on return. Wire threaded easily. We then made an incision below the level of the clavicle. Tunneled a cuffed 18 cm tip to curve catheter to the incision made larger in the neck, a double-lumen tube. Then, we serially dilated the tract, ending with a peel-away introducer sheath, and advanced the catheter. We peeled away the sheath. All ports withdrew blood, and flushed without resistance. Caps were applied. It was secured with a nylon suture. Incisions were closed with a 4-0 Monocryl. Dermabond was applied and dressing was applied. Final fluoroscopic images were appropriate. She tolerated it well. No complications. cc: Kira De La Torre MD
== END 2018-06-25 14:00 | DRG 870 ==
LOC: ED 12:08 → EDIPHOLD 12:09 → SUATTDRO 12:09 → 3S 17:10 → ICU 06-02 01:25 → 3N 06-19 14:10
PROVIDERS: ATTEND Emergency Medicine
CPT/HCPCS: 36430; 70450; 71010; 71045; 74000; 74018; 74230; 76700; 77001; 80048; 80053; 80069; 80074; 80101; 80178; 80196; 80301; 80307; 80324; 80329; 80345; 80346; 80353; 80358; 80361; 80365; 81001; 81025; 82003; 82009; 82040; 82271; 82550; 82607; 82728; 82746; 82784; 82805; 82948; 83036; 83540; 83550; 83605; 83735; 83880; 83992; 84100; 84134; 84145; 84439; 84443; 84484; 85014; 85018; 85025; 85610; 85730; 86850; 86900; 86901; 86920; 87040; 87070; 87077; 87088; 87186; 87205; 89220; 92611; 93005; 93010; 94002; 94003; 94660; 94761; 96374; 96375; 97110; 97162; 97165; 97530; 97535; 99285; 99291; A9270; C1750; C9113; G0431; G0434; G0479; G0480; G6038; G6039; J0131; J0171; J0610; J0690; J0692; J0696; J1644; J1650; J1940; J1956; J2020; J2060; J2185; J2405; J3370; J3475; J3480; J7030; J7040; J7042; J7050; J7060; J7070; P9016; S0164; S0179; XXXXX